=== PATIENT | male | born 1935 | race Caucasian/White ===

== ENCOUNTER → 2018-08-26 10:07 | Outpatient (CLI) | payer MEDICARE, OTHER, SELFPAY ==
--- NOTE | 2018-08-26 | DI.CT.S_ITS ---
PROCEDURE: CT HEAD/BRAIN WO CON INDICATIONS: Headache TECHNIQUE: Noncontrast 4.5 mm thick angled axial sections acquired from the foramen magnum to the vertex, with coronal and sagittal reformats. For radiation dose reduction, the following was used: automated exposure control, adjustment of mA and/or kV according to patient size. COMPARISON: None. FINDINGS: Image quality: Excellent. CSF spaces: Basal cisterns are patent. No extra-axial fluid collections. The ventricles are symmetric in size and shape. Brain: No intracranial bleeds or masses. There is cerebral volume loss for age, with resultant ventricular and sulcal prominence. There are periventricular and deep white matter chronic small vessel ischemic changes. There is intracranial internal carotid artery atherosclerosis. Skull and face: Calvarium and visualized facial bones appear intact, without suspicious lesions. Sinuses: Partially visualized trace bilateral maxillary sinus mucosal thickening. IMPRESSION: No acute intracranial process. Diffuse small white matter signal changes, probably represent chronic microvascular ischemic disease, versus statistically less likely demyelination or other infectious, inflammatory, neurodegenerative etiology, technically nonspecific. Dictated by: Russ Paulino M.D. on 08/26/2018 at 11:04 Approved by: Russ Paulino M.D. on 08/26/2018 at 11:06
== END ==
PROVIDERS: PCP Internal Medicine; Visit Provider Internal Medicine
DX: R51 Headache (principal)
CPT/HCPCS: 70450

== ENCOUNTER 2021-06-03 16:18 | Emergency (ER) | payer MEDICARE, OTHER, SELFPAY ==
[2021-06-03] VITALS (19 sets, daily range): BP systolic 132–174; BP diastolic 58–115; PULSE 67–101; RESP 13–27; TEMP 36.1; O2SAT 94–99; BMI 30.8
--- NOTE | 2021-06-03 16:53 | DI.RAD.S_ITS ---
PROCEDURE: XR CHEST 1V INDICATIONS: altered mental status TECHNIQUE: One view of the chest was acquired. COMPARISON: None. FINDINGS: Surgical changes and devices: None. Lungs and pleura: Lungs appear clear. No pleural effusions or pneumothorax. Mediastinum: Mediastinal contours appear normal. Heart size is within normal limits. Bones and chest wall: No suspicious bony lesions. Overlying soft tissues appear unremarkable. IMPRESSION: No acute cardiopulmonary abnormality identified. Dictated by: Emmanuel Monreal M.D. on 06/03/2021 at 17:16 Approved by: Emmanuel Monreal M.D. on 06/03/2021 at 17:16
[2021-06-03 17:19] LABS: Add Manual Diff / Slide Review NO; Basophils Absolute Auto 100 /uL (0-100); Basophils Percent Auto 1.2 % (0-2); Eosinophils Absolute Auto 300 /uL (0-450); Eosinophils Percent Auto 3.7 % (2-4); Hematocrit 39.1 % (41-53); Hemoglobin 13.3 g/dL (13.5-17.5); Lymphocytes Absolute Auto 1600 /uL (1100-4500); Lymphocytes Percent Auto 24.2 % (25-40); Mean Corpuscular HGB Conc 34.1 % (30-36); Mean Corpuscular Hemoglobin 32.6 PG (26-34); Mean Corpuscular Volume 95.6 fL (80-100); Monocytes Absolute Auto 800 /uL (0-900); Monocytes Percent Auto 12.2 % (3-14); Neutrophils Absolute Auto 4000 /uL (1500-7000); Neutrophils Percent Auto 58.7 % (50-75); Platelet Count 281 X10^3/uL (150-400); Red Blood Cell Count 4.09 X10^6/uL (4.5-5.9); Red Cell Distribution Width 14.5 % (11.6-14.8); White Blood Cell Count 6.8 X10^3/uL (4.5-11.0)
--- NOTE | 2021-06-03 17:28 | DI.CT.S_ITS ---
PROCEDURE: CT HEAD/BRAIN WO CON INDICATIONS: acute confusion TECHNIQUE: Noncontrast 4.5 mm thick angled axial sections acquired from the foramen magnum to the vertex, with coronal and sagittal reformats. For radiation dose reduction, the following was used: automated exposure control, adjustment of mA and/or kV according to patient size. COMPARISON: [facility], CT, CT HEAD/BRAIN WO CON, 08/26/2018, 10:19. FINDINGS: Image quality: Excellent. CSF spaces: Basal cisterns are patent. No extra-axial fluid collections. The ventricles are symmetric in size and shape. Brain: A focus of intraparenchymal hemorrhage can be seen involving the anterior aspect of the right frontal lobe that measures 3 cm. Moderate surrounding edema is seen. There is a mild amount of mass effect seen. There is cerebral volume loss for age, with resultant ventricular and sulcal prominence. There are periventricular and deep white matter chronic small vessel ischemic changes. There is intracranial internal carotid artery atherosclerosis. Skull and face: Calvarium and visualized facial bones appear intact, without suspicious lesions. Sinuses: Visualized sinuses and mastoids are clear. IMPRESSION: A 3 cm focus of right frontal lobe intraparenchymal hemorrhage can be seen, with surrounding edema and mild mass effect. Note: Critical finding acute intracranial hemorrhage discussed by telephone with Dr. Cummins at 5:00 p.m. [place] time on June 03, 2021. Dictated by: Lex Preston M.D. on 06/03/2021 at 16:58 Approved by: Lex Preston M.D. on 06/03/2021 at 17:00
[2021-06-03 17:47] LABS: Alanine Aminotransferase 25 IU/L (<50); Albumin 4.3 g/dL (3.5-5.0); Albumin Globulin Ratio 1.3 (1.0-2.8); Alkaline Phosphatase 52 U/L (38-126); Aspartate Aminotransferase 34 IU/L (17-59); BUN Creatinine Ratio 20.2 (6-22); Bilirubin Total 0.3 mg/dL (0.2-1.3); Blood Urea Nitrogen 17 mg/dL (9-20); Calcium 9.6 mg/dL (8.4-10.2); Carbon Dioxide 31 mmol/L (22-32); Chloride 102 mmol/L (98-107); Creatine Kinase 56 U/L (55-170); Estimated Glomerular Filt Rate > 60.0 mL/min (>60); Globulin 3.2 g/dL (1.7-4.1); Glucose 147 mg/dL (80-110); HEMOLYSIS < 15 (0-50); Potassium 4.1 mmol/L (3.4-5.1); Sodium 140 mmol/L (137-145); Total Protein 7.5 g/dL (6.3-8.2)
[2021-06-03 17:59] LABS: Troponin I < 0.012 ng/mL (0.01-0.034)
--- NOTE | 2021-06-03 18:02 | ED_ITS ---
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 His describes acute cold sensation with chills but no fever beginning on the of on the she noted some mild confusion and over the ensuing 4 days his symptoms seem to be stable if not improving. By the she felt that he was back to his baseline but on the again more confused she brings him him for further evaluation this evening. She describes no chest pain, palpitations, nausea, vomiting, diarrhea, abdominal pain. His chronic gait disturbance has not changed his vision that is limited due to the glaucoma has not change. He denies headache. They have not checked blood pressures or blood sugars over this week. She notes that his answers to questions are somewhat slowed however that does not seem to be so far off from his baseline. Specifically day notice no increased weakness, stumbling. They do note that he has had some chronic right side back pain approximately mid back and lateral for six-month was that is worse when he moves worse with a deep breath found for which they have not scheduled any appointments with the physician. On Anticoagulants: Yes (ASA 81 mg daily) Related Data Home Medications Medication Instructions Recorded Confirmed aspirin 81 mg tablet,delayed 81 mg PO QDAY #0 12/28/12 06/03/21 release allopurinol 300 mg tablet 300 mg PO DAILY 06/03/21 06/03/21 amlodipine 5 mg tablet 5 mg PO DAILY 06/03/21 06/03/21 brimonidine 0.2 %-timolol 0.5 % 1 drp EYE-RIGHT BID 06/03/21 06/03/21 eye drops (Kenzie) carvedilol 3.125 mg tablet 3.125 mg PO BID 06/03/21 06/03/21 dorzolamide 2 % eye drops 1 drp EYE-BOTH BID 06/03/21 06/03/21 losartan 100 mg tablet 100 mg PO DAILY 06/03/21 06/03/21 metformin 500 mg tablet 1,000 mg PO BID 06/03/21 06/03/21 pantoprazole 40 mg tablet,delayed 40 mg PO BID 06/03/21 06/03/21 release simvastatin 20 mg tablet 20 mg PO BEDTIME 06/03/21 06/03/21 Allergies Allergy/AdvReac Type Severity Reaction Status Date / Time No Known Drug Allergies Allergy Verified 06/03/21 16:28 Review of Systems Review of Systems Narrative: Remainder of complete review of systems is otherwise unremarkable except for that included in the HPI. Hematologic/Lymphatic On Anticoagulants: Yes (ASA 81 mg daily) Patient History Medical History (Updated 06/03/21 @ 19:20 by Maribel Ponce MD) Hyperlipidemia Hypertension Prostate cancer Type 2 diabetes mellitus Surgical History (Updated 06/03/21 @ 18:44 by Maribel Ponce MD) H/O blepharoplasty Social History Smoking Status: Former smoker Smoking Status: Former smoker alcohol intake frequency: 0-2 drinks per day Substance Use Type: does not use Exam Narrative Exam Narrative: General: no acute distress. Well-nourished well-developed. Slowed answers overall but he is able to speak without significant dysarthria HEENT: Moist mucous membranes, normal sclera, symmetrical extraocular eye movement, Neck: No JVD, supple Respiratory: Lungs are clear to auscultation, no wheezing no rales no rhonchi. Full and symmetrical air movement Cardiac: Regular rate and rhythm no murmurs no bruits Abdomen: Soft, nontender, good bowel tones, no flank pain Skin: Warm and dry, no rashes Neurologic: Moving all extremities, no decreased sensation, visual acuity seems to be at baseline with decreased vision in the left and blind in the right, overall cognitively slowed(which feels is his baseline), minor word-finding difficulties (again, feels this is baseline), no significant ataxia Extremities: No trauma, well perfused, no lower extremity edema Psych: Cooperative, fluent speech with normal thought process, cognitive slowin g Initial Vital Signs Initial Vital Signs: Vital Signs Temperature 97.0 F L 06/03/21 16:23 Pulse Rate 80 06/03/21 16:23 Respiratory Rate 17 06/03/21 16:23 Blood Pressure 168/78 H 06/03/21 16:23 Pulse Oximetry 99 06/03/21 16:23 Scores NIH Stroke Scale Level of Conciousness: Alert, keenly responsive Ask month/age: Answers both questions correctly. Open/close eyes, close hand: Performs both tasks correctly Best gaze horizontal: Normal (Limited by baseline visual deficits from severe glaucoma) Visual cobb: No visual loss (No change from his baseline) Facial palsy: Normal symetrical movement Left arm drift: No drift for full 10 sec Right arm drift: No drift for full 10 sec Left leg drift: No drift for full 5 sec Right leg drift: No drift for full 5 sec Limb ataxia: Absent Sensory on face/arms/legs: Normal, no sensory loss Best language: No aphasia, normal (Slowed responses but appropriate) Dysarthria: Normal Extinction or inattention: No abnormality Total NIH Stroke scale score: 0 Citation:: Patient has had a right frontal hemorrhagic stroke. As this is a hemorrhagic stroke, he is not a tPA candidate Course Orders Ordered: Discontinued Medications Nicardipine HCl 25 mg/ Sodium (Chloride) 250 mls @ 50 mls/hr IV TITRATE REBECA; Protocol Last Titration: 06/03/21 20:00 Dose: 0 mg/hr, 0 mls/hr Documented by: Admin: 06/03/21 18:05 Dose: 5 mg/hr, 50 mls/hr Documented by: AUTUMN Vital Signs Vital signs: Vital Signs - 8 hr 06/03/21 16:23 06/03/21 17:57 06/03/21 17:58 Temperature 97.0 F L Pulse Rate 80 67 Respiratory Rate 17 21 Blood Pressure 168/78 H 169/81 H Pulse Oximetry 99 94 96 06/03/21 18:00 06/03/21 18:01 06/03/21 18:10 Temperature Pulse Rate 69 70 70 Respiratory Rate 15 16 16 Blood Pressure 174/87 H 163/77 H Pulse Oximetry 98 98 96 06/03/21 18:20 06/03/21 18:25 06/03/21 18:30 Temperature Pulse Rate 79 83 91 H Respiratory Rate 17 23 25 H Blood Pressure 170/81 H Pulse Oximetry 98 98 06/03/21 18:31 06/03/21 18:40 06/03/21 18:50 Temperature Pulse Rate 101 H 77 78 Respiratory Rate 27 H 15 13 Blood Pressure 163/115 H 140/77 144/72 H Pulse Oximetry 98 98 98 06/03/21 19:00 06/03/21 19:01 06/03/21 19:10 Temperature Pulse Rate 78 79 95 H Respiratory Rate 15 16 20 Blood Pressure 149/70 H 157/91 H Pulse Oximetry 98 97 94 MDM - Neuro Symptoms/Deficit Lab Data Result diagrams: 06/03/21 17:14 06/03/21 17:14 Labs: Lab Results 06/03/21 06/03/21 06/03/21 Range/Units 17:14 17:14 17:14 WBC 6.8 (4.5-11.0) X10^3/uL RBC 4.09 L (4.5-5.9) X10^6/uL Hgb 13.3 L (13.5-17.5) g/dL Hct 39.1 L (41-53) % MCV 95.6 (80-100) fL MCH 32.6 (26-34) PG MCHC 34.1 (30-36) % RDW 14.5 (11.6-14.8) % Plt Count 281 (150-400) X10^3/uL Neut % (Auto) 58.7 (50-75) % Lymph % (Auto) 24.2 L (25-40) % [place] % (Auto) 12.2 (3-14) % Eos % (Auto) 3.7 (2-4) % Baso % (Auto) 1.2 (0-2) % Neut # (Auto) 4000 (2970-0231) /uL Lymph # (Auto) 1600 (7607-6957) /uL [place] # (Auto) 800 (0-900) /uL Eos # (Auto) 300 (0-450) /uL Baso # (Auto) 100 (0-100) /uL Sodium 140 (137-145) mmol/L Potassium 4.1 (3.4-5.1) mmol/L Chloride 102 (98-107) mmol/L Carbon Dioxide 31 (22-32) mmol/L BUN 17 (9-20) mg/dL Creatinine 0.84 (0.66-1.25) mg/dL Estimated GFR > 60.0 (>60) mL/min BUN/Creatinine Ratio 20.2 (6-22) Glucose 147 H (80-110) mg/dL Calcium 9.6 (8.4-10.2) mg/dL Total Bilirubin 0.3 (0.2-1.3) mg/dL AST 34 (17-59) IU/L ALT 25 (<50) IU/L Alkaline Phosphatase 52 (38-126) U/L Total Creatine Kinase 56 (55-170) U/L CK-MB (CK-2) TNP CK-MB (CK-2) Rel Index TNP Troponin I < 0.012 (0.01-0.034) ng/mL Total Protein 7.5 (6.3-8.2) g/dL Albumin 4.3 (3.5-5.0) g/dL Globulin 3.2 (1.7-4.1) g/dL Albumin/Globulin Ratio 1.3 (1.0-2.8) U Opiates 300ng/mL cut (Negative) Ur Oxycodone Screen (Negative) Urine Methadone Screen (Negative) Ur Barbiturates Screen (Negative) U Tricyclic Antidepress (Negative) Ur Phencyclidine Scrn (Negative) Ur Amphetamines Screen (Negative) U Methamphetamines Scrn (Negative) Ur MDMA Scrn (Ecstasy) (Negative) U Benzodiazepines Scrn (Negative) Urine Cocaine Screen (Negative) U Marijuana (THC) Screen (Negative) SARS-CoV-2 (PCR) (Negative) 06/03/21 06/03/21 Range/Units 18:02 18:43 WBC (4.5-11.0) X10^3/uL RBC (4.5-5.9) X10^6/uL Hgb (13.5-17.5) g/dL Hct (41-53) % MCV (80-100) fL MCH (26-34) PG MCHC (30-36) % RDW (11.6-14.8) % Plt Count (150-400) X10^3/uL Neut % (Auto) (50-75) % Lymph % (Auto) (25-40) % [place] % (Auto) (3-14) % Eos % (Auto) (2-4) % Baso % (Auto) (0-2) % Neut # (Auto) (7420-4593) /uL Lymph # (Auto) (8084-7671) /uL [place] # (Auto) (0-900) /uL Eos # (Auto) (0-450) /uL Baso # (Auto) (0-100) /uL Sodium (137-145) mmol/L Potassium (3.4-5.1) mmol/L Chloride (98-107) mmol/L Carbon Dioxide (22-32) mmol/L BUN (9-20) mg/dL Creatinine (0.66-1.25) mg/dL Estimated GFR (>60) mL/min BUN/Creatinine Ratio (6-22) Glucose (80-110) mg/dL Calcium (8.4-10.2) mg/dL Total Bilirubin (0.2-1.3) mg/dL AST (17-59) IU/L ALT (<50) IU/L Alkaline Phosphatase (38-126) U/L Total Creatine Kinase (55-170) U/L CK-MB (CK-2) CK-MB (CK-2) Rel Index Troponin I (0.01-0.034) ng/mL Total Protein (6.3-8.2) g/dL Albumin (3.5-5.0) g/dL Globulin (1.7-4.1) g/dL Albumin/Globulin Ratio (1.0-2.8) U Opiates 300ng/mL cut Negative (Negative) Ur Oxycodone Screen Negative (Negative) Urine Methadone Screen Negative (Negative) Ur Barbiturates Screen Negative (Negative) U Tricyclic Antidepress Negative (Negative) Ur Phencyclidine Scrn Negative (Negative) Ur Amphetamines Screen Negative (Negative) U Methamphetamines Scrn Negative (Negative) Ur MDMA Scrn (Ecstasy) Negative (Negative) U Benzodiazepines Scrn Negative (Negative) Urine Cocaine Screen Negative (Negative) U Marijuana (THC) Screen Negative (Negative) SARS-CoV-2 (PCR) Negative (Negative) Imaging Data CT scan - head: Radiologist's Impression: FINDINGS:? Image quality:? Excellent.? ? CSF spaces:? Basal cisterns are patent.? No extra-axial fluid collections.? The ventricles are symmetric in size and shape.? ? Brain:? A focus of intraparenchymal hemorrhage can be seen involving the anterior aspect of the right frontal lobe that measures 3 cm.? Moderate surrounding edema is seen.? There is a mild amount of mass effect seen. ? There is cerebral volume loss for age, with resultant ventricular and sulcal prominence.? There are periventricular and deep white matter chronic small vessel ischemic changes.? There is intracranial internal carotid artery atherosclerosis.? ? Skull and face:? Calvarium and visualized facial bones appear intact, without suspicious lesions.? ? Sinuses:? Visualized sinuses and mastoids are clear.? ? ? IMPRESSION:? A 3 cm focus of right frontal lobe intraparenchymal hemorrhage can be seen, with surrounding edema and mild mass effect. ? Note:? Critical finding acute intracranial hemorrhage discussed by telephone with Dr. Cummins at 5:00 p.m. [place] time on June 03, 2021. ? ? ? Dictated by: Lex Preston M.D. on 06/03/2021 at 16:58 ? ? Chest x-ray: Radiologist's Impression: FINDINGS:? ? Surgical changes and devices:? None.? ? Lungs and pleura:? Lungs appear clear.? No pleural effusions or pneumothorax.? ? Mediastinum:? Mediastinal contours appear normal.? Heart size is within normal limits.? ? Bones and chest wall:? No suspicious bony lesions.? Overlying soft tissues appear unremarkable.? ? IMPRESSION:? No acute cardiopulmonary abnormality identified. ? ? ? Dictated by: Emmanuel Monreal M.D. on 06/03/2021 at 17:16 ? ? ECG Data Interpretation: Sinus rhythm at a rate of 73 Frequent PVCs Left ventricular hypertrophy No acute ischemic changes MDM Narrative Medical decision making narrative: 55-year-old gentleman with a right frontal hemorrhagic stroke likely 5 to 6-day-old with surrounding vasogenic edema but no significant shift. Main concern is some mild confusion. His is concerned that he does not complete sentences. She notes that they both 10 to have increasing difficulty with word finding as they age that his issues have been more pronounced over the last couple of days. She notes that his higher cognitive functions are somewhat impaired and gives an example of not being able to get into their online bank account. At this point he is a full code and would consider surgery if recommended but would want to know pros and cons of surgical intervention 6:40 pmCT scans were pushed to [facility] however due to current pandemic beds for shortage is they are excepting only transfers critical access hospital. Films were concurrently pushed to [facility] and we are currently waiting for the transfer center to return call Moderately hypertensive with systolics in the 170s to 180s. Nicardipine has been initiated and will aim for a systolic blood pressure in the 140-160 range. As he does not currently have any shift and the bleed is likely a week old will aim closer to the 160 range until directed otherwise by Neurosurgery. 7:11pm [facility]. Directly to medicine attending ER. Accepted ED-ED transfer accepting Dr Brianna Brown. 7:20 findings and plan reviewed with patient and . Questions are answered. Critical Care Time Critical Care Time Critical Care Time: Yes Total Critical Care Time: 39 Attestation: Critical care time is separate from other billable procedures. There is a high probability of a significant, sudden or life-threatening deterioration that requires my full and direct attention, intervention and personal management. This critical care time includes consultation with family and other consulting doctors, review of records, and interpretation of data from labs, EKGs and imaging as well as managements of acute hemorrhagic stroke with hypertensive crisis and IV blood pressure management Discharge Plan Departure Patient Disposition: [facility] Clinical Impression: Hemorrhagic stroke Prescriptions: No Action aspirin 81 MG tablet,delayed release (DR/EC) 81 mg PO QDAY Qty: 0 0RF metformin 500 mg tablet 1,000 mg PO BID 0RF Label Comments: TAKE TWO TABLETS BY MOUTH TWICE DAILY amlodipine 5 mg tablet 5 mg PO DAILY 0RF Label Comments: TAKE 1 TABLET BY MOUTH ONCE A DAY carvedilol 3.125 mg tablet 3.125 mg PO BID 0RF Label Comments: TAKE 1 TABLET BY MOUTH TWICE A DAY WITH FOOD pantoprazole 40 mg tablet,delayed release (DR/EC) 40 mg PO BID 0RF simvastatin 20 mg tablet 20 mg PO BEDTIME 0RF Label Comments: TAKE 1 TABLET BY MOUTH DAILY allopurinol 300 mg tablet 300 mg PO DAILY 0RF Label Comments: TAKE 1 TABLET BY MOUTH EVERY DAY losartan 100 mg tablet 100 mg PO DAILY 0RF Label Comments: TAKE 1 TABLET BY MOUTH DAILY dorzolamide 2 % drops 1 drp EYE-BOTH BID 0RF Label Comments: INSTILL 1 DROP INTO BOTH EYES TWICE A DAY Combigan 0.2-0.5 % drops 1 drp EYE-RIGHT BID 0RF Label Comments: INSTILL 1 DROP IN THE RIGHT EYE EVERY 12 HOURS Referrals: Joseph Crespo MD [Primary Care Provider] -
[2021-06-03] MEDS: NICARDIPINE 25 MG in SODIUM CHLORIDE 0.9% 240 ML 50 ML IV (18:05)
[2021-06-03 18:33] LABS: COVID19 -Nasal RAPID Negative (Negative)
[2021-06-03 18:54] LABS: UR Morphine/Opiate cutoff 300 Negative (Negative); Ur Creatinine Normal (Normal); Ur Specific Gravity Normal (Normal); Urine Amphetamines Negative (Negative); Urine Barbiturates Negative (Negative); Urine Benzodiazepines Negative (Negative); Urine Cocaine Negative (Negative); Urine MDMA Negative (Negative); Urine Methadone Negative (Negative); Urine Methamphetamines Negative (Negative); Urine Oxycodone Negative (Negative); Urine Phencyclidine Negative (Negative); Urine Tetrahydrocannabinol Negative (Negative); Urine Tricyclic Antidepressant Negative (Negative); Urine pH Normal (Normal)
--- NOTE | 2021-06-03 20:01 | PC.NURSE ---
Report given to KLAUDIA RN, Nicardipine continued with [facility] crew.
--- NOTE | 2021-06-03 20:05 | PC.NURSE ---
Gave Directions and main Phone Number and instructed her to take pt valuables home with her.
== END 2021-06-03 20:10 | disposition short-term general hospital (02) ==
PROVIDERS: Emergency Medicine; Emergency Provider Emergency Medicine; PCP Internal Medicine
DX: I61.8 Other nontraumatic intracerebral hemorrhage (principal); I10 Essential (primary) hypertension; Z20.822 Contact with and (suspected) exposure to COVID-19; Z87.891 Personal history of nicotine dependence
CPT/HCPCS: 36415; 70450; 71045; 80053; 80305; 82550; 84484; 85025; 87086; 87635; 93005; 96365; 96366; 99284; 99291; C9803

== ENCOUNTER → 2021-09-30 13:58 | Outpatient (CLI) | payer MEDICARE, OTHER, SELFPAY ==
--- NOTE | 2021-09-30 | DI.MRI.S_ITS ---
PROCEDURE: MR HEAD/BRAIN WO/W CON INDICATIONS: Nontraumatic intracranial hemorrhage, unspecified TECHNIQUE: Noncontrast axial T1 spin echo, axial T2 fast spin echo, sagittal and axial FLAIR, coronal T2 fast spin echo, axial gradient echo, axial diffusion and ADC through the brain. After the administration of contrast, axial and coronal T1 spin echo with fat saturation through the brain. COMPARISON: [facility], CT, CT HEAD/BRAIN WO CON, 08/26/2018, 10:19. [facility], CT, CT HEAD/BRAIN WO CON, 06/03/2021, 17:47. FINDINGS: Image quality: Excellent. CSF spaces: Basal cisterns are patent. No extra-axial fluid collections. Ventricles are normal in size and shape. Brain: No midline shift. No intracranial bleeds or masses. No abnormal intracranial enhancement. There is cerebral volume loss for age. There is periventricular white matter chronic small vessel ischemic change. The brainstem appears normal. Diffusion-weighted images demonstrate no acute ischemic insults. Focal volume loss and encephalomalacia and hemosiderin deposition can be seen involving the right frontal lobe at the site of patient's known prior hemorrhagic infarction. Normal intravascular flow voids are present. Skull and face: Calvarial marrow is normal in signal. Orbits appear normal. Note is made of bilateral lens replacements. Sinuses: Sinuses and mastoids appear clear. IMPRESSION: Expected evolution of the patient's known prior right frontal lobe hemorrhagic infarction. No masses or abnormal enhancement can be seen. Note is made of age-appropriate brain parenchymal volume loss and chronic small vessel ischemic changes. Dictated by: Lex Preston M.D. on 09/30/2021 at 13:56 Approved by: Lex Preston M.D. on 09/30/2021 at 13:59
== END ==
PROVIDERS: PCP Internal Medicine; Referring Provider Psychiatry & Neurology Vascular Neurology; Visit Provider Psychiatry & Neurology Vascular Neurology
DX: I62.9 Nontraumatic intracranial hemorrhage, unspecified (principal); Z86.79 Personal history of other diseases of the circulatory system
CPT/HCPCS: 70553; A9579

== ENCOUNTER → 2021-11-07 11:12 | Outpatient (CLI) | payer MEDICARE, OTHER, SELFPAY ==
[2021-11-07 12:19] LABS: Hematocrit 37.9 % (41-53); Hemoglobin 12.7 g/dL (13.5-17.5); Mean Corpuscular HGB Conc 33.6 % (30-36); Mean Corpuscular Volume 95.3 fL (80-100); Platelet Count 284 X10^3/uL (150-400); Red Blood Cell Count 3.98 X10^6/uL (4.5-5.9); Red Cell Distribution Width 15.4 % (11.6-14.8); White Blood Cell Count 6.3 X10^3/uL (4.5-11.0)
[2021-11-07 12:38] LABS: Alanine Aminotransferase 19 IU/L (<50); Albumin 4.2 g/dL (3.5-5.0); Albumin Globulin Ratio 1.8 (1.0-2.8); Alkaline Phosphatase 52 U/L (38-126); Aspartate Aminotransferase 25 IU/L (17-59); BUN Creatinine Ratio 19.1 (6-22); Bilirubin Total 0.3 mg/dL (0.2-1.3); Blood Urea Nitrogen 17 mg/dL (9-20); Calcium 9.3 mg/dL (8.4-10.2); Carbon Dioxide 29 mmol/L (22-32); Chloride 103 mmol/L (98-107); Cholesterol 118 mg/dL (140-199); Estimated Glomerular Filt Rate > 60 mL/min (>60); Globulin 2.4 g/dL (1.7-4.1); Glucose 206 mg/dL (80-110); HDL Cholesterol 42 mg/dL (40-60); HEMOLYSIS < 15 (0-50); LDL Cholesterol Calculated 45 mg/dL (<100); Potassium 4.8 mmol/L (3.4-5.1); Sodium 140 mmol/L (137-145); Total Protein 6.6 g/dL (6.3-8.2); Triglycerides 153 mg/dL (35-150)
[2021-11-07 12:45] LABS: Hemoglobin A1C% w Est Avg Glu 9.2 % (4.0-6.0)
[2021-11-07 13:09] LABS: TSH w/ Reflex to FT4 3.91 uIU/mL (0.47-4.68)
[2021-11-07 13:29] LABS: Prostate Specific Antigen < 0.064 ng/mL (0.10-4.00)
== END ==
PROVIDERS: PCP Internal Medicine; Referring Provider Internal Medicine; Visit Provider Internal Medicine
DX: E85.4 Organ-limited amyloidosis (principal); E78.2 Mixed hyperlipidemia; Z85.46 Personal history of malignant neoplasm of prostate; E11.40 Type 2 diabetes mellitus with diabetic neuropathy, unspecified; I68.0 Cerebral amyloid angiopathy
CPT/HCPCS: 36415; 80053; 80061; 83036; 84153; 84443; 85027

== ENCOUNTER → 2022-02-06 10:57 | Outpatient (CLI) | payer MEDICARE, OTHER, SELFPAY ==
[2022-02-06 12:12] LABS: BUN Creatinine Ratio 18.8 (6-22); Blood Urea Nitrogen 19 mg/dL (9-20); Calcium 9.3 mg/dL (8.4-10.2); Carbon Dioxide 27 mmol/L (22-32); Chloride 104 mmol/L (98-107); Estimated Glomerular Filt Rate > 60 mL/min (>60); Glucose 194 mg/dL (80-110); HEMOLYSIS < 15 (0-50); Potassium 4.8 mmol/L (3.4-5.1); Sodium 139 mmol/L (137-145)
== END ==
PROVIDERS: PCP Internal Medicine; Referring Provider Internal Medicine; Visit Provider Internal Medicine
DX: E11.40 Type 2 diabetes mellitus with diabetic neuropathy, unspecified (principal); I62.9 Nontraumatic intracranial hemorrhage, unspecified; E85.4 Organ-limited amyloidosis; I68.0 Cerebral amyloid angiopathy
CPT/HCPCS: 36415; 80048; 83036

== ENCOUNTER → 2022-02-17 12:11 | Outpatient (CLI) | payer MEDICARE, OTHER, SELFPAY | PROVIDERS: PCP Internal Medicine; Visit Provider Nurse Practitioner Family | DX: N34.3 Urethral syndrome, unspecified (principal) | CPT/HCPCS: 87086 ==

== ENCOUNTER → 2022-02-20 11:32 | Outpatient (CLI) | payer MEDICARE, OTHER, SELFPAY ==
--- NOTE | 2022-02-20 11:34 | DI.MRI.S_ITS ---
PROCEDURE: MR HEAD/BRAIN WO/W CON INDICATIONS: CVA TECHNIQUE: Noncontrast axial T1 spin echo, axial T2 fast spin echo, sagittal and axial FLAIR, coronal T2 fast spin echo, axial gradient echo, axial diffusion and ADC through the brain. After the administration of contrast, axial and coronal and sagittal 3D VIBE or T1 spin echo with fat saturation through the brain. COMPARISON: [facility], MR, MR HEAD/BRAIN WO/W CON, 09/30/2021, 14:23. FINDINGS: Severe global cerebral volume loss and severe chronic microvascular ischemic changes, similar to 09/30/2021 exam. Right frontal encephalomalacia and gliosis related to remote infarct also similar. No abnormal intracranial enhancement. No unexpected intracranial susceptibility. No findings of mass effect or midline shift. Patent ventricular system and basilar cisterns. No acute orbital abnormality. Paranasal sinuses and mastoid air cells are predominantly clear. IMPRESSION: No acute finding. Chronic findings similar to the previous exam. Dictated by: Tj Beasley M.D. on 02/20/2022 at 13:21 Approved by: Tj Beasley M.D. on 02/20/2022 at 13:24
== END ==
PROVIDERS: PCP Internal Medicine; Referring Provider Internal Medicine; Visit Provider Internal Medicine
DX: I62.9 Nontraumatic intracranial hemorrhage, unspecified (principal); E85.4 Organ-limited amyloidosis; I68.0 Cerebral amyloid angiopathy
CPT/HCPCS: 70553

== ENCOUNTER → 2022-03-08 12:30 | Outpatient (CLI) | payer MEDICARE, OTHER, SELFPAY ==
--- NOTE | 2022-03-08 12:33 | DI.CT.S_ITS ---
PROCEDURE: CT IVP A/P W/WO INDICATIONS: Hematuria TECHNIQUE: Optional 5 mm thick noncontrast images acquired from the diaphragm to the symphysis pubis. After the administration of intravenous contrast, 5 mm thick images acquired from the diaphragm to the symphysis pubis after a 10-minute delay. 2 mm thick coronal and sagittal reformats were then performed of the kidneys and ureters. For radiation dose reduction, the following was used: automated exposure control, adjustment of mA and/or kV according to patient size. COMPARISON: [facility], CR, L-SPINE 2-3 VIEWS, 06/29/2013, 14:30. [facility], CT, ABDOMEN/PELVIS WITH CONTRAST, 03/22/2012, 12:42. FINDINGS: Image quality: Excellent. Lung bases: Lung bases are clear. Heart size is normal. Advanced coronary artery calcification can be seen. There is a moderate hiatal hernia. Urinary system: Both kidneys are normal in size, without hydronephrosis or nephrolithiasis on pre-contrast images. No perinephric fat stranding. There is normal bilateral renal enhancement. Renal calyces appear normal in morphology when filled with contrast. Opacified portions of both ureters demonstrate normal caliber. Bladder wall thickness is exrley-vp-mhzsjaeklg thickening. No calcified bladder stones. Prostate seed implants can be seen. Other solid organs: Along the right liver dome, there is a lobulated focus without significant enhancement measures 3.3 cm, which is attributed to a cyst. The liver is normal in size and demonstrates no suspicious lesions. Gallbladder wall is not thickened. Biliary system is non dilated. Pancreas enhances normally. Spleen is normal in size and enhancement. Generalized thickening is seen of the left adrenal gland. No ernestine adrenal nodules. Peritoneum and bowel: Bowel loops demonstrate normal wall thickness and caliber. No free fluid or air. Colonic diverticulosis is seen, without findings of active diverticulitis. Nodes and vessels: No retroperitoneal or mesenteric adenopathy by size criteria. Aorta and inferior vena cava are normal in size. Prominent atherosclerotic calcification is noted of the aorta. Abdominal wall: There is a moderate fat containing periumbilical hernia Pelvis: No pathologic free pelvic fluid. No inguinal adenopathy. There is a trace right-sided and moderate left-sided inguinal hernia. Bones: No suspicious bony lesions. No vertebral body compression fractures. At least moderate generalized degenerative changes are seen. IMPRESSION: No ernestine cause of hematuria can be seen. Pcqf-fo-[id number] generalized bladder wall thickening is seen, which is felt most likely be related to bladder outlet obstruction in a male patient of this age. No stones or renal masses are seen. Incidental note is made of: Advanced coronary artery calcification Moderate hiatal hernia Apparent liver cyst, stable from 2011 Generalized thickening of the left adrenal gland Moderate fat containing periumbilical hernia Prominent calcification of the aorta Diverticulosis, without active diverticulitis Prostate seed implants Bilateral fat containing inguinal hernias, right larger than left Dictated by: Lex Preston M.D. on 03/08/2022 at 15:10 Approved by: Lex Preston M.D. on 03/08/2022 at 15:16
== END ==
PROVIDERS: Family Provider Internal Medicine; PCP Internal Medicine; Referring Provider Urology; Visit Provider Urology
DX: R31.0 Gross hematuria (principal); I25.10 Atherosclerotic heart disease of native coronary artery without angina pectoris; K44.9 Diaphragmatic hernia without obstruction or gangrene; K42.9 Umbilical hernia without obstruction or gangrene; K40.20 Bilateral inguinal hernia, without obstruction or gangrene, not specified as recurrent; I70.0 Atherosclerosis of aorta; K57.90 Diverticulosis of intestine, part unspecified, without perforation or abscess without bleeding; Z85.46 Personal history of malignant neoplasm of prostate
CPT/HCPCS: 74178; Q9967

== ENCOUNTER 2022-03-31 11:30 | Outpatient (RCR) | payer MEDICARE, OTHER, SELFPAY ==
--- NOTE | 2022-03-24 17:51 | ST.OPIE ---
Visit Care Team Role Provider Type Joseph Crespo MD Attending Provider Physician Family Provider Primary Care Provider Referring Provider Specialty: Internal Medicine Address: [address] [place] [address], [facility] Email: [email or web address] Speech-Language Pathology Initial Evaluation [employer] Adult Cognitive Linguistic Eval Start: 03/24/22 17:15 Freq: Status: Active Protocol: Document 03/24/22 17:41 LNK (Rec: 03/24/22 17:51 LNK [id number]) Adult Cognitive Linguistic Evaluation Session Time Visit Start Time 11:30 Visit Stop Time 12:30 Total Visit Minutes 60 Visit Information Visit Number 1 Plan of Care Dates 03/24/22-06/23/22 Referral Reason for Referral WF/Memory Setting Assessment Location Outpatient Care Visit Type Note Type Initial evaluation Next Note Type Next Note Type Treatment Note Patient Information Identification Type Name Patient History Pt was seen for c/o memory difficulties and 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 Pt was transferred from [facility] to [facility], where he received treatment. MRI results indicated a 3cm infarct in the right frontal lobe. According to him and his , his WFD and memory have improved since May. Pt and his also reported that their daughter had a stroke recently and they are concerned for her. Pt is also receiving PT,and has a scheduled sleep apnea test coming soon. Pt is not sure that he wants to take on something new with ST Hearing Hearing Level Hearing Aids Previous Therapy Previous Speech-Language Therapy No Informal Assessment Receptive Language Normal WFL Expressive Language Normal No: Pt c/o WFD Expressive Language Impairment(s) Confrontation naming,Divergent naming Pragmatic Language Normal Yes Speech Normal No: No overt s/sx of dysarthria or apraxia; however pt speaks very slowly Cognition Normal No: Pt c/o memory Cognitive Impairment(s) Short-term memory Formal Assessment Results Session was spent gathering background and PMH. Pt speaks very slowly with long pauses between words. According to the pt's , he has always been a slow speaker, however, his speaking has become slower since his stroke. Overall, the pt presented with mild WFD/ aphasia. He was able to express himself clearly with few occasions of WFD. Because of this, the session was spent gathering information and discussing with pt whether or not he wants to continue therapy . He stated his priority is his daughter. Pt and his were encouraged to discuss his options and they will notify this clinic with their decision.
--- NOTE | 2022-03-31 16:36 | ST.OPDS ---
Visit Care Team Role Provider Type Joseph Crespo MD Attending Provider Physician Family Provider Primary Care Provider Referring Provider Address: [address] [place] [address], [id number] HOSPITAL LABORATORY TECHNICIAN Treatment Note HOSPITAL LABORATORY TECHNICIAN Treatment Note Start: 03/24/22 17:15 Freq: Status: Active Protocol: Document 03/31/22 16:16 ELVISK (Rec: 03/31/22 16:35 LNK [id number]) Speech Pathology Treatment Note Session Time Visit Start Time 11:30 Visit Stop Time 12:40 Total Visit Minutes 70 Visit Information Visit Number 2 Plan of Care Dates 03/24/22-06/23/22 Setting Treatment Setting Outpatient Care Visit Type Note Type Treatment Note Next Note Type Next Note Type Discharge Summary General Information Patient History Pt was seen for c/o memory difficulties and 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 Pt was transferred from [facility] to [facility], where he received treatment. MRI results indicated a 3cm infarct in the right frontal lobe. According to him and his , his WFD and memory have improved since May. Pt and his also reported that their daughter had a stroke recently and they are concerned for her. Pt is also receiving PT,and has a scheduled sleep apnea test coming soon. Pt is not sure that he wants to take on something new with ST Subjective Identification Type Name,Date of Others Present Family,Additional Therapist Observations/Patient Presentation pt and his attended therapy today. Both remarked that pt's WFD and memory have improved since his stroke. Patient Knowledge/Awareness of HOSPITAL LABORATORY TECHNICIAN Role Excellent in Treatment Objective Treatment Activities Pt and his noted that their children have been insistent the pt attend ST. When asked about WFD, the pt noted that he speaks slowly because he always has and that overall, he is very shy. Additionally, the pt feels that his WFD is very mild and that he eventually will remember words or situations. In discussing the location of the pt's CVA, both he and his have noticed increased impulsivity, personality change or any of the symptoms described to them . Pt is 86 years old and many of his symptoms can be attributed to normal cognitive decline with age. Both the pt and his agree that there really has not been any changes in pt's communication with the exception that his speech is slower. An OME and DKS testing indicated form and function to be WFL. It is this HOSPITAL LABORATORY TECHNICIAN's opinion that ST would not be beneficial nor is it needed at this time. Will d/c pt Assessment Assessment of Improvement After discussion with the pt and his , they agreed that St is not indicated at this time Patient/Caregiver Understanding Excellent Plan Amount of Therapy Recommended No Further Therapy Frequency of Treatment No Further Therapy Therapy Recommendations Discharge from Speech Therapy
== END 2022-04-04 09:39 | disposition home or self-care (01) ==
LOC: SP 11:30
PROVIDERS: Family Provider Internal Medicine; PCP Internal Medicine; Referring Provider Internal Medicine; Visit Provider Internal Medicine
DX: E85.4 Organ-limited amyloidosis (principal); I68.0 Cerebral amyloid angiopathy; I62.9 Nontraumatic intracranial hemorrhage, unspecified
CPT/HCPCS: 92507; 92523

== ENCOUNTER → 2022-05-12 10:52 | Outpatient (CLI) | payer MEDICARE, OTHER, SELFPAY ==
[2022-05-12 11:43] LABS: Appearance Urine UA CLEAR; Bilirubin Urine UA NEGATIVE (NEGATIVE); Color Urine UA YELLOW; Glucose Urine UA TRACE g/dL (Negative); Ketones Urine UA NEGATIVE (NEGATIVE); Leukocyte Esterase Urine UA TRACE (NEGATIVE); Nitrite Urine UA NEGATIVE (Negative); Occult Blood Urine UA 1+ (Negative); Protein Urine UA NEGATIVE (Negative); Urobilinogen Urine UA 0.2 E.U./dL (0.2)
[2022-05-12 12:03] LABS: Bacteria Urine Occasional (0-1); Mucus Urine 1+ (Negative); RBC Urine 1-5/HPF (0-5/HPF); Squamous Epithelial Cell Urine 1-5 /HPF (0-5/HPF); WBC Urine 0-1/HPF (0-5/HPF)
[2022-05-12 12:04] LABS: Culture Indicated Urine Specimen Cultured
== END ==
PROVIDERS: Family Provider Internal Medicine; PCP Internal Medicine; Referring Provider Urology; Visit Provider Urology
DX: N35.812 Other bulbous urethral stricture, male (principal); R31.0 Gross hematuria
CPT/HCPCS: 81001; 87086

== ENCOUNTER → 2022-05-16 11:29 | Outpatient (CLI) | payer MEDICARE, OTHER, SELFPAY ==
[2022-05-16 11:52] LABS: COVID19 -Nasal RAPID Negative (Negative)
== END ==
PROVIDERS: Family Provider Internal Medicine; PCP Internal Medicine; Visit Provider Urology
DX: Z20.822 Contact with and (suspected) exposure to COVID-19 (principal)
CPT/HCPCS: 87635; C9803

== ENCOUNTER 2022-05-19 07:47 | Day surgery (SDC) | payer MEDICARE, OTHER, SELFPAY ==
[2022-05-14 10:29] VITALS: BMI 28.0
[2022-05-19] VITALS (10 sets, daily range): BP systolic 89–120; BP diastolic 63–74; PULSE 63–79; RESP 9–21; TEMP 36.1–37.2; O2SAT 90–98; BMI 27.7
--- NOTE | 2022-05-19 08:39 | PM.PREOP ---
Pre-operative Note COVID-19 COVID-19 status: Negative Result date/Date tested (Pos, Neg/Pending): 05/16/22 Criteria for continued procedure: Delay expected to result in less-positive ultimate med/surg outcome and Non-surgical alternatives not available or appropriate per current SOC Interval Note History & Physical reviewed/Exam performed by Physician: Yes Changes to H&P: No
[2022-05-19] MEDS: LACTATED RINGERS 1,000 ML 84 ML IV (08:45)
[2022-05-19] MEDS: CEFAZOLIN 2 GM/100 ML PREMIX 100 ML IV (09:13)
[2022-05-19] MEDS: LIDOCAINE 1% (PF) 5 ML 1 ML INJ (09:19)
--- NOTE | 2022-05-19 09:20 | SUR.OPER ---
Lithotomy on padded OR bed, head on pillow, arms secured on padded arm boards at <90 degrees abduction. Legs secured in padded yellow fins stirrups.
--- NOTE | 2022-05-19 09:33 | PM.OP.1 ---
Procedure & Clinicians Procedure: Cystoscopy with periurethral injection of steroid and direct vision internal urethrotomy Same procedure as scheduled: Yes Indications: This 86-year-old male who has a history of prostate cancer and brachytherapy presented with complaints of hematuria and bladder outlet obstruction. 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 He presents this time for the above procedure. Surgeon: Jeet Abel Click Yes if Unassisted: Yes Anesthesia Type: General and Peripheral nerve block Operative Notes Findings: Findings: Urethra normal to the mid to proximal bulbar urethra where there is blanching evidence of radiation treatment and a tight stricture. 2 cc of Kenalog 40 and 1 cc of 1% lidocaine were injected in 4 aliquots around the stricture. Once into the prostatic fossa it was widely patent and resected is also blanched with varicosities consistent with radiation changes plaque. The ureteral orifices were normal position with clear efflux there were no other abnormalities noted within the bladder other than severe trabeculation cellules. A 22 Georgian all silicone catheter Councill tip was left in place with 14 cc of sterile water in the balloon. Closure Type: not applicable Specimen(s): none sent Applied: catheter (Twenty-two Georgian [place] tip catheter all silicone 14 cc of sterile water in the balloon left in place.) Estimated Blood Loss (mL): 0 Blood products transfused: none Procedure in detail: Procedure in detail: After informed consent was obtained, the patient was identified and brought to the operating room. Patient was then placed in a supine position on the table and anesthesia was induced and maintained as well as antibiotics administered. Ensuring an adequate level of anesthesia the patient was transitioned to the lithotomy position where he was prepped, draped and prepared for transurethral procedure. After prepping draping and ensuring an adequate level of anesthesia a 21 Georgian cystoscope was passed a level is stricture. At the stricture the cystoscopic needle was inserted and at the 12 3 9 and 6 o'clock position an aliquot of the Kenalog was instilled. The cystoscope was then backed out and the direct vision urethra tome inserted to the level the stricture. An Amplatz extra stiff wire was then passed across the stricture and curled within the bladder. Then using the cold knife the 12 o'clock position the stricture was incised and opened quite nicely. The scope was then passed into the bladder quite easily were cystoscopy was performed. The bladder was drained. And then refilled the area of the stricture was once again observed and it was nicely dilated. With the bladder full the scope was backed out the wire was left in place. The Councill tip catheter was then passed over the wire and into the bladder with the balloon was filled 14 cc of sterile water the wire was then removed and the catheter to gravity drainage. The patient was then awakened taken to the postanesthesia care unit having tolerated the procedure well there were no complications. The patient is to follow up my office in approximately 10-14 days for follow-up visit and voiding trial. Complications: none Post-operative Condition: stable Disposition: PACU Plan for aftercare: Patient is to be discharged home with his Nguyễn catheter. Follow-up my office in 10-14 days for voiding trial and catheter removal.
[2022-05-19] MEDS: TRIAMCINOLONE 40 MG/ML VIAL 80 MG IM (09:47)
[2022-05-19] MEDS: PHENAZOPYRIDINE 100 MG TABLET 200 MG PO (10:01)
[2022-05-19] MEDS: OXYBUTYNIN 5 MG TABLET PO (10:02)
== END 2022-05-19 11:45 | disposition home or self-care (01) ==
PROVIDERS: Family Provider Internal Medicine; PCP Internal Medicine; Referring Provider Urology; Visit Provider Urology
PROC: (CPT 52283; principal; 2022-05-19 09:15)
PROC: 0TND8ZZ Release Urethra, Via Natural or Artificial Opening Endoscopic (ICD-10-PCS; CPT 52276; 2022-05-19 09:15)
DX: N35.912 Unspecified bulbous urethral stricture, male (principal); R31.0 Gross hematuria; N13.8 Other obstructive and reflux uropathy; Z85.46 Personal history of malignant neoplasm of prostate
CPT/HCPCS: 52283; 52276; J0690; J1100; J2405; J2704; J3010

== ENCOUNTER → 2022-05-26 13:12 | Outpatient (CLI) | payer MEDICARE, OTHER, SELFPAY | PROVIDERS: Family Provider Internal Medicine; PCP Internal Medicine; Visit Provider Urology | DX: N35.919 Unspecified urethral stricture, male, unspecified site (principal); R31.9 Hematuria, unspecified | CPT/HCPCS: 87086; 99211 ==

== ENCOUNTER → 2022-05-28 15:53 | Outpatient (CLI) | payer MEDICARE, OTHER, SELFPAY ==
[2022-05-28 16:28] LABS: Hemoglobin A1C% w Est Avg Glu 8.2 % (4.0-6.0)
[2022-05-28 16:41] LABS: BUN Creatinine Ratio 16.3 (6-22); Blood Urea Nitrogen 16 mg/dL (9-20); Calcium 9.4 mg/dL (8.4-10.2); Carbon Dioxide 29 mmol/L (22-32); Chloride 104 mmol/L (98-107); Estimated Glomerular Filt Rate > 60 mL/min (>60); Glucose 145 mg/dL (80-110); HEMOLYSIS < 15 (0-50); Potassium 4.4 mmol/L (3.4-5.1); Sodium 141 mmol/L (137-145)
== END ==
PROVIDERS: Family Provider Internal Medicine; PCP Internal Medicine; Referring Provider Internal Medicine; Visit Provider Internal Medicine
DX: E11.40 Type 2 diabetes mellitus with diabetic neuropathy, unspecified (principal); I10 Essential (primary) hypertension
CPT/HCPCS: 36415; 80048; 83036

== ENCOUNTER → 2022-06-03 11:13 | Outpatient (CLI) | payer MEDICARE, OTHER, SELFPAY ==
[2022-06-03 11:18] LABS: Appearance Urine UA CLEAR; Bilirubin Urine UA NEGATIVE (NEGATIVE); Color Urine UA YELLOW; Glucose Urine UA TRACE g/dL (Negative); Ketones Urine UA NEGATIVE (NEGATIVE); Leukocyte Esterase Urine UA 2+ (NEGATIVE); Nitrite Urine UA NEGATIVE (Negative); Occult Blood Urine UA 1+ (Negative); Protein Urine UA TRACE (Negative); Urobilinogen Urine UA 0.2 E.U./dL (0.2)
[2022-06-03 11:22] LABS: Bacteria Urine Few (2-10); Culture Indicated Urine Specimen Cultured; RBC Urine 1-5/HPF (0-5/HPF); Squamous Epithelial Cell Urine 0-1 /HPF (0-5/HPF); WBC Urine 5-10/HPF (0-5/HPF)
== END ==
PROVIDERS: Family Provider Internal Medicine; PCP Internal Medicine; Visit Provider Urology
DX: N35.919 Unspecified urethral stricture, male, unspecified site (principal); R31.9 Hematuria, unspecified
CPT/HCPCS: 51798; 81001; 87086

== ENCOUNTER → 2022-06-10 10:13 | Outpatient (CLI) | payer MEDICARE, OTHER, SELFPAY ==
[2022-06-10 11:15] LABS: Appearance Urine UA SL CLOUDY; Bilirubin Urine UA NEGATIVE (NEGATIVE); Color Urine UA YELLOW; Glucose Urine UA NEGATIVE (Negative); Ketones Urine UA TRACE (NEGATIVE); Leukocyte Esterase Urine UA 3+ (NEGATIVE); Nitrite Urine UA NEGATIVE (Negative); Occult Blood Urine UA 3+ (Negative); Protein Urine UA 1+ (Negative); Specific Gravity Urine UA 1.015 (1.000-1.035); Urobilinogen Urine UA 0.2 E.U./dL (0.2)
[2022-06-10 11:32] LABS: Bacteria Urine Occasional (0-1); Culture Indicated Urine Specimen Cultured; RBC Urine 1-5/HPF (0-5/HPF); Squamous Epithelial Cell Urine 0-1 /HPF (0-5/HPF); WBC Urine 10-30/HPF (0-5/HPF)
== END ==
PROVIDERS: Family Provider Internal Medicine; PCP Internal Medicine; Visit Provider Urology
DX: R31.9 Hematuria, unspecified (principal); N35.919 Unspecified urethral stricture, male, unspecified site
CPT/HCPCS: 51798; 81001; 87077; 87086

== ENCOUNTER → 2022-06-13 15:07 | Outpatient (CLI) | payer MEDICARE, OTHER, SELFPAY ==
[2022-06-13 15:40] LABS: Bilirubin Urine UA NEGATIVE (NEGATIVE); Color Urine UA YELLOW; Glucose Urine UA NEGATIVE (Negative); Ketones Urine UA NEGATIVE (NEGATIVE); Leukocyte Esterase Urine UA 1+ (NEGATIVE); Nitrite Urine UA NEGATIVE (Negative); Occult Blood Urine UA 3+ (Negative); Protein Urine UA TRACE (Negative); Urobilinogen Urine UA 0.2 E.U./dL (0.2)
[2022-06-13 15:41] LABS: Appearance Urine UA Slightly Cloudy
[2022-06-13 16:01] LABS: RBC Urine 10-30/HPF (0-5/HPF)
[2022-06-13 16:03] LABS: Amorphous Sediment Urine 1+; WBC Urine 1-5/HPF (0-5/HPF)
[2022-06-13 16:04] LABS: Bacteria Urine Occasional (0-1); Culture Indicated Urine Specimen Cultured; Squamous Epithelial Cell Urine 1-5 /HPF (0-5/HPF)
== END ==
PROVIDERS: Family Provider Internal Medicine; PCP Internal Medicine; Referring Provider Urology; Visit Provider Urology
DX: N35.812 Other bulbous urethral stricture, male (principal); R31.0 Gross hematuria
CPT/HCPCS: 81001; 87086

== ENCOUNTER → 2022-09-05 12:14 | Outpatient (CLI) | payer MEDICARE, OTHER, SELFPAY ==
[2022-09-05 14:12] LABS: Hemoglobin A1C% w Est Avg Glu 7.9 % (4.0-6.0)
[2022-09-05 14:13] LABS: Aspartate Aminotransferase 26 IU/L (17-59); Blood Urea Nitrogen 16 mg/dL (9-20); Calcium 9.1 mg/dL (8.4-10.2); Carbon Dioxide 28 mmol/L (22-32); Chloride 101 mmol/L (98-107); Cholesterol 117 mg/dL (140-199); Estimated Glomerular Filt Rate > 60 mL/min (>60); Glucose 208 mg/dL (80-110); HDL Cholesterol 46 mg/dL (40-60); HEMOLYSIS 15 (0-50); LDL Cholesterol Calculated 42 mg/dL (<100); Sodium 139 mmol/L (137-145); Triglycerides 146 mg/dL (35-150)
== END ==
PROVIDERS: Family Provider Internal Medicine; PCP Internal Medicine; Referring Provider Internal Medicine; Visit Provider Internal Medicine
DX: E11.40 Type 2 diabetes mellitus with diabetic neuropathy, unspecified (principal); E78.2 Mixed hyperlipidemia; I10 Essential (primary) hypertension
CPT/HCPCS: 36415; 80048; 80061; 83036; 84450

== ENCOUNTER → 2022-12-11 15:01 | Outpatient (CLI) | payer MEDICARE, OTHER, SELFPAY ==
[2022-12-11 16:49] LABS: Hematocrit 37.5 % (41-53); Hemoglobin 12.8 g/dL (13.5-17.5); Mean Corpuscular HGB Conc 34.1 % (30-36); Mean Corpuscular Hemoglobin 33.8 PG (26-34); Mean Corpuscular Volume 99.2 fL (80-100); Platelet Count 259 X10^3/uL (150-400); Red Blood Cell Count 3.78 X10^6/uL (4.5-5.9); Red Cell Distribution Width 15.3 % (11.6-14.8); White Blood Cell Count 7.9 X10^3/uL (4.5-11.0)
[2022-12-11 17:05] LABS: Blood Urea Nitrogen 17 mg/dL (9-20); Calcium 9.2 mg/dL (8.4-10.2); Carbon Dioxide 26 mmol/L (22-32); Chloride 103 mmol/L (98-107); Estimated Glomerular Filt Rate > 60 mL/min (>60); Glucose 121 mg/dL (80-110); HEMOLYSIS < 15 (0-50); Potassium 4.6 mmol/L (3.4-5.1); Sodium 139 mmol/L (137-145)
[2022-12-12 06:44] LABS: x Labcorp Estim. Avg Glu (eAG) 177 mg/dL (.); x Labcorp Hemoglobin A1c 7.8 % (4.8-5.6)
== END ==
PROVIDERS: Family Provider Internal Medicine; PCP Internal Medicine; Referring Provider Internal Medicine; Visit Provider Internal Medicine
DX: E11.40 Type 2 diabetes mellitus with diabetic neuropathy, unspecified (principal); E85.4 Organ-limited amyloidosis; I68.0 Cerebral amyloid angiopathy; I62.9 Nontraumatic intracranial hemorrhage, unspecified
CPT/HCPCS: 80048; 83036; 85027

== ENCOUNTER → 2023-03-18 11:41 | Outpatient (CLI) | payer MEDICARE, OTHER, SELFPAY ==
[2023-03-18 13:12] LABS: BUN Creatinine Ratio 19.5 (6-22); Blood Urea Nitrogen 17 mg/dL (9-20); Calcium 9.2 mg/dL (8.4-10.2); Carbon Dioxide 27 mmol/L (22-32); Chloride 104 mmol/L (98-107); Estimated Glomerular Filt Rate > 60 mL/min (>60); Glucose 116 mg/dL (80-110); HEMOLYSIS < 15 (0-50); Potassium 4.6 mmol/L (3.4-5.1); Sodium 139 mmol/L (137-145)
[2023-03-18 13:17] LABS: Hemoglobin A1C% w Est Avg Glu 6.9 % (4.0-6.0)
[2023-03-18 16:06] LABS: Creatinine Urine Random 99.2 mg/dL
[2023-03-18 16:10] LABS: Microalbumin Urine Random 1.1 mg/dL (0-1.6)
== END ==
PROVIDERS: Family Provider Internal Medicine; PCP Internal Medicine; Referring Provider Internal Medicine; Visit Provider Internal Medicine
DX: E11.40 Type 2 diabetes mellitus with diabetic neuropathy, unspecified (principal); G62.9 Polyneuropathy, unspecified; I10 Essential (primary) hypertension; I62.9 Nontraumatic intracranial hemorrhage, unspecified
CPT/HCPCS: 36415; 80048; 82043; 82570; 83036

== ENCOUNTER → 2023-03-24 10:07 | Outpatient (CLI) | payer MEDICARE, OTHER, SELFPAY ==
[2023-03-24 11:41] LABS: Prostate Specific Antigen < 0.064 ng/mL (0.10-4.00)
== END ==
PROVIDERS: Family Provider Internal Medicine; PCP Internal Medicine; Referring Provider Urology; Visit Provider Urology
DX: Z85.46 Personal history of malignant neoplasm of prostate (principal)
CPT/HCPCS: 36415; 84153

== ENCOUNTER → 2023-06-24 11:15 | Outpatient (CLI) | payer MEDICARE, OTHER, SELFPAY ==
[2023-06-24 11:59] LABS: Hematocrit 36.6 % (41-53); Hemoglobin 12.4 g/dL (13.5-17.5); Mean Corpuscular Volume 102.9 fL (80-100); Platelet Count 304 X10^3/uL (150-400); Red Blood Cell Count 3.55 X10^6/uL (4.5-5.9); Red Cell Distribution Width 16.4 % (11.6-14.8); White Blood Cell Count 7.5 X10^3/uL (4.5-11.0)
[2023-06-24 12:19] LABS: BUN Creatinine Ratio 18.9 (6-22); Blood Urea Nitrogen 18 mg/dL (9-20); Calcium 9.9 mg/dL (8.4-10.2); Carbon Dioxide 29 mmol/L (22-32); Chloride 103 mmol/L (98-107); Estimated Glomerular Filt Rate > 60 mL/min (>60); Glucose 151 mg/dL (80-110); HEMOLYSIS < 15 (0-50); Potassium 4.8 mmol/L (3.4-5.1); Sodium 138 mmol/L (137-145)
== END ==
PROVIDERS: Family Provider Internal Medicine; PCP Internal Medicine; Referring Provider Internal Medicine; Visit Provider Internal Medicine
DX: E11.40 Type 2 diabetes mellitus with diabetic neuropathy, unspecified (principal); I10 Essential (primary) hypertension
CPT/HCPCS: 36415; 80048; 83036; 85027

== ENCOUNTER → 2023-07-14 16:41 | Outpatient (CLI) | payer MEDICARE, SELFPAY ==
[2023-07-14 17:32] LABS: Influenza A - CEPHEID Flu A NEGATIVE (NEGATIVE); Influenza B - CEPHEID Flu B NEGATIVE (NEGATIVE); Respiratory Syncytial Virus Negative (Negative)
[2023-07-14 17:34] LABS: COVID-19 CEPHEID 4-PLEX PCR POSITIVE (Negative)
== END ==
PROVIDERS: Family Provider Internal Medicine; PCP Internal Medicine; Visit Provider Nurse Practitioner Family
DX: R05.1 Acute cough (principal); R30.0 Dysuria
CPT/HCPCS: 0241U; 87086

== ENCOUNTER → 2023-07-14 17:26 | Outpatient (CLI) | payer MEDICARE, SELFPAY ==
--- NOTE | 2023-07-14 17:30 | DI.RAD.S_ITS ---
PROCEDURE: XR CHEST 2V INDICATIONS: Cough TECHNIQUE: 2 views of the chest were acquired. COMPARISON: [facility], CR, XR CHEST 1V, 06/03/2021, 17:00. FINDINGS: Surgical changes and devices: None. Lungs and pleura: Patchy bibasilar airspace opacities. Mediastinum: Mediastinal contours are normal. Heart size is enlarged. Bones and chest wall: No suspicious bony abnormalities. Soft tissues appear unremarkable. IMPRESSION: Patchy bibasilar airspace opacities, which could represent multifocal infection, or aspiration. Dictated by: Riki Navas M.D. on 07/15/2023 at 12:08 Approved by: Riki Navas M.D. on 07/15/2023 at 12:08
== END ==
LOC: DI 17:29
PROVIDERS: Family Provider Internal Medicine; PCP Internal Medicine; Referring Provider Nurse Practitioner Family; Visit Provider Nurse Practitioner Family
DX: R05.9 Cough, unspecified (principal); R05.1 Acute cough; R30.0 Dysuria
CPT/HCPCS: 0241U; 71046; 87086

== ENCOUNTER 2023-07-16 11:15 | Emergency (ER) | payer MEDICARE, SELFPAY ==
[2023-07-16 11:23] VITALS: BP 126/70; PULSE 62; RESP 18; TEMP 37.1; O2SAT 98; BMI 25.8
--- NOTE | 2023-07-16 11:41 | ED.GENADULT ---
HPI - General Adult General Chief complaint: Upper Respiratory Symptoms Stated complaint: covid+ sent by [facility] Time Seen by Provider: 07/16/23 11:27 Source: patient and family Mode of arrival: Wheelchair History of Present Illness HPI narrative: Patient is an 87-year-old male. Two days ago was seen in the walk-in clinic. Had a chest x-ray which showed potential pneumonia. Had a respiratory panel drawn what she did not get the results until the next morning. It was subsequently positive for COVID. Patient was started on Augmentin. Had a urinalysis which initially was concerning for UTI. Patient's states that he still is not better. He is having fatigue and cough. He denies any urinary symptoms. He has had 2 days of the antibiotics. They received a call yesterday from the individual that they saw the walk-in clinic who asked that they come to the emergency department for further evaluation. Patient was asleep at the time so they waited until this morning. Patient denies chest pain. He has having a cough. No abdominal pain. Related Data Home Medications Medication Instructions Recorded Confirmed brimonidine 0.2 %-timolol 0.5 % 1 drp EYE-RIGHT BID 06/03/21 07/14/23 eye drops (Combigan) cholecalciferol (vitamin D3) 25 25 mcg PO DAILY 11/07/21 07/14/23 mcg (1,000 unit) capsule netarsudil 0.02 %-latanoprost 1 drp ophthalmic (eye) QPM 11/07/21 07/14/23 0.005 % eye drops (Rocklatan) ketoconazole 2 % shampoo 1 applic topical 2XW PRN 05/28/22 07/14/23 dorzolamide 2 % eye drops 1 drp EYE-LEFT BID 03/18/23 07/14/23 Previous Rx's Medication Instructions Recorded allopurinol 300 mg tablet 300 mg PO DAILY #90 tabs 07/04/22 pantoprazole 40 mg tablet,delayed 40 mg PO BID #180 tabs 07/04/22 release amlodipine 10 mg tablet 10 mg PO DAILY #90 tabs 10/22/22 carvedilol 3.125 mg tablet 3.125 mg PO BID #180 tabs 10/22/22 metformin 500 mg tablet 1,000 mg (2 x 500 mg) PO BID #360 10/22/22 tabs losartan 100 mg tablet 100 mg PO DAILY #90 tabs 04/20/23 simvastatin 20 mg tablet 20 mg PO BEDTIME #90 tabs 04/24/23 memantine 5 mg tablet 5 mg PO BID #180 tabs 06/24/23 mirtazapine 15 mg tablet 7.5 mg (1/2 x 15 mg) PO BEDTIME 06/24/23 #45 tabs amoxicillin 875 mg-potassium 1 tab PO BID #14 tabs 07/14/23 clavulanate 125 mg tablet Allergies Allergy/AdvReac Type Severity Reaction Status Date / Time Sulfa (Sulfonamide Allergy Verified 07/16/23 11:26 Antibiotics) donepezil AdvReac Intermediate Diarrhea Verified 07/16/23 11:26 Review of Systems Constitutional Constitutional: Reports system reviewed and no additional complaints, except as documented Cardiovascular Cardiovascular: Reports system reviewed and no additional complaints, except as documented Respiratory Respiratory: Reports system reviewed and no additional complaints, except as documented Gastrointestinal Gastrointestinal: Reports system reviewed and no additional complaints, except as documented Integumentary/Breasts Skin/Breast: Reports system reviewed and no additional complaints, except as documented Neurologic Neurologic: Reports system reviewed and no additional complaints, except as documented Hematologic/Lymphatic On Anticoagulants: No Patient History Medical History Dementia Depression, major, recurrent Nocturia Incomplete emptying of bladder Mild cognitive impairment History of radioisotope therapy Urethral stricture High blood pressure Hematuria Obstructive sleep apnea Overweight Personal history of malignant neoplasm of prostate Open angle with borderline findings, low risk, bilateral Trigeminal neuralgia Unspecified lack of coordination Chronic gout, unspecified, without tophus (tophi) Mixed hyperlipidemia Essential hypertension Polyneuropathy, unspecified Type 2 diabetes mellitus with diabetic neuropathy, unspecified Cerebral amyloid angiopathy Nontraumatic intracranial hemorrhage, unspecified Vitiligo Actinic keratosis Pneumonia Pneumothorax Stroke Gout Mumps Measles Chicken pox Vertigo Hearing loss Cataracts, bilateral Hemorrhoid GERD (gastroesophageal reflux disease) Skin cancer Prostate cancer Type 2 diabetes mellitus Surgical History History of prostate biopsy Anesthesia History of eye surgery History of cataract removal with insertion of prosthetic lens (~1999) History of tonsillectomy (~1947) H/O blepharoplasty Family History Father History of heart disease Mother Stroke Brother Cancer Hypertension Hearing impairment Sister Cancer Stroke Hypertension Social History marital status: number of children: 2 household members: spouse Smoking Status: Former smoker alcohol intake: current Type(s) of exercise: other frequency: 1-2 times per week Smoking Status: Former smoker alcohol intake frequency: a few times a week Substance Use Type: does not use Exam Initial Vital Signs Initial Vital Signs: Vital Signs Temperature 98.8 F 07/16/23 11:23 Pulse Rate 62 07/16/23 11:23 Respiratory Rate 18 07/16/23 11:23 Blood Pressure 126/70 07/16/23 11:23 Pulse Oximetry 98 07/16/23 11:23 Oxygen Delivery Method Room Air 07/16/23 11:23 Const General: cooperative, comfortable and No ill appearing HENMT Head: normal to inspection and normocephalic Resp Effort & Inspection: normal respiratory effort Auscultation: clear to auscultation bilaterally Cardio Rate: regular rate Rhythm: regular rhythm GI Inspection: normal to inspection Neuro General: patient alert, patient awake and moves all extremities Course Orders Ordered: ED Orders 07/16/23 11:31 EKG-12 Lead Stat 07/16/23 12:08 Complete Blood Count AUTO DIFF Stat Comprehensive Metabolic Panel Stat Discontinued Medications Sodium Chloride (Normal Saline 0.9%) 1,000 mls @ 1,000 mls/hr IV BOLUS ONE Stop: 07/16/23 12:38 Last Admin: 07/16/23 12:22 Dose: 1,000 mls/hr Documented By: SPF Vital Signs Vital signs: Vital Signs - 8 hr 07/16/23 11:23 07/16/23 12:08 Temperature 98.8 F Pulse Rate 62 66 Respiratory Rate 18 20 Blood Pressure 126/70 Pulse Oximetry 98 95 Oxygen Delivery Method Room Air Room Air Medical Decision Making Lab Data 07/16/23 12:08 07/16/23 12:08 Labs: Lab Results 07/16/23 Range/Units 12:08 WBC 4.4 L (4.5-11.0) X10^3/uL RBC 3.45 L (4.5-5.9) X10^6/uL Hgb 12.0 L (13.5-17.5) g/dL Hct 34.9 L (41-53) % MCV 101.3 H (80-100) fL MCH 34.7 H (26-34) PG MCHC 34.3 (30-36) % RDW 16.1 H (11.6-14.8) % Plt Count 216 (150-400) X10^3/uL Neut % (Auto) 57.0 (50-75) % Lymph % (Auto) 25.0 (25-40) % [place] % (Auto) 13.5 (3-14) % Eos % (Auto) 3.5 (2-4) % Baso % (Auto) 1.0 (0-2) % Neut # (Auto) 2500 (5771-3447) /uL Lymph # (Auto) 1100 (8929-6438) /uL [place] # (Auto) 600 (0-900) /uL Eos # (Auto) 200 (0-450) /uL Baso # (Auto) 0 (0-100) /uL Sodium 140 (137-145) mmol/L Potassium 4.1 (3.4-5.1) mmol/L Chloride 106 (98-107) mmol/L Carbon Dioxide 27 (22-32) mmol/L BUN 13 (9-20) mg/dL Creatinine 0.84 (0.66-1.25) mg/dL Estimated GFR > 60 (>60) mL/min BUN/Creatinine Ratio 15.5 (6-22) Glucose 109 (80-110) mg/dL Calcium 9.1 (8.4-10.2) mg/dL Total Bilirubin 0.7 (0.2-1.3) mg/dL AST TNP ALT 17 (<50) IU/L Alkaline Phosphatase 52 (38-126) U/L Total Protein 6.9 (6.3-8.2) g/dL Albumin 3.8 (3.5-5.0) g/dL Globulin 3.1 (1.7-4.1) g/dL Albumin/Globulin Ratio 1.2 (1.0-2.8) ECG Data Attestation: I personally reviewed and interpreted this ECG as follows: Interpretation: Sinus rhythm Ventricular rate is 64 Normal axis One PVC Nonspecific ST T wave changes MDM Narrative Medical decision making narrative: Review of the patient's record shows that he was started on Augmentin for what was originally thought as a UTI and also pneumonia. We now know that pneumonia is most likely COVID which does not require antibiotics. Urine culture is also resulted. It shows less than 100,000 colony-forming units of bacteria/use that would cause any infection in the patient is not having any UTI symptoms. I advised that he stop taking the Augmentin. He has not hypoxic. Not tachypneic. Lungs are clear. Received fluid. Will discharge home with return precautions. Discharge Plan Departure Patient Disposition: Home Clinical Impression: COVID-19 Instructions: COVID-19 Activity Restrictions/Additional Instructions: Recommend that you continue to take all of your medications as directed. Be sure that your increasing your fluid intake. Be sure that you follow all CDC guidelines with regard to quarantine. These can be found online. Return to the emergency department for worsening problems breathing. Prescriptions: No Action amoxicillin-pot clavulanate 875-125 mg tablet 1 tab PO BID Qty: 14 0RF allopurinol 300 mg tablet 300 mg PO DAILY Qty: 90 3RF pantoprazole 40 mg tablet,delayed release (DR/EC) 40 mg PO BID Qty: 180 3RF amlodipine 10 mg tablet 10 mg PO DAILY Qty: 90 3RF metformin 500 mg tablet 1,000 mg PO BID Qty: 360 3RF carvedilol 3.125 mg tablet 3.125 mg PO BID Qty: 180 3RF losartan 100 mg tablet 100 mg PO DAILY Qty: 90 3RF simvastatin 20 mg tablet 20 mg PO BEDTIME Qty: 90 3RF memantine 5 mg tablet 5 mg PO BID Qty: 180 3RF mirtazapine 15 mg tablet 7.5 mg PO BEDTIME Qty: 45 3RF Hold Instructions: poss. sedation Rocklatan 0.02-0.005 % drops 1 drp ophthalmic (eye) QPM cholecalciferol (vitamin D3) 25 mcg (1,000 unit) capsule 25 mcg PO DAILY ketoconazole 2 % shampoo 1 applic topical 2XW PRN brimonidine-timolol [Combigan] 0.2-0.5 % drops 1 drp EYE-RIGHT BID Patient Comments: INSTILL 1 DROP IN THE RIGHT EYE EVERY 12 HOURS dorzolamide 2 % drops 1 drp EYE-LEFT BID Referrals: Joseph Crespo MD [Primary Care Provider] - Stand Alone Forms: Patient Portal/API
[2023-07-16 12:08] VITALS: PULSE 66; RESP 20; O2SAT 95
[2023-07-16] MEDS: SODIUM CHLORIDE 0.9% 1,000 ML 1000 ML IV (12:22)
[2023-07-16 12:23] LABS: Add Manual Diff / Slide Review NO; Basophils Absolute Auto 0 /uL (0-100); Eosinophils Absolute Auto 200 /uL (0-450); Eosinophils Percent Auto 3.5 % (2-4); Hematocrit 34.9 % (41-53); Lymphocytes Absolute Auto 1100 /uL (1100-4500); Mean Corpuscular HGB Conc 34.3 % (30-36); Mean Corpuscular Hemoglobin 34.7 PG (26-34); Mean Corpuscular Volume 101.3 fL (80-100); Monocytes Absolute Auto 600 /uL (0-900); Monocytes Percent Auto 13.5 % (3-14); Neutrophils Absolute Auto 2500 /uL (1500-7000); Platelet Count 216 X10^3/uL (150-400); Red Blood Cell Count 3.45 X10^6/uL (4.5-5.9); Red Cell Distribution Width 16.1 % (11.6-14.8); White Blood Cell Count 4.4 X10^3/uL (4.5-11.0)
[2023-07-16 12:30] VITALS: BP 135/70; PULSE 66; RESP 21; O2SAT 95
[2023-07-16 12:37] LABS: Alanine Aminotransferase 17 IU/L (<50); Albumin 3.8 g/dL (3.5-5.0); Albumin Globulin Ratio 1.2 (1.0-2.8); Alkaline Phosphatase 52 U/L (38-126); BUN Creatinine Ratio 15.5 (6-22); Bilirubin Total 0.7 mg/dL (0.2-1.3); Blood Urea Nitrogen 13 mg/dL (9-20); Calcium 9.1 mg/dL (8.4-10.2); Carbon Dioxide 27 mmol/L (22-32); Chloride 106 mmol/L (98-107); Estimated Glomerular Filt Rate > 60 mL/min (>60); Globulin 3.1 g/dL (1.7-4.1); Glucose 109 mg/dL (80-110); Potassium 4.1 mmol/L (3.4-5.1); Sodium 140 mmol/L (137-145); Total Protein 6.9 g/dL (6.3-8.2)
[2023-07-16 13:00] VITALS: PULSE 67; RESP 21; O2SAT 95
[2023-07-16 13:01] VITALS: BP 139/60; PULSE 72; RESP 21; O2SAT 95
[2023-07-17 15:01] LABS: HEMOLYSIS 45 (0-50)
[2023-07-17 15:08] LABS: Aspartate Aminotransferase 31 IU/L (17-59)
== END 2023-07-16 13:38 | disposition home or self-care (01) ==
PROVIDERS: Emergency Provider Emergency Medicine; Family Provider Internal Medicine; PCP Internal Medicine
DX: U07.1 COVID-19 (principal); R06.02 Shortness of breath; Z79.899 Other long term (current) drug therapy
CPT/HCPCS: 36415; 80053; 85025; 93005; 96360; 99284

== ENCOUNTER 2023-07-23 10:50 | Emergency (ER) | payer MEDICARE, SELFPAY ==
[2023-07-23] VITALS (18 sets, daily range): BP systolic 109–145; BP diastolic 51–81; PULSE 67–91; RESP 14–22; TEMP 36.6–36.9; O2SAT 88–99
--- NOTE | 2023-07-23 11:22 | DI.RAD.S_ITS ---
PROCEDURE: XR CHEST 1V INDICATIONS: chest pain TECHNIQUE: One view of the chest was acquired. COMPARISON: [facility], CR, XR CHEST 2V, 07/14/2023, 17:37. FINDINGS: Surgical changes and devices: None. Lungs and pleura: There is new moderate reticulonodular opacity within the right upper lung. No pleural effusions or pneumothorax. Mediastinum: Mediastinal contours appear normal. Heart size is normal. Bones and chest wall: No suspicious bony lesions. Overlying soft tissues appear unremarkable. IMPRESSION: Right upper lung pneumonia. Continued plain film surveillance is recommended to ensure resolution, and to exclude underlying or central malignancy. Dictated by: Ayo Hall M.D. on 07/23/2023 at 12:04 Approved by: Ayo Hall M.D. on 07/23/2023 at 12:04
[2023-07-23 11:48] LABS: Add Manual Diff / Slide Review NO; Basophils Absolute Auto 100 /uL (0-100); Basophils Percent Auto 1.2 % (0-2); Eosinophils Absolute Auto 200 /uL (0-450); Eosinophils Percent Auto 2.5 % (2-4); Hematocrit 34.9 % (41-53); Hemoglobin 11.8 g/dL (13.5-17.5); Lymphocytes Absolute Auto 1100 /uL (1100-4500); Lymphocytes Percent Auto 15.8 % (25-40); Mean Corpuscular HGB Conc 33.7 % (30-36); Mean Corpuscular Hemoglobin 34.5 PG (26-34); Mean Corpuscular Volume 102.2 fL (80-100); Monocytes Absolute Auto 600 /uL (0-900); Neutrophils Absolute Auto 4800 /uL (1500-7000); Neutrophils Percent Auto 71.5 % (50-75); Platelet Count 251 X10^3/uL (150-400); Red Blood Cell Count 3.41 X10^6/uL (4.5-5.9); Red Cell Distribution Width 15.8 % (11.6-14.8); White Blood Cell Count 6.8 X10^3/uL (4.5-11.0)
[2023-07-23 11:52] LABS: INR 1.3 (0.9-1.3); Prothrombin Time 14.7 SECONDS (9.4-12.5)
[2023-07-23 11:54] LABS: PTT Partial Thromboplastin Tim 36 SECONDS (25.1-36.5)
[2023-07-23 11:57] LABS: Alanine Aminotransferase 12 IU/L (<50); Albumin 3.7 g/dL (3.5-5.0); Albumin Globulin Ratio 1.1 (1.0-2.8); Alkaline Phosphatase 60 U/L (38-126); Aspartate Aminotransferase 22 IU/L (17-59); BUN Creatinine Ratio 14.1 (6-22); Bilirubin Total 0.5 mg/dL (0.2-1.3); Blood Urea Nitrogen 13 mg/dL (9-20); Calcium 9.4 mg/dL (8.4-10.2); Carbon Dioxide 27 mmol/L (22-32); Chloride 102 mmol/L (98-107); Creatine Kinase < 20 U/L (55-170); Estimated Glomerular Filt Rate > 60 mL/min (>60); Globulin 3.3 g/dL (1.7-4.1); Glucose 110 mg/dL (80-110); HEMOLYSIS < 15 (0-50); Lipase 125 U/L (23-300); Magnesium 1.3 mg/dL (1.6-2.3); Potassium 4.4 mmol/L (3.4-5.1); Sodium 137 mmol/L (137-145)
[2023-07-23 11:58] LABS: Lactate (Lactic Acid) 0.9 mmol/L (0.7-2.1)
[2023-07-23 12:09] LABS: Troponin I < 0.012 ng/mL (0.01-0.034)
[2023-07-23 12:13] LABS: Procalcitonin 0.05 ng/mL (<0.5)
[2023-07-23] MEDS: SODIUM CHLORIDE 0.9% 1,000 ML 1000 ML IV (13:05)
--- NOTE | 2023-07-23 13:37 | ED_ITS ---
HPI - Weakness General Chief complaint: Weakness Stated complaint: here a wk ago, not feeling better, no energy Time Seen by Provider: 07/23/23 13:37 Source: patient and family Mode of arrival: Wheelchair Limitations: other (dementia, at baseline mentation per .) History of Present Illness HPI Narrative: This is a 87-year-old male history of diabetes, hypertension, dyslipidemia, severe glaucoma, prior history of prostate cancer status post seed placement, dementia and prior stroke. Patient recently had COVID he was diagnosed a week ago she states he has been a little bit more lethargic particularly when sitting will eat occasionally but not always. She states he has been ambulating at the house, she states he is able to ambulate to the bathroom and even ambulate to the car today. She states he seems slightly weaker. Lateralizing weakness. Patient has not had any fevers, no shortness of breath no complaint of chest pain. states he had very tenacious thick sputum almost like rubber cement which is cleared. He has been taking Mucinex in his completing azithromycin. He was initially given amoxicillin but was told changed to azithromycin. On his 5th day of azithromycin. Patient has not had any nausea or vomiting. He has had regular bowel movements. He was having diarrhea initially with his COVID but that is resolved. No new urinary changes there was some blood in his urine and his hospital stay here on the 4th but states he has not had any other symptoms. She states he is chronic swelling in his extremities but are improved from normal. Patient is allergic to sulfa and donepizil. No tobacco, alcohol or illicit. Dr. Crespo is his PCP. Related Data Home Medications Medication Instructions Recorded Confirmed brimonidine 0.2 %-timolol 0.5 % 1 drp EYE-RIGHT BID 06/03/21 07/14/23 eye drops (Combigan) cholecalciferol (vitamin D3) 25 25 mcg PO DAILY 11/07/21 07/14/23 mcg (1,000 unit) capsule netarsudil 0.02 %-latanoprost 1 drp ophthalmic (eye) QPM 11/07/21 07/14/23 0.005 % eye drops (Rocklatan) ketoconazole 2 % shampoo 1 applic topical 2XW PRN 05/28/22 07/14/23 dorzolamide 2 % eye drops 1 drp EYE-LEFT BID 03/18/23 07/14/23 Previous Rx's Medication Instructions Recorded allopurinol 300 mg tablet 300 mg PO DAILY #90 tabs 07/04/22 pantoprazole 40 mg tablet,delayed 40 mg PO BID #180 tabs 07/04/22 release amlodipine 10 mg tablet 10 mg PO DAILY #90 tabs 10/22/22 carvedilol 3.125 mg tablet 3.125 mg PO BID #180 tabs 10/22/22 metformin 500 mg tablet 1,000 mg (2 x 500 mg) PO BID #360 10/22/22 tabs losartan 100 mg tablet 100 mg PO DAILY #90 tabs 04/20/23 simvastatin 20 mg tablet 20 mg PO BEDTIME #90 tabs 04/24/23 memantine 5 mg tablet 5 mg PO BID #180 tabs 06/24/23 mirtazapine 15 mg tablet 7.5 mg (1/2 x 15 mg) PO BEDTIME 06/24/23 #45 tabs azithromycin 250 mg tablet See Rx Instructions PO .COMPLEX #6 07/17/23 tabs Allergies Allergy/AdvReac Type Severity Reaction Status Date / Time Sulfa (Sulfonamide Allergy Verified 07/23/23 11:10 Antibiotics) donepezil AdvReac Intermediate Diarrhea Verified 07/23/23 11:10 Review of Systems Review of Systems ROS Unobtainable: All systems reviewed & are unremarkable except as noted in HPI and below Patient History Medical History Dementia Depression, major, recurrent Nocturia Incomplete emptying of bladder Mild cognitive impairment History of radioisotope therapy Urethral stricture High blood pressure Hematuria Obstructive sleep apnea Overweight Personal history of malignant neoplasm of prostate Open angle with borderline findings, low risk, bilateral Trigeminal neuralgia Unspecified lack of coordination Chronic gout, unspecified, without tophus (tophi) Mixed hyperlipidemia Essential hypertension Polyneuropathy, unspecified Type 2 diabetes mellitus with diabetic neuropathy, unspecified Cerebral amyloid angiopathy Nontraumatic intracranial hemorrhage, unspecified Vitiligo Actinic keratosis Pneumonia Pneumothorax Stroke Gout Mumps Measles Chicken pox Vertigo Hearing loss Cataracts, bilateral Hemorrhoid GERD (gastroesophageal reflux disease) Skin cancer Prostate cancer Type 2 diabetes mellitus Surgical History History of prostate biopsy Anesthesia History of eye surgery History of cataract removal with insertion of prosthetic lens (~1999) History of tonsillectomy (~1947) H/O blepharoplasty Family History Father History of heart disease Mother Stroke Brother Cancer Hypertension Hearing impairment Sister Cancer Stroke Hypertension Social History marital status: number of children: 2 household members: spouse Smoking Status: Former smoker alcohol intake: current Type(s) of exercise: other frequency: 1-2 times per week Smoking Status: Former smoker alcohol intake frequency: a few times a week Substance Use Type: does not use Exam Narrative Exam Narrative: GEN: Elderly male, alert and oriented self, does answer questions, patient appears to be in mild distress. HEENT: Atraumatic, pupils are equal round reactive to light, extraocular movements are intact, nares are clear, there is no conjunctival pallor. Throat is clear without any exudates, erythema, tonsillar enlargement or uvular deviation HEART: Regular rate and rhythm without murmur, clicks, rubs. Pulses are equal in upper and lower extremities LUNGS:Lungs clear to auscultation, no wheezes, rales, crackles, chest moves symmetrically ABD:bowel sounds normal, soft, non-tender, no guarding, rebound, rigidity, no masses noted, no hepatosplenomegaly :No CVA tenderness MSCL: Non-tender, no muscle atrophy, muscles strength 5/5 upper and lower extremities, full range of motion NEURO:CN 2-12 intact, sensation normal SKIN: Rash, erythema or other skin changes. Initial Vital Signs Initial Vital Signs: Vital Signs Temperature 97.8 F 07/23/23 11:07 Pulse Rate 82 07/23/23 11:07 Respiratory Rate 14 07/23/23 11:07 Blood Pressure 127/81 07/23/23 11:07 Pulse Oximetry 92 07/23/23 11:07 Oxygen Delivery Method Room Air 07/23/23 11:07 Course Orders Ordered: ED Orders 07/23/23 11:19 Blood Culture Stat 07/23/23 11:22 XR chest 1V Stat 07/23/23 11:27 Complete Blood Count AUTO DIFF Stat Comprehensive Metabolic Panel Stat Lactate (Lactic Acid) Stat Lipase Stat Magnesium Stat PTT Partial Thromboplastin Ahsan Stat Procalcitonin Stat Prothrombin Time INR Stat Troponin & CK Cardiac Panel Stat 07/23/23 12:52 EKG-12 Lead Stat 07/23/23 13:56 Consult to [facility] - [employer] Stat 07/23/23 14:51 Urine Culture Stat Urine Microscopic Stat Discontinued Medications Sodium Chloride (Normal Saline 0.9%) 1,000 mls @ 1,000 mls/hr IV BOLUS ONE Stop: 07/23/23 12:21 Last Infusion: 07/23/23 14:20 Dose: Infused Documented By: Admin: 07/23/23 13:05 Dose: 1,000 mls/hr Documented By: YONATAN Magnesium Sulfate (Magnesium Sulfate) 2 gm in 50 mls @ 25 mls/hr IV NOW ONE Stop: 07/23/23 15:36 Last Infusion: 07/23/23 15:43 Dose: Infused Documented By: ZOILA Co-signed By: ZAK Admin: 07/23/23 13:50 Dose: 25 mls/hr Documented By: SAM Co-signed By: ZAK Ondansetron HCl (Ondansetron 4 Mg/2 Ml Inj) 4 mg IV NOW PRN PRN Reason: Nausea And Vomiting Ondansetron HCl (Ondansetron 4 Mg Odt) 4 mg SL NOW PRN PRN Reason: Nausea And Vomiting Vital Signs Vital signs: Vital Signs - 8 hr 07/23/23 11:07 07/23/23 12:40 07/23/23 12:41 Temperature 97.8 F Pulse Rate 82 70 Respiratory Rate 14 20 Blood Pressure 127/81 132/68 Pulse Oximetry 92 95 Oxygen Delivery Method Room Air Oxygen Flow Rate 07/23/23 12:45 07/23/23 12:45 07/23/23 13:00 Temperature Pulse Rate 67 76 Respiratory Rate 21 17 Blood Pressure 127/58 L Pulse Oximetry 99 96 Oxygen Delivery Method Oxygen Flow Rate 07/23/23 13:00 07/23/23 13:15 07/23/23 13:15 Temperature Pulse Rate 72 Respiratory Rate 20 Blood Pressure 116/65 125/61 Pulse Oximetry 95 Oxygen Delivery Method Oxygen Flow Rate 07/23/23 13:30 07/23/23 13:30 07/23/23 13:45 Temperature Pulse Rate 67 69 Respiratory Rate 15 21 Blood Pressure 139/61 Pulse Oximetry 95 95 Oxygen Delivery Method Oxygen Flow Rate 07/23/23 13:45 07/23/23 14:00 07/23/23 14:00 Temperature Pulse Rate 71 Respiratory Rate 19 Blood Pressure 141/62 H 136/64 Pulse Oximetry 93 Oxygen Delivery Method Oxygen Flow Rate 07/23/23 14:27 07/23/23 14:27 07/23/23 14:30 Temperature Pulse Rate 84 73 Respiratory Rate 17 18 Blood Pressure 145/65 H Pulse Oximetry 91 93 Oxygen Delivery Method Oxygen Flow Rate 07/23/23 14:30 07/23/23 14:32 07/23/23 14:33 Temperature Pulse Rate 91 H 72 Respiratory Rate 17 Blood Pressure 133/71 Pulse Oximetry 92 94 Oxygen Delivery Method Oxygen Flow Rate 07/23/23 14:33 07/23/23 14:45 07/23/23 14:45 Temperature Pulse Rate 69 Respiratory Rate 18 Blood Pressure 134/62 139/62 Pulse Oximetry 88 L 92 Oxygen Delivery Method Nasal Cannula Oxygen Flow Rate 2 07/23/23 15:00 07/23/23 15:01 07/23/23 15:01 Temperature Pulse Rate 71 74 Respiratory Rate 18 16 Blood Pressure 140/71 Pulse Oximetry 95 96 Oxygen Delivery Method Oxygen Flow Rate 2 07/23/23 15:15 07/23/23 15:15 07/23/23 16:26 Temperature 98.5 F Pulse Rate 73 75 Respiratory Rate 18 22 Blood Pressure 127/67 109/51 L Pulse Oximetry 97 96 Oxygen Delivery Method Room Air Oxygen Flow Rate MDM - Weakness Lab Data 07/23/23 11:27 07/23/23 11:27 Labs: Lab Results 07/23/23 07/23/23 Range/Units 11:27 14:51 WBC 6.8 (4.5-11.0) X10^3/uL RBC 3.41 L (4.5-5.9) X10^6/uL Hgb 11.8 L (13.5-17.5) g/dL Hct 34.9 L (41-53) % MCV 102.2 H (80-100) fL MCH 34.5 H (26-34) PG MCHC 33.7 (30-36) % RDW 15.8 H (11.6-14.8) % Plt Count 251 (150-400) X10^3/uL Neut % (Auto) 71.5 (50-75) % Lymph % (Auto) 15.8 L (25-40) % Hand % (Auto) 9.0 (3-14) % Eos % (Auto) 2.5 (2-4) % Baso % (Auto) 1.2 (0-2) % Neut # (Auto) 4800 (2917-6181) /uL Lymph # (Auto) 1100 (3512-9948) /uL Hand # (Auto) 600 (0-900) /uL Eos # (Auto) 200 (0-450) /uL Baso # (Auto) 100 (0-100) /uL PT 14.7 H (9.4-12.5) SECONDS INR 1.3 (0.9-1.3) APTT 36 (25.1-36.5) SECONDS Sodium 137 (137-145) mmol/L Potassium 4.4 (3.4-5.1) mmol/L Chloride 102 (98-107) mmol/L Carbon Dioxide 27 (22-32) mmol/L BUN 13 (9-20) mg/dL Creatinine 0.92 (0.66-1.25) mg/dL Estimated GFR > 60 (>60) mL/min BUN/Creatinine Ratio 14.1 (6-22) Glucose 110 (80-110) mg/dL Lactate 0.9 (0.7-2.1) mmol/L Calcium 9.4 (8.4-10.2) mg/dL Magnesium 1.3 L (1.6-2.3) mg/dL Total Bilirubin 0.5 (0.2-1.3) mg/dL AST 22 (17-59) IU/L ALT 12 (<50) IU/L Alkaline Phosphatase 60 (38-126) U/L Total Creatine Kinase < 20 L (55-170) U/L Troponin I < 0.012 (0.01-0.034) ng/mL Total Protein 7.0 (6.3-8.2) g/dL Albumin 3.7 (3.5-5.0) g/dL Globulin 3.3 (1.7-4.1) g/dL Albumin/Globulin Ratio 1.1 (1.0-2.8) Lipase 125 (23-300) U/L Procalcitonin 0.05 (<0.5) ng/mL Urine RBC 1-5/hpf D (0-5/HPF) Urine WBC 1-5/hpf (0-5/HPF) Ur Squamous Epith Cells 1-5 /hpf (0-5/HPF) Urine Bacteria None seen (None) Ur Culture Indicated? Specimen cultured Urine Dip Bedside Urine Glucose Negative Bedside Urine Bilirubin - Negative Bedside Urine Ketone - Negative Urine Specific [place] 1.010 Bedside Urine Occult Blood + Bedside Urine pH 7.0 Bedside Urine Protein - Negative Bedside Urine Urobilinogen - Negative Bedside Urine Nitrite - Negative Bedside Urine Leukocytes ++ 125 Esterase Imaging Data Chest x-ray: Radiologist Impression: [address] [address] XRay Report Signed Patient: Elder Willett MR#: [id number] : 1935 Acct:[id number] Age/Sex: 87 / M Date of Service: 07/23/23 Loc: ED Accession Number: [id number] Procedure: XR chest 1V Ordering Provider: Grace Dumas D.O. PROCEDURE: XR CHEST 1V INDICATIONS: chest pain TECHNIQUE: One view of the chest was acquired. COMPARISON: [facility], , XR CHEST 2V, 07/14/2023, 17:37. FINDINGS: Surgical changes and devices: None. Lungs and pleura: There is new moderate reticulonodular opacity within the right upper lung. No pleural effusions or pneumothorax. Mediastinum: Mediastinal contours appear normal. Heart size is normal. Bones and chest wall: No suspicious bony lesions. Overlying soft tissues appear unremarkable. IMPRESSION: Right upper lung pneumonia. Continued plain film surveillance is recommended to ensure resolution, and to exclude underlying or central malignancy. Dictated by: Ayo Hall M.D. on 07/23/2023 at 12:04 Approved by: Ayo Hall M.D. on 07/23/2023 at 12:04 ECG Data Attestation: I personally reviewed and interpreted this ECG as follows: Prior ECG tracings: available for review Interpretation: Sinus rhythm frequent PVCs rate of 73 RI 203, QRS of 158 QTC 508. Patient has right bundle-branch block. Nonspecific change from prior on 07/16/23. MDM Narrative Medical decision making narrative: 87-year-old male with recent COVID infection proximally week ago. Had changes consistent possible infection/pneumonia. Patient was initially started on amoxicillin but was switched to azithromycin and has almost completed this he is on his 5th day of azithromycin. notes he seems more lethargic slightly weaker because he has been a little bit less interactive but has been ambulating at home, eating and she describes him even walking to the car to come to the emergency department. He is interactive in the room answers questions appropriately and at baseline per his in terms of chest pain, shortness of breath can not give past medical history. Patient's workup shows stable hemoglobin 11.8 has been in the 12 range since October of 2021 platelets are 251 with white count of 6.8 no leftward shift. Coags are negative, patient's electrolytes appropriate except for magnesium of 1.3 normal renal function and BUN, LFTs are negative troponins negative with a procalcitonin 0.05 and a lactate of 0.9 Chest x-ray shows pneumonia was seen on prior, likely related to his COVID has just been complaining azithromycin discussed with patient and continue this but would not write new antibiotic at this time. Patient did have a urine culture on 07/14/2023 shows mixed Gram-negative brian. Has blood cultures drawn from today. Plan for repeat UA today. UA was cultured but patient has not been symptomatic. Magnesium was replaced. Patient's vital signs here have been appropriate in the department. Ambulation trial patient had no issues. O2 sat 92% with ambulation only drops below 90% when asleep. Patient felt appropriate for discharge home discussed whether to feed antibiotic at this point. Patient's also notes difficulties issues the primary caregiver with minimal support. PHARMACEUTICAL DEVELOPMENT TECHNICIAN to meet with patient and family for potential home health care think patient would benefit. Discharge Plan Departure Patient Disposition: Home Clinical Impression: Pneumonia, Hypomagnesemia Activity Restrictions/Additional Instructions: Please follow-up for recheck as needed. Your x-ray does show pneumonia, complete your antibiotic dose today. This is likely the same pneumonia was on your chest x-ray the other day does take some time to resolve I would recommend follow up in the next 2 weeks for repeat chest x-ray. Your magnesium was slightly low this was replaced. Please return for new or worsening symptoms, increasing weakness, alterations in mental status, new chest pain or shortness of breath, vomiting, black or bloody stools or other new or concerning changes. Prescriptions: No Action allopurinol 300 mg tablet 300 mg PO DAILY Qty: 90 3RF pantoprazole 40 mg tablet,delayed release (DR/EC) 40 mg PO BID Qty: 180 3RF amlodipine 10 mg tablet 10 mg PO DAILY Qty: 90 3RF metformin 500 mg tablet 1,000 mg PO BID Qty: 360 3RF carvedilol 3.125 mg tablet 3.125 mg PO BID Qty: 180 3RF losartan 100 mg tablet 100 mg PO DAILY Qty: 90 3RF simvastatin 20 mg tablet 20 mg PO BEDTIME Qty: 90 3RF azithromycin 250 mg tablet See Rx Instructions PO .COMPLEX Qty: 6 0RF Patient Comments: on day 5 today. Rx Instructions: For 250 mg dose pack: take 500 mg today (day 1), then 250 mg for 4 days (days 2-5) PO memantine 5 mg tablet 5 mg PO BID Qty: 180 3RF mirtazapine 15 mg tablet 7.5 mg PO BEDTIME Qty: 45 3RF Hold Instructions: poss. sedation Rocklatan 0.02-0.005 % drops 1 drp ophthalmic (eye) QPM cholecalciferol (vitamin D3) 25 mcg (1,000 unit) capsule 25 mcg PO DAILY ketoconazole 2 % shampoo 1 applic topical 2XW PRN brimonidine-timolol [Combigan] 0.2-0.5 % drops 1 drp EYE-RIGHT BID Patient Comments: INSTILL 1 DROP IN THE RIGHT EYE EVERY 12 HOURS dorzolamide 2 % drops 1 drp EYE-LEFT BID Referrals: Joseph Crespo MD [Primary Care Provider] - Stand Alone Forms: Patient Portal/API
[2023-07-23] MEDS: MAGNESIUM SULFATE 2 GM/50 ML PIGGYBACK IV (13:50)
--- NOTE | 2023-07-23 15:08 | PC.NURSE ---
Pt oxygen drops to 88% when sleeping, placed on 2L O2, physician advised. Current O2 94% on 2L.
[2023-07-23 15:09] LABS: Bacteria Urine None Seen; Culture Indicated Urine Specimen Cultured; RBC Urine 1-5/HPF (0-5/HPF); Squamous Epithelial Cell Urine 1-5 /HPF (0-5/HPF); WBC Urine 1-5/HPF (0-5/HPF)
--- NOTE | 2023-07-23 16:06 | CM.SWNOTE ---
ED GENERAL SURGEON Note GENERAL SURGEON briefly meets with patient and spouse per consult from ED provider regarding support at home for patient. Patient is 87y/o male who presents to ED due to concern for covid symptoms and recent pneumonia. Patient has hx of Dementia and type 2 diabetes. GENERAL SURGEON enters room and speaks with patient's spouse. Patient and spouse reside in [facility] in [place]. It is reported that patient's spouse drives patient and cares for almost all ADLs. Patient's spouse states she is looking for an council on aging director caregiver that can stay with patient when she needs to step out of the house. Spouse endorses her capability in caring for patient and states that patient can ambulate independently but they plan to get patient a FWW. Spouse states she interviewed a caregiver last week and they wanted something more frequent than spouse is looking for. Spouse states that she is thinking about asking a neighbor if they are interested. GENERAL SURGEON provides patient's spouse with senior resource guide, list of private pay caregivers and DME resources. Plan: patient to d/c to home with spouse upon medical clearance, spouse to look into caregivers as needed, patient to f/u with PCP RADHA Vanessa
== END 2023-07-23 16:10 | disposition home or self-care (01) ==
PROVIDERS: Emergency Provider Emergency Medicine; Family Provider Internal Medicine; PCP Internal Medicine
DX: J18.9 Pneumonia, unspecified organism (principal); E83.42 Hypomagnesemia; R07.9 Chest pain, unspecified
CPT/HCPCS: 36415; 71045; 80053; 81003; 81015; 82550; 83605; 83690; 83735; 84145; 84484; 85025; 85610; 85730; 87040; 87086; 93005; 93010; 96365; 96366; 99284; 99285; J3475

== ENCOUNTER → 2023-09-16 11:32 | Outpatient (CLI) | payer MEDICARE, SELFPAY ==
[2023-09-16 13:18] LABS: Prostate Specific Antigen < 0.064 ng/mL (0.10-4.00)
== END ==
PROVIDERS: Family Provider Internal Medicine; PCP Internal Medicine; Referring Provider Urology; Visit Provider Urology
DX: Z85.46 Personal history of malignant neoplasm of prostate (principal)
CPT/HCPCS: 36415; 84153

== ENCOUNTER → 2023-10-30 13:25 | Outpatient (CLI) | payer MEDICARE, SELFPAY ==
[2023-10-30 16:59] LABS: Appearance Urine UA CLEAR; Bilirubin Urine UA NEGATIVE (NEGATIVE); Color Urine UA YELLOW; Glucose Urine UA NEGATIVE (Negative); Ketones Urine UA NEGATIVE (NEGATIVE); Leukocyte Esterase Urine UA NEGATIVE (NEGATIVE); Nitrite Urine UA NEGATIVE (Negative); Occult Blood Urine UA 3+ (Negative); Protein Urine UA NEGATIVE (Negative); Specific Gravity Urine UA 1.015 (1.000-1.035); Urobilinogen Urine UA 0.2 E.U./dL (0.2)
[2023-10-30 17:05] LABS: Bacteria Urine Occasional (0-1); Culture Indicated Urine Cult Not Indicated; Mucus Urine 1+ (Negative); RBC Urine 10-30/HPF (0-5/HPF); Squamous Epithelial Cell Urine 0-1 /HPF (0-5/HPF); Urine Volume 10mL (spun); WBC Urine 0-1/HPF (0-5/HPF)
== END ==
PROVIDERS: Family Provider Internal Medicine; PCP Internal Medicine; Referring Provider Urology; Visit Provider Urology
DX: R31.0 Gross hematuria (principal); N35.812 Other bulbous urethral stricture, male; R33.9 Retention of urine, unspecified
CPT/HCPCS: 81001

== ENCOUNTER 2023-10-31 09:20 | Emergency (ER) | payer MEDICARE, SELFPAY ==
[2023-10-31 09:39] VITALS: PULSE 74; O2SAT 96
[2023-10-31 09:40] VITALS: BP 145/79; PULSE 74; O2SAT 97
[2023-10-31 09:43] VITALS: BP 145/79; PULSE 65; RESP 16; TEMP 36.5; O2SAT 97; BMI 25.0
--- NOTE | 2023-10-31 09:55 | ED_ITS ---
HPI - General Adult General Chief complaint: Urogenital-Male Stated complaint: unable to stop urinating Time Seen by Provider: 10/31/23 09:41 Source: patient and family Mode of arrival: Ambulatory History of Present Illness HPI narrative: Patient is an 88-year-old male. Has had issues with enlarged prostate in the past. Has had surgeries for this. He still has his prostate. Is here for evaluation frequent urination. Is having some lower abdominal tenderness. Is also having diarrhea. He states that he was having some trouble emptying his bladder. No fevers. No chest pain. Related Data Home Medications Medication Instructions Recorded Confirmed brimonidine 0.2 %-timolol 0.5 % 1 drp EYE-RIGHT BID 06/03/21 09/24/23 eye drops (Combigan) cholecalciferol (vitamin D3) 25 25 mcg PO DAILY 11/07/21 09/24/23 mcg (1,000 unit) capsule netarsudil 0.02 %-latanoprost 1 drp ophthalmic (eye) QPM 11/07/21 09/24/23 0.005 % eye drops (Rocklatan) dorzolamide 2 % eye drops 1 drp EYE-LEFT BID 03/18/23 09/24/23 Previous Rx's Medication Instructions Recorded amlodipine 10 mg tablet 10 mg PO DAILY #90 tabs 10/22/22 losartan 100 mg tablet 100 mg PO DAILY #90 tabs 04/20/23 simvastatin 20 mg tablet 20 mg PO BEDTIME #90 tabs 04/24/23 memantine 5 mg tablet 5 mg PO BID #180 tabs 06/24/23 mirtazapine 15 mg tablet 7.5 mg (1/2 x 15 mg) PO BEDTIME 06/24/23 #45 tabs pantoprazole 40 mg tablet,delayed 40 mg PO BID #180 tabs 08/10/23 release allopurinol 300 mg tablet 300 mg PO DAILY #90 tabs 08/31/23 metformin 500 mg tablet 1,000 mg (2 x 500 mg) PO BID #360 10/07/23 tabs Allergies Allergy/AdvReac Type Severity Reaction Status Date / Time Sulfa (Sulfonamide Allergy Verified 09/24/23 11:33 Antibiotics) donepezil AdvReac Intermediate Diarrhea Verified 09/24/23 11:33 Review of Systems Constitutional Constitutional: Reports system reviewed and no additional complaints, except as documented Gastrointestinal Gastrointestinal: Reports system reviewed and no additional complaints, except as documented Genitourinary Genitourinary: Reports system reviewed and no additional complaints, except as documented Patient History Medical History History of radioisotope therapy Dementia Depression, major, recurrent Incomplete emptying of bladder Urethral stricture High blood pressure Hematuria Obstructive sleep apnea Overweight Personal history of malignant neoplasm of prostate Open angle with borderline findings, low risk, bilateral Trigeminal neuralgia Unspecified lack of coordination Chronic gout, unspecified, without tophus (tophi) Mixed hyperlipidemia Essential hypertension Polyneuropathy, unspecified Type 2 diabetes mellitus with diabetic neuropathy, unspecified Cerebral amyloid angiopathy Nontraumatic intracranial hemorrhage, unspecified Vitiligo Actinic keratosis Pneumonia Pneumothorax Stroke Gout Mumps Measles Chicken pox Vertigo Hearing loss Cataracts, bilateral Hemorrhoid GERD (gastroesophageal reflux disease) Skin cancer Prostate cancer Type 2 diabetes mellitus Surgical History History of prostate biopsy Anesthesia History of eye surgery History of cataract removal with insertion of prosthetic lens (~1999) History of tonsillectomy (~194) H/O blepharoplasty Family History Father History of heart disease Mother Stroke Brother Cancer Hypertension Hearing impairment Sister Cancer Stroke Hypertension Social History marital status: number of children: 2 household members: spouse Smoking Status: Former smoker alcohol intake: current Type(s) of exercise: other frequency: 1-2 times per week Smoking Status: Former smoker alcohol intake frequency: a few times a week Alcohol type: wine Substance Use Type: does not use Exam Initial Vital Signs Initial Vital Signs: Vital Signs Pulse Rate 74 10/31/23 09:39 Pulse Oximetry 96 10/31/23 09:39 Const General: cooperative and comfortable HENMT Head: normal to inspection and normocephalic GI Inspection: normal to inspection and distended (Suprapubic area/lower abdomen) Palpation: tender (Suprapubic region) Skin General: no rashes or lesions noted Neuro General: patient alert and patient awake Course Orders Ordered: ED Orders 10/31/23 09:48 EKG-12 Lead Stat 04/20/24 10:15 Urine Microscopic Stat Discontinued Medications Lidocaine HCl (Lidocaine 2% (Glydo) 6 Ml Gel) 6 ml TOP NOW ONE Stop: 10/31/23 09:54 Vital Signs Vital signs: Vital Signs - 8 hr 10/31/23 09:39 10/31/23 09:40 10/31/23 09:40 Temperature Pulse Rate 74 74 Respiratory Rate Blood Pressure 145/79 H Pulse Oximetry 96 97 Oxygen Delivery Method Room Air 10/31/23 09:43 10/31/23 10:00 Temperature 97.7 F Pulse Rate 65 69 Respiratory Rate 16 Blood Pressure 145/79 H Pulse Oximetry 97 97 Oxygen Delivery Method Room Air Medical Decision Making Lab Data Labs: Urine Dip Bedside Urine Glucose Negative Bedside Urine Bilirubin - Negative Bedside Urine Ketone - Negative Urine Specific [place] 1.010 Bedside Urine Occult Blood +++ Bedside Urine pH 7.5 Bedside Urine Protein - Negative Bedside Urine Urobilinogen - Negative Bedside Urine Nitrite - Negative Bedside Urine Leukocytes - Negative Esterase Point of care testing: Urine Dip Bedside Urine Glucose Negative Bedside Urine Bilirubin - Negative Bedside Urine Ketone - Negative Urine Specific [place] 1.010 Bedside Urine Occult Blood +++ Bedside Urine pH 7.5 Bedside Urine Protein - Negative Bedside Urine Urobilinogen - Negative Bedside Urine Nitrite - Negative Bedside Urine Leukocytes - Negative Esterase ECG Data Attestation: I personally reviewed and interpreted this ECG as follows: Interpretation: Sinus rhythm Ventricular rate 85 Normal axis Frequent PVCs MDM Narrative Medical decision making narrative: EKG was ordered because the patient had an irregular heart rhythm and triage. I t shows sinus rhythm with frequent PVCs. Patient is retaining urine. A Nguyễn catheter was placed with greater than 1 L of urine return. Has hematuria but no other signs of infection. I suspect this is related to his prostate. Will discharge home with a Nguyễn catheter in place. He does have urologist that he can follow-up with. They were given return precautions. They expressed understanding and agreement. Discharge Plan Departure Patient Disposition: Home Clinical Impression: Acute urinary retention Instructions: How to Care for Your Nguyễn Catheter -- Male, DI for Urinary Retention in Men Activity Restrictions/Additional Instructions: Elder can continue to take all of his medications as directed. I recommend that on Thursday you contact the urology office for a follow-up next week. Return to the emergency department for new or worsening symptoms. Prescriptions: No Action amlodipine 10 mg tablet 10 mg PO DAILY Qty: 90 3RF losartan 100 mg tablet 100 mg PO DAILY Qty: 90 3RF simvastatin 20 mg tablet 20 mg PO BEDTIME Qty: 90 3RF pantoprazole 40 mg tablet,delayed release (DR/EC) 40 mg PO BID Qty: 180 3RF allopurinol 300 mg tablet 300 mg PO DAILY Qty: 90 3RF metformin 500 mg tablet 1,000 mg PO BID Qty: 360 3RF memantine 5 mg tablet 5 mg PO BID Qty: 180 3RF mirtazapine 15 mg tablet 7.5 mg PO BEDTIME Qty: 45 3RF Hold Instructions: poss. sedation Rocklatan 0.02-0.005 % drops 1 drp ophthalmic (eye) QPM cholecalciferol (vitamin D3) 25 mcg (1,000 unit) capsule 25 mcg PO DAILY brimonidine-timolol [Combigan] 0.2-0.5 % drops 1 drp EYE-RIGHT BID Patient Comments: INSTILL 1 DROP IN THE RIGHT EYE EVERY 12 HOURS dorzolamide 2 % drops 1 drp EYE-LEFT BID Referrals: Joseph Crespo MD [Primary Care Provider] - Jeet Abel MD [Physician] - Stand Alone Forms: Patient Portal/API
[2023-10-31 10:00] VITALS: PULSE 69; O2SAT 97
[2023-10-31] MEDS: LIDOCAINE 2% (GLYDO) 6 ML GEL TOP (10:15)
--- NOTE | 2023-10-31 10:24 | PC.NURSE ---
reports patient has alzheimers, patient is alert to self. Pt reports pressure in his abdomen. reports patient has been urinating constantly the past day. Bladder scan reads >999. Catheter inserted and draining urine, patient tolerated procedure.
[2023-10-31 10:30] VITALS: PULSE 85; RESP 17; O2SAT 94
[2023-10-31 10:36] LABS: Bacteria Urine None Seen; Culture Indicated Urine Cult Not Indicated; RBC Urine 5-10/HPF (0-5/HPF); Squamous Epithelial Cell Urine None Seen (0-5/HPF); Urine Volume 10mL (spun); WBC Urine 0-1/HPF (0-5/HPF)
[2023-10-31 11:00] VITALS: BP 128/58; PULSE 78; RESP 13; O2SAT 95
== END 2023-10-31 11:03 | disposition home or self-care (01) ==
PROVIDERS: Emergency Provider Emergency Medicine; Family Provider Internal Medicine; PCP Internal Medicine
DX: R35.0 Frequency of micturition (principal); R33.9 Retention of urine, unspecified; R31.9 Hematuria, unspecified; I49.3 Ventricular premature depolarization
CPT/HCPCS: 51702; 51798; 81003; 81015; 93005; 99283

== ENCOUNTER 2023-11-14 18:05 | Emergency (ER) | payer MEDICARE, SELFPAY ==
[2023-11-14 18:28] VITALS: BP 138/64; PULSE 72; RESP 16; TEMP 36.9; O2SAT 97; BMI 24.8
[2023-11-14 19:54] LABS: RBC Urine >100/HPF (0-5/HPF); Urine Volume 10mL (spun)
[2023-11-14 19:55] LABS: Bacteria Urine Few (2-10); Squamous Epithelial Cell Urine None Seen (0-5/HPF); WBC Urine 1-5/HPF (0-5/HPF)
[2023-11-14 19:56] LABS: Culture Indicated Urine Specimen Cultured
--- NOTE | 2023-11-14 20:01 | ED_ITS ---
HPI - General Adult General Chief complaint: Urogenital-Male Stated complaint: Blood in urine, wearing catheter Time Seen by Provider: 11/14/23 18:14 Source: patient and family Mode of arrival: Wheelchair History of Present Illness HPI narrative: This is an 88-year-old male. Has a urinary catheter in place secondary to urinary retention and overflow incontinence. He is scheduled to see Urology next week. He is here because of blood in the urine. He states that he does feel like that the catheter is draining his bladder. Denies any fevers. Does have some irritation around the tip of his penis. He was told by the urology office that if he has any blood in the urine that he should come to the emergency department for evaluation. Related Data Home Medications Medication Instructions Recorded Confirmed brimonidine 0.2 %-timolol 0.5 % 1 drp EYE-RIGHT BID 06/03/21 11/05/23 eye drops (Combigan) cholecalciferol (vitamin D3) 25 25 mcg PO DAILY 11/07/21 11/05/23 mcg (1,000 unit) capsule dorzolamide 2 % eye drops 1 drp EYE-LEFT BID 03/18/23 11/05/23 latanoprost 0.005 % eye drops drp EYE-BOTH 11/05/23 11/05/23 Previous Rx's Medication Instructions Recorded amlodipine 10 mg tablet 10 mg PO DAILY #90 tabs 10/22/22 losartan 100 mg tablet 100 mg PO DAILY #90 tabs 04/20/23 simvastatin 20 mg tablet 20 mg PO BEDTIME #90 tabs 04/24/23 memantine 5 mg tablet 5 mg PO BID #180 tabs 06/24/23 mirtazapine 15 mg tablet 7.5 mg (1/2 x 15 mg) PO BEDTIME 06/24/23 #45 tabs pantoprazole 40 mg tablet,delayed 40 mg PO BID #180 tabs 08/10/23 release allopurinol 300 mg tablet 300 mg PO DAILY #90 tabs 08/31/23 metformin 500 mg tablet 1,000 mg (2 x 500 mg) PO BID #360 10/07/23 tabs Nguyễn catheter leg bag #1 ea 11/05/23 Allergies Allergy/AdvReac Type Severity Reaction Status Date / Time Sulfa (Sulfonamide Allergy Verified 11/14/23 18:37 Antibiotics) donepezil AdvReac Intermediate Diarrhea Verified 11/14/23 18:37 Review of Systems Gastrointestinal Gastrointestinal: Reports system reviewed and no additional complaints, except as documented Genitourinary Genitourinary: Reports system reviewed and no additional complaints, except as documented Hematologic/Lymphatic On Anticoagulants: No Patient History Medical History Slow transit constipation History of radioisotope therapy Dementia Depression, major, recurrent Incomplete emptying of bladder Urethral stricture High blood pressure Hematuria Obstructive sleep apnea Overweight Personal history of malignant neoplasm of prostate Open angle with borderline findings, low risk, bilateral Trigeminal neuralgia Unspecified lack of coordination Chronic gout, unspecified, without tophus (tophi) Mixed hyperlipidemia Essential hypertension Polyneuropathy, unspecified Type 2 diabetes mellitus with diabetic neuropathy, unspecified Cerebral amyloid angiopathy Nontraumatic intracranial hemorrhage, unspecified Vitiligo Actinic keratosis Pneumonia Pneumothorax Stroke Gout Mumps Measles Chicken pox Vertigo Hearing loss Cataracts, bilateral Hemorrhoid GERD (gastroesophageal reflux disease) Skin cancer Prostate cancer Type 2 diabetes mellitus Surgical History History of prostate biopsy Anesthesia History of eye surgery History of cataract removal with insertion of prosthetic lens (~1999) History of tonsillectomy (~1947) H/O blepharoplasty Family History Father History of heart disease Mother Stroke Brother Cancer Hypertension Hearing impairment Sister Cancer Stroke Hypertension Social History marital status: number of children: 2 household members: spouse Smoking Status: Former smoker alcohol intake: current Type(s) of exercise: other frequency: 1-2 times per week Smoking Status: Former smoker alcohol intake frequency: a few times a week Alcohol type: wine Substance Use Type: does not use Exam Initial Vital Signs Initial Vital Signs: Vital Signs Temperature 98.4 F 11/14/23 18:28 Pulse Rate 72 11/14/23 18:28 Respiratory Rate 16 11/14/23 18:28 Blood Pressure 138/64 11/14/23 18:28 Pulse Oximetry 97 11/14/23 18:28 Oxygen Delivery Method Room Air 11/14/23 18:28 GI Inspection: normal to inspection and non-distended Palpation: soft External: normal external exam Penis: normal penis Meatus: meatus normal Skin General: no rashes or lesions noted Course Orders Ordered: ED Orders 11/14/23 19:08 Urine Culture Stat Urine Microscopic Stat Vital Signs Vital signs: Vital Signs - 8 hr 11/14/23 18:28 11/14/23 21:18 Temperature 98.4 F Pulse Rate 72 85 Respiratory Rate 16 18 Blood Pressure 138/64 135/69 Pulse Oximetry 97 94 Oxygen Delivery Method Room Air Room Air Medical Decision Making Lab Data Lab results reviewed: Yes I reviewed the patient's lab results. Labs: Lab Results 11/14/23 Range/Units 19:08 Urine RBC >100/hpf H (0-5/HPF) Urine WBC 1-5/hpf (0-5/HPF) Ur Squamous Epith Cells None seen (0-5/HPF) Urine Bacteria Few (2-10) H (None) Ur Culture Indicated? Specimen cultured Vol Urine Centrifuged 10ml (spun) Urine Dip Bedside Urine Glucose Negative Bedside Urine Bilirubin - Negative Bedside Urine Ketone - Negative Urine Specific [place] 1.020 Bedside Urine Occult Blood +++ Bedside Urine pH 5.5 Bedside Urine Protein ++ 100 Bedside Urine Urobilinogen - Negative Bedside Urine Nitrite - Negative Bedside Urine Leukocytes + 70 Esterase Point of care testing: Urine Dip Bedside Urine Glucose Negative Bedside Urine Bilirubin - Negative Bedside Urine Ketone - Negative Urine Specific [place] 1.020 Bedside Urine Occult Blood +++ Bedside Urine pH 5.5 Bedside Urine Protein ++ 100 Bedside Urine Urobilinogen - Negative Bedside Urine Nitrite - Negative Bedside Urine Leukocytes + 70 Esterase MDM Narrative Medical decision making narrative: His Nguyễn catheter is draining although it is blood-tinged. We did flush the Nguyễn catheter. No fevers. Urinalysis not consistent infection. Suspect that the blood is from irritation. Will discharge home with instructions to keep his scheduled appointment next week with Urology. He was given return precautions. He expressed understanding and agreement. Discharge Plan Departure Patient Disposition: Home Clinical Impression: Hematuria, Complication of Nguyễn catheter Instructions: How to Care for Your Nguyễn Catheter -- Male Activity Restrictions/Additional Instructions: Continue to take all of your medications as directed. Keep all of your scheduled medical appointments specifically with the urologist next week. Return to the emergency department for new or worsening symptoms. Prescriptions: No Action amlodipine 10 mg tablet 10 mg PO DAILY Qty: 90 3RF losartan 100 mg tablet 100 mg PO DAILY Qty: 90 3RF simvastatin 20 mg tablet 20 mg PO BEDTIME Qty: 90 3RF pantoprazole 40 mg tablet,delayed release (DR/EC) 40 mg PO BID Qty: 180 3RF allopurinol 300 mg tablet 300 mg PO DAILY Qty: 90 3RF metformin 500 mg tablet 1,000 mg PO BID Qty: 360 3RF memantine 5 mg tablet 5 mg PO BID Qty: 180 3RF mirtazapine 15 mg tablet 7.5 mg PO BEDTIME Qty: 45 3RF Hold Instructions: poss. sedation cholecalciferol (vitamin D3) 25 mcg (1,000 unit) capsule 25 mcg PO DAILY latanoprost 0.005 % drops EYE-BOTH (DME) Nguyễn catheter leg bag See Rx Instructions .Route .MEDSUPPLY Qty: 1 0RF Rx Instructions: As directed brimonidine-timolol [Combigan] 0.2-0.5 % drops 1 drp EYE-RIGHT BID Patient Comments: INSTILL 1 DROP IN THE RIGHT EYE EVERY 12 HOURS dorzolamide 2 % drops 1 drp EYE-LEFT BID Referrals: Joseph Crespo MD [Primary Care Provider] - Stand Alone Forms: Patient Portal/API
--- NOTE | 2023-11-14 20:21 | PC.NURSE ---
Flushed mckeon without difficulty, return of sterile water without visible clots.
[2023-11-14 21:18] VITALS: BP 135/69; PULSE 85; RESP 18; O2SAT 94
== END 2023-11-14 21:27 | disposition home or self-care (01) ==
PROVIDERS: Emergency Provider Emergency Medicine; Family Provider Internal Medicine; PCP Internal Medicine
DX: R31.9 Hematuria, unspecified (principal); T83.9XXA Unspecified complication of genitourinary prosthetic device, implant and graft, initial encounter
CPT/HCPCS: 81003; 81015; 87086; 99282

== ENCOUNTER → 2023-11-17 14:26 | Outpatient (CLI) | payer MEDICARE, SELFPAY | PROVIDERS: Family Provider Internal Medicine; PCP Internal Medicine; Visit Provider Urology | DX: R39.9 Unspecified symptoms and signs involving the genitourinary system (principal) | CPT/HCPCS: 87086 ==

== ENCOUNTER → 2023-11-26 10:20 | Outpatient (CLI) | payer MEDICARE, SELFPAY | PROVIDERS: Family Provider Internal Medicine; PCP Internal Medicine; Visit Provider Urology | DX: R31.9 Hematuria, unspecified (principal); R33.9 Retention of urine, unspecified | CPT/HCPCS: 87086 ==

== ENCOUNTER → 2023-12-01 16:08 | Outpatient (CLI) | payer MEDICARE, SELFPAY ==
[2023-12-01 17:43] LABS: Hemoglobin A1C% w Est Avg Glu 6.2 % (4.0-6.0)
[2023-12-01 17:58] LABS: BUN Creatinine Ratio 20.7 (6-22); Blood Urea Nitrogen 23 mg/dL (9-20); Calcium 9.3 mg/dL (8.4-10.2); Carbon Dioxide 26 mmol/L (22-32); Chloride 107 mmol/L (98-107); Estimated Glomerular Filt Rate > 60 mL/min (>60); Glucose 105 mg/dL (80-110); HEMOLYSIS < 15 (0-50); Potassium 4.9 mmol/L (3.4-5.1); Sodium 142 mmol/L (137-145)
== END ==
LOC: LAB 16:09
PROVIDERS: Family Provider Internal Medicine; PCP Internal Medicine; Referring Provider Internal Medicine; Visit Provider Internal Medicine
DX: E11.40 Type 2 diabetes mellitus with diabetic neuropathy, unspecified (principal)
CPT/HCPCS: 36415; 80048; 83036

== ENCOUNTER 2024-01-16 17:30 | Emergency (ER) | payer MEDICARE, SELFPAY ==
[2024-01-16] VITALS (10 sets, daily range): BP systolic 115–142; BP diastolic 61–85; PULSE 63–73; RESP 13–18; TEMP 37.1; O2SAT 94–97
[2024-01-16 19:02] LABS: Urine Volume Low Vol <10mL (spun)
[2024-01-16 19:07] LABS: Bacteria Urine Occasional (0-1); Culture Indicated Urine Cult Not Indicated; RBC Urine 30-100/HPF (0-5/HPF); Squamous Epithelial Cell Urine None Seen (0-5/HPF); WBC Urine 0-1/HPF (0-5/HPF)
--- NOTE | 2024-01-16 19:40 | PC.NURSE ---
Spouse states that pt is filling brief up to 25 lbs in weight
[2024-01-16 19:42] LABS: Add Manual Diff / Slide Review NO; Basophils Absolute Auto 0 /uL (0-100); Basophils Percent Auto 0.7 % (0-2); Eosinophils Absolute Auto 200 /uL (0-450); Eosinophils Percent Auto 2.9 % (2-4); Hematocrit 32.9 % (41-53); Hemoglobin 11.2 g/dL (13.5-17.5); Lymphocytes Absolute Auto 1500 /uL (1100-4500); Mean Corpuscular HGB Conc 34.1 % (30-36); Mean Corpuscular Hemoglobin 35.7 PG (26-34); Mean Corpuscular Volume 104.8 fL (80-100); Monocytes Absolute Auto 700 /uL (0-900); Monocytes Percent Auto 10.4 % (3-14); Neutrophils Absolute Auto 4300 /uL (1500-7000); Platelet Count 256 X10^3/uL (150-400); Red Blood Cell Count 3.14 X10^6/uL (4.5-5.9); Red Cell Distribution Width 15.7 % (11.6-14.8); White Blood Cell Count 6.8 X10^3/uL (4.5-11.0)
[2024-01-16 19:52] LABS: Alanine Aminotransferase 13 IU/L (<50); Albumin 4.2 g/dL (3.5-5.0); Albumin Globulin Ratio 1.4 (1.0-2.8); Alkaline Phosphatase 62 U/L (38-126); Aspartate Aminotransferase 26 IU/L (17-59); BUN Creatinine Ratio 22.7 (6-22); Bilirubin Total 0.6 mg/dL (0.2-1.3); Blood Urea Nitrogen 20 mg/dL (9-20); Calcium 9.1 mg/dL (8.4-10.2); Carbon Dioxide 27 mmol/L (22-32); Chloride 108 mmol/L (98-107); Estimated Glomerular Filt Rate > 60 mL/min (>60); Globulin 2.9 g/dL (1.7-4.1); Glucose 124 mg/dL (80-110); HEMOLYSIS < 15 (0-50); Lipase 84 U/L (23-300); Potassium 3.8 mmol/L (3.4-5.1); Sodium 140 mmol/L (137-145); Total Protein 7.1 g/dL (6.3-8.2)
[2024-01-16 20:43] LABS: Prostate Specific Antigen < 0.064 ng/mL (0.10-4.00)
--- NOTE | 2024-01-16 21:34 | ED_ITS ---
HPI - Male Genitourinary General Chief complaint: Urogenital-Male Stated complaint: incontinence, 12hr, diarrhea Time Seen by Provider: 01/16/24 21:32 Source: patient and family Mode of arrival: Wheelchair History of Present Illness HPI Narrative: 88-year-old male with history of remote prostate cancer diagnosis, treated with seeds 10 years ago, followed by local urologist Dr. Abel, has had problems with urinary incontinence, also blood in the urine, unclear cause, due to see Dr. Cummings this , had about 3 weeks' duration Nguyễn catheter that was removed a proximally 4 weeks ago per . Recent days having incontinence of urine, not grossly bloody. No fevers or chills. No flank pain. No nausea or vomiting. He denies diarrhea or loose stools. No injury or trauma. No back pain symptoms, no injuries recalled. He does not self catheterization, does not catheterize for him. Related Data Home Medications Medication Instructions Recorded Confirmed brimonidine 0.2 %-timolol 0.5 % 1 drp EYE-RIGHT BID 06/03/21 12/23/23 eye drops (Combigan) cholecalciferol (vitamin D3) 25 25 mcg PO DAILY 11/07/21 12/23/23 mcg (1,000 unit) capsule dorzolamide 2 % eye drops 1 drp EYE-LEFT BID 03/18/23 12/23/23 latanoprost 0.005 % eye drops drp EYE-BOTH 11/05/23 12/23/23 Previous Rx's Medication Instructions Recorded losartan 100 mg tablet 100 mg PO DAILY #90 tabs 04/20/23 simvastatin 20 mg tablet 20 mg PO BEDTIME #90 tabs 04/24/23 memantine 5 mg tablet 5 mg PO BID #180 tabs 06/24/23 mirtazapine 15 mg tablet 7.5 mg (1/2 x 15 mg) PO BEDTIME 06/24/23 #45 tabs pantoprazole 40 mg tablet,delayed 40 mg PO BID #180 tabs 08/10/23 release allopurinol 300 mg tablet 300 mg PO DAILY #90 tabs 08/31/23 metformin 500 mg tablet 1,000 mg (2 x 500 mg) PO BID #360 10/07/23 tabs tamsulosin 0.4 mg capsule 0.4 mg PO BEDTIME #30 caps 12/04/23 amlodipine 10 mg tablet 10 mg PO DAILY #90 tabs 12/17/23 Allergies Allergy/AdvReac Type Severity Reaction Status Date / Time Sulfa (Sulfonamide Allergy Verified 01/16/24 18:10 Antibiotics) donepezil AdvReac Intermediate Diarrhea Verified 01/16/24 18:10 Review of Systems Review of Systems Narrative: For HPI Patient History Medical History Slow transit constipation History of radioisotope therapy Dementia Depression, major, recurrent Incomplete emptying of bladder Urethral stricture High blood pressure Hematuria Obstructive sleep apnea Overweight Personal history of malignant neoplasm of prostate Open angle with borderline findings, low risk, bilateral Trigeminal neuralgia Unspecified lack of coordination Chronic gout, unspecified, without tophus (tophi) Mixed hyperlipidemia Essential hypertension Polyneuropathy, unspecified Type 2 diabetes mellitus with diabetic neuropathy, unspecified Cerebral amyloid angiopathy Nontraumatic intracranial hemorrhage, unspecified Vitiligo Actinic keratosis Pneumonia Pneumothorax Stroke Gout Mumps Measles Chicken pox Vertigo Hearing loss Cataracts, bilateral Hemorrhoid GERD (gastroesophageal reflux disease) Skin cancer Prostate cancer Type 2 diabetes mellitus Surgical History History of prostate biopsy Anesthesia History of eye surgery History of cataract removal with insertion of prosthetic lens (~1999) History of tonsillectomy (~1947) H/O blepharoplasty Family History Father History of heart disease Mother Stroke Brother Cancer Hypertension Hearing impairment Sister Cancer Stroke Hypertension Social History marital status: number of children: 2 household members: spouse Smoking Status: Former smoker alcohol intake: current Type(s) of exercise: other frequency: 1-2 times per week Smoking Status: Former smoker alcohol intake frequency: a few times a week Alcohol type: wine Substance Use Type: does not use Exam Narrative Exam Narrative: GENERAL: Well-developed patient, in mild distress. HEAD: Atraumatic. Normocephalic. EYES: Pupils equal round and reactive. Extraocular motions intact. No scleral icterus. No injection or drainage. ENT: Nose without bleeding, purulent drainage. Throat without erythema, tonsillar hypertrophy or exudate. Airway patent. NECK: Trachea midline. Non tender CARDIOVASCULAR: Regular rate and rhythm without murmurs, gallops, or rubs. RESPIRATORY: Clear to auscultation. Breath sounds equal bilaterally. No wheezes, rales, or rhonchi. GASTROINTESTINAL: Abdomen soft, non-tender, nondistended. EXTREMITIES: No edema or joint tenderness. BACK: Nontender without deformity or crepitance. No flank tenderness. NEURO: AOx3. SKIN: No rash or erythema of visible areas Initial Vital Signs Initial Vital Signs: Vital Signs Temperature 98.7 F 01/16/24 18:08 Pulse Rate 73 01/16/24 18:08 Respiratory Rate 17 01/16/24 18:08 Blood Pressure 142/65 H 01/16/24 18:08 Pulse Oximetry 96 01/16/24 18:08 Oxygen Delivery Method Room Air 01/16/24 18:08 Course Orders Ordered: Discontinued Medications Ondansetron HCl (Ondansetron 4 Mg/2 Ml Inj) 4 mg IV NOW PRN PRN Reason: Nausea And Vomiting Ondansetron HCl (Ondansetron 4 Mg Odt) 4 mg PO NOW PRN PRN Reason: Nausea And Vomiting Vital Signs Vital signs: Vital Signs - 8 hr 01/16/24 18:08 01/16/24 19:21 01/16/24 19:23 Temperature 98.7 F Pulse Rate 73 67 63 Respiratory Rate 17 Blood Pressure 142/65 H Pulse Oximetry 96 97 97 Oxygen Delivery Method Room Air 01/16/24 19:23 01/16/24 19:30 01/16/24 19:30 Temperature Pulse Rate 72 Respiratory Rate 18 Blood Pressure 126/85 139/63 Pulse Oximetry 97 Oxygen Delivery Method 01/16/24 20:00 01/16/24 20:01 01/16/24 20:01 Temperature Pulse Rate 66 68 Respiratory Rate 16 14 Blood Pressure 127/61 Pulse Oximetry 94 96 Oxygen Delivery Method 01/16/24 20:30 01/16/24 20:30 01/16/24 21:00 Temperature Pulse Rate 67 71 Respiratory Rate 14 14 Blood Pressure 115/81 Pulse Oximetry 96 94 Oxygen Delivery Method 01/16/24 21:00 01/16/24 21:30 01/16/24 21:30 Temperature Pulse Rate 67 Respiratory Rate 13 Blood Pressure 131/62 131/65 Pulse Oximetry 94 Oxygen Delivery Method 01/16/24 22:00 01/16/24 22:00 Temperature Pulse Rate 66 Respiratory Rate 13 Blood Pressure 136/65 Pulse Oximetry 96 Oxygen Delivery Method MDM - Male Genitourinary Lab Data 01/16/24 19:25 01/16/24 19:25 Labs: Lab Results 01/16/24 01/16/24 01/16/24 Range/Units 18:56 19:25 19:27 WBC 6.8 (4.5-11.0) X10^3/uL RBC 3.14 L (4.5-5.9) X10^6/uL Hgb 11.2 L (13.5-17.5) g/dL Hct 32.9 L (41-53) % MCV 104.8 H (80-100) fL MCH 35.7 H (26-34) PG MCHC 34.1 (30-36) % RDW 15.7 H (11.6-14.8) % Plt Count 256 (150-400) X10^3/uL Neut % (Auto) 64.0 (50-75) % Lymph % (Auto) 22.0 L (25-40) % [place] % (Auto) 10.4 (3-14) % Eos % (Auto) 2.9 (2-4) % Baso % (Auto) 0.7 (0-2) % Neut # (Auto) 4300 (9813-6646) /uL Lymph # (Auto) 1500 (7980-0226) /uL [place] # (Auto) 700 (0-900) /uL Eos # (Auto) 200 (0-450) /uL Baso # (Auto) 0 (0-100) /uL Sodium 140 (137-145) mmol/L Potassium 3.8 (3.4-5.1) mmol/L Chloride 108 H (98-107) mmol/L Carbon Dioxide 27 (22-32) mmol/L BUN 20 (9-20) mg/dL Creatinine 0.88 (0.66-1.25) mg/dL Estimated GFR > 60 (>60) mL/min BUN/Creatinine Ratio 22.7 H (6-22) Glucose 124 H (80-110) mg/dL Calcium 9.1 (8.4-10.2) mg/dL Total Bilirubin 0.6 (0.2-1.3) mg/dL AST 26 (17-59) IU/L ALT 13 (<50) IU/L Alkaline Phosphatase 62 (38-126) U/L Total Protein 7.1 (6.3-8.2) g/dL Albumin 4.2 (3.5-5.0) g/dL Globulin 2.9 (1.7-4.1) g/dL Albumin/Globulin Ratio 1.4 (1.0-2.8) Lipase 84 (23-300) U/L Prostate Specific Ag < 0.064 L (0.10-4.00) ng/mL Urine RBC 30-100/hpf H (0-5/HPF) Urine WBC 0-1/hpf (0-5/HPF) Ur Squamous Epith Cells None seen (0-5/HPF) Urine Bacteria Occasional (0-1) (None) Ur Culture Indicated? Cult not indicated Vol Urine Centrifuged Low vol <10ml (spun) A Urine Dip Bedside Urine Glucose Negative Bedside Urine Bilirubin - Negative Bedside Urine Ketone - Negative Urine Specific [place] 1.010 Bedside Urine Occult Blood +++ Bedside Urine pH 8.0 Bedside Urine Protein +/- 15 Bedside Urine Urobilinogen - Negative Bedside Urine Nitrite - Negative Bedside Urine Leukocytes - Negative Esterase MDM Narrative Medical decision making narrative: 88-year-old male with history of prostate cancer, catheter in place for urinary retention/incontinence problems 3 weeks' duration removed about 1 month ago per , now recent days of urinary incontinence, no gross hematuria symptoms, believes he has had blood in his urine before, of unclear significance. No fevers. Afebrile on triage, sirs screen negative. Abdomen benign. Renal function normal on lab testing, no elevated white blood cell count. Urinalysis with some microhematuria, no obvious bacteria, urine culture nonetheless requested. We will hold on antibiotics for now, no fever, if hematuria might be a chronic problem per . Bladder scan 400 cc estimated PVR. Nguyễn catheter placed, discharged with Nguyễn catheter. Follow up with Urology Dr. Abel clinic this as scheduled. Home with , return precautions discussed Discharge Plan Departure Patient Disposition: Home Clinical Impression: Urinary incontinence, Microhematuria, Urinary retention Activity Restrictions/Additional Instructions: 88-year-old male with history of prostate cancer remote seed therapy, followed by local urologist Dr. Abel, urinary incontinence and recent Nguyễn catheter use for a proximally 3 weeks, was removed about a month ago. Now recent days of having urinary dribbling again. No fever on triage. No flank pain. No tenderness on abdominal exam. Urinalysis showed microhematuria but no bacteria, urine culture was requested. You thought that there had been blood in the urine in the past, of unclear significance, we will hold on antibiotics for now. Bladder scan showed 400 cc volume after requests for urination, urinary retention diagnosis. Nguyễn catheter placed again now, continue in place until follow up with your urologist Dr. Able this as planned. Return earlier to this/nearest emergency department for any change worsening symptoms or any concerns prior Prescriptions: No Action losartan 100 mg tablet 100 mg PO DAILY Qty: 90 3RF simvastatin 20 mg tablet 20 mg PO BEDTIME Qty: 90 3RF pantoprazole 40 mg tablet,delayed release (DR/EC) 40 mg PO BID Qty: 180 3RF allopurinol 300 mg tablet 300 mg PO DAILY Qty: 90 3RF metformin 500 mg tablet 1,000 mg PO BID Qty: 360 3RF amlodipine 10 mg tablet 10 mg PO DAILY Qty: 90 3RF memantine 5 mg tablet 5 mg PO BID Qty: 180 3RF mirtazapine 15 mg tablet 7.5 mg PO BEDTIME Qty: 45 3RF Hold Instructions: poss. sedation cholecalciferol (vitamin D3) 25 mcg (1,000 unit) capsule 25 mcg PO DAILY latanoprost 0.005 % drops EYE-BOTH brimonidine-timolol [Combigan] 0.2-0.5 % drops 1 drp EYE-RIGHT BID Patient Comments: INSTILL 1 DROP IN THE RIGHT EYE EVERY 12 HOURS dorzolamide 2 % drops 1 drp EYE-LEFT BID tamsulosin 0.4 mg capsule 0.4 mg PO BEDTIME Qty: 30 12RF Referrals: Joseph Crespo MD [Primary Care Provider] - Jeet Abel MD [Physician] - Stand Alone Forms: Patient Portal/API
--- NOTE | 2024-01-16 21:59 | PC.NURSE ---
Assisted pt with cleaning BM and placing new large brief after mckeon insertion. Disposable pants placed. assisted by CELIA Shah
== END 2024-01-16 22:07 | disposition home or self-care (01) ==
PROVIDERS: Emergency Provider Emergency Medicine; Family Provider Internal Medicine; PCP Internal Medicine
DX: R32 Unspecified urinary incontinence (principal); R31.9 Hematuria, unspecified; R33.8 Other retention of urine
CPT/HCPCS: 36415; 51798; 80053; 81003; 81015; 83690; 84153; 85025; 87086; 99283; 99284

== ENCOUNTER → 2024-01-21 11:57 | Outpatient (CLI) | payer MEDICARE, SELFPAY | PROVIDERS: Family Provider Internal Medicine; PCP Internal Medicine; Visit Provider Urology | DX: R33.9 Retention of urine, unspecified (principal) | CPT/HCPCS: 87086 ==

== ENCOUNTER → 2024-02-01 15:12 | Outpatient (CLI) | payer MEDICARE, SELFPAY | PROVIDERS: Family Provider Internal Medicine; PCP Internal Medicine; Visit Provider Urology | DX: R33.9 Retention of urine, unspecified (principal) | CPT/HCPCS: 87077; 87086; 87186 ==

== ENCOUNTER → 2024-02-02 14:40 | Outpatient (CLI) | payer MEDICARE, SELFPAY | PROVIDERS: Family Provider Internal Medicine; PCP Internal Medicine; Visit Provider Urology | DX: R33.9 Retention of urine, unspecified (principal) | CPT/HCPCS: 87077; 87086 ==

== ENCOUNTER → 2024-02-09 11:26 | Outpatient (CLI) | payer MEDICARE, SELFPAY | PROVIDERS: Family Provider Internal Medicine; PCP Internal Medicine; Visit Provider Urology | DX: R33.9 Retention of urine, unspecified (principal); R31.9 Hematuria, unspecified | CPT/HCPCS: 87086 ==

== ENCOUNTER → 2024-02-26 15:58 | Outpatient (CLI) | payer MEDICARE, SELFPAY ==
[2024-02-26 16:24] LABS: Bilirubin Urine UA NEGATIVE (NEGATIVE); Glucose Urine UA NEGATIVE (Negative); Ketones Urine UA NEGATIVE (NEGATIVE); Leukocyte Esterase Urine UA 3+ (NEGATIVE); Nitrite Urine UA NEGATIVE (Negative); Occult Blood Urine UA 3+ (Negative); Protein Urine UA 2+ (Negative); Specific Gravity Urine UA 1.015 (1.000-1.035); pH Urine UA 7.5 (4.5-8.0)
[2024-02-26 16:28] LABS: Appearance Urine UA CLOUDY; Color Urine UA OTHER
[2024-02-26 16:32] LABS: Bacteria Urine Few (2-10); Culture Indicated Urine Specimen Cultured; RBC Urine >100/HPF (0-5/HPF); Squamous Epithelial Cell Urine 0-1 /HPF (0-5/HPF); Urine Volume 10mL (spun); WBC Urine >100/HPF (0-5/HPF)
== END ==
LOC: LAB 15:59
PROVIDERS: Family Provider Internal Medicine; PCP Internal Medicine; Referring Provider Urology; Visit Provider Urology
DX: R35.0 Frequency of micturition (principal)
CPT/HCPCS: 81001; 87077; 87086; 87186

== ENCOUNTER → 2024-03-07 15:36 | Outpatient (CLI) | payer MEDICARE, SELFPAY | PROVIDERS: Family Provider Internal Medicine; PCP Internal Medicine; Visit Provider Urology | DX: R33.9 Retention of urine, unspecified (principal); R31.9 Hematuria, unspecified; R39.9 Unspecified symptoms and signs involving the genitourinary system | CPT/HCPCS: 87077; 87086 ==

== ENCOUNTER 2024-03-10 16:27 | Emergency (ER) | payer MEDICARE, SELFPAY ==
[2024-03-10 16:37] VITALS: BP 142/83; PULSE 105; RESP 16; TEMP 36.6; O2SAT 97; BMI 25.3
[2024-03-10] MEDS: LIDOCAINE 2% (GLYDO) 6 ML GEL TOP (17:11)
[2024-03-10 17:18] LABS: Add Manual Diff / Slide Review NO; Basophils Absolute Auto 100 /uL (0-100); Basophils Percent Auto 0.6 % (0-2); Eosinophils Absolute Auto 100 /uL (0-450); Eosinophils Percent Auto 0.7 % (2-4); Hematocrit 38.2 % (41-53); Hemoglobin 12.9 g/dL (13.5-17.5); Lymphocytes Absolute Auto 1300 /uL (1100-4500); Lymphocytes Percent Auto 11.6 % (25-40); Mean Corpuscular HGB Conc 33.9 % (30-36); Mean Corpuscular Hemoglobin 34.4 PG (26-34); Mean Corpuscular Volume 101.4 fL (80-100); Monocytes Absolute Auto 900 /uL (0-900); Monocytes Percent Auto 7.6 % (3-14); Neutrophils Absolute Auto 9200 /uL (1500-7000); Neutrophils Percent Auto 79.5 % (50-75); Platelet Count 344 X10^3/uL (150-400); Red Blood Cell Count 3.76 X10^6/uL (4.5-5.9); Red Cell Distribution Width 15.8 % (11.6-14.8); White Blood Cell Count 11.6 X10^3/uL (4.5-11.0)
--- NOTE | 2024-03-10 17:25 | PC.NURSE ---
Arrives with c/o bladder spasms and retention. bladder scan shows 1000ml+ in bladder. reports has seen Dr Abel recently and has been messaging with Dr Abel's nurse all day and advised to come to ED for evaluation. The patient underwent cystoscopy with periurethral injection of steroid and direct vision internal urethrotomy on 05/19/[address] Abel for a proximal to mid bulbar urethral stricture. He has had ongoing incontinence with finasteride and tamsulosin. history of prostate cancer, s/p remote prostatectomy. Nguyễn placed draining dark red urine and draining.
[2024-03-10 17:27] LABS: Alanine Aminotransferase 18 IU/L (<50); Albumin 4.7 g/dL (3.5-5.0); Albumin Globulin Ratio 1.4 (1.0-2.8); Alkaline Phosphatase 80 U/L (38-126); Aspartate Aminotransferase 29 IU/L (17-59); Bilirubin Total 0.7 mg/dL (0.2-1.3); Blood Urea Nitrogen 23 mg/dL (9-20); Calcium 9.9 mg/dL (8.4-10.2); Carbon Dioxide 19 mmol/L (22-32); Chloride 104 mmol/L (98-107); Estimated Glomerular Filt Rate > 60 mL/min (>60); Globulin 3.3 g/dL (1.7-4.1); Glucose 196 mg/dL (80-110); HEMOLYSIS 25 (0-50); Lipase 161 U/L (23-300); Potassium 4.1 mmol/L (3.4-5.1); Sodium 138 mmol/L (137-145)
[2024-03-10 17:52] LABS: Bilirubin Urine UA NEGATIVE (NEGATIVE); Glucose Urine UA NEGATIVE (Negative); Ketones Urine UA NEGATIVE (NEGATIVE); Leukocyte Esterase Urine UA TRACE (NEGATIVE); Nitrite Urine UA NEGATIVE (Negative); Occult Blood Urine UA 3+ (Negative); Protein Urine UA 2+ (Negative); Urobilinogen Urine UA 0.2 E.U./dL (0.2); pH Urine UA 7.5 (4.5-8.0)
[2024-03-10 17:54] LABS: Appearance Urine UA CLOUDY; Color Urine UA BROWN
[2024-03-10 18:05] LABS: Bacteria Urine Few (2-10); RBC Urine 10-30/HPF (0-5/HPF); Squamous Epithelial Cell Urine 5-10 /HPF (0-5/HPF); Urine Volume 10mL (spun); WBC Urine 5-10/HPF (0-5/HPF)
[2024-03-10 18:06] LABS: Culture Indicated Urine Specimen Cultured
--- NOTE | 2024-03-10 18:27 | ED_ITS ---
HPI - General Adult General Chief complaint: Urogenital-Male Stated complaint: full of water, needs to be drained sent by Dr Abel Time Seen by Provider: 03/10/24 17:56 Source: patient and family Mode of arrival: Ambulatory Limitations: no limitations History of Present Illness HPI narrative: 88-year-old male who is here for evaluation of urinary retention. He is currently on an antibiotic for urinary tract infection. Has under the care of urology. Has not urinated since the middle of the night. Is having some lower abdominal tenderness. Related Data Home Medications Medication Instructions Recorded Confirmed brimonidine 0.2 %-timolol 0.5 % 1 drp EYE-RIGHT BID 06/03/21 03/07/24 eye drops (Combigan) cholecalciferol (vitamin D3) 25 25 mcg PO DAILY 11/07/21 03/07/24 mcg (1,000 unit) capsule dorzolamide 2 % eye drops 1 drp EYE-LEFT BID 03/18/23 03/07/24 netarsudil 0.02 %-latanoprost drp EYE-RIGHT 03/01/24 03/07/24 0.005 % eye drops (Rocklatan) Previous Rx's Medication Instructions Recorded losartan 100 mg tablet 100 mg PO DAILY #90 tabs 04/20/23 simvastatin 20 mg tablet 20 mg PO BEDTIME #90 tabs 04/24/23 memantine 5 mg tablet 5 mg PO BID #180 tabs 06/24/23 mirtazapine 15 mg tablet 7.5 mg (1/2 x 15 mg) PO BEDTIME 06/24/23 #45 tabs pantoprazole 40 mg tablet,delayed 40 mg PO BID #180 tabs 08/10/23 release allopurinol 300 mg tablet 300 mg PO DAILY #90 tabs 08/31/23 metformin 500 mg tablet 1,000 mg (2 x 500 mg) PO BID #360 10/07/23 tabs tamsulosin 0.4 mg capsule 0.4 mg PO BEDTIME #30 caps 12/04/23 amlodipine 10 mg tablet 10 mg PO DAILY #90 tabs 12/17/23 finasteride 5 mg tablet 5 mg PO DAILY #30 tabs 01/21/24 cephalexin 500 mg capsule 500 mg PO TID #33 caps 03/09/24 mirabegron 25 mg tablet,extended 50 mg (2 x 25 mg) PO DAILY #90 tabs 03/10/24 release 24 hr Allergies Allergy/AdvReac Type Severity Reaction Status Date / Time Sulfa (Sulfonamide Allergy Verified 03/10/24 16:37 Antibiotics) donepezil AdvReac Intermediate Diarrhea Verified 03/10/24 16:37 Review of Systems Review of Systems Narrative: See HPI Patient History Medical History Slow transit constipation History of radioisotope therapy Dementia Depression, major, recurrent Incomplete emptying of bladder Urethral stricture High blood pressure Hematuria Obstructive sleep apnea Overweight Personal history of malignant neoplasm of prostate Open angle with borderline findings, low risk, bilateral Trigeminal neuralgia Unspecified lack of coordination Chronic gout, unspecified, without tophus (tophi) Mixed hyperlipidemia Essential hypertension Polyneuropathy, unspecified Type 2 diabetes mellitus with diabetic neuropathy, unspecified Cerebral amyloid angiopathy Nontraumatic intracranial hemorrhage, unspecified Vitiligo Actinic keratosis Pneumonia Pneumothorax Stroke Gout Mumps Measles Chicken pox Vertigo Hearing loss Cataracts, bilateral Hemorrhoid GERD (gastroesophageal reflux disease) Skin cancer Prostate cancer Type 2 diabetes mellitus Surgical History History of prostate biopsy Anesthesia History of eye surgery History of cataract removal with insertion of prosthetic lens (~1999) History of tonsillectomy (~1947) H/O blepharoplasty Family History Father History of heart disease Mother Stroke Brother Cancer Hypertension Hearing impairment Sister Cancer Stroke Hypertension Social History marital status: number of children: 2 household members: spouse Smoking Status: Former smoker alcohol intake: current Type(s) of exercise: other frequency: 1-2 times per week Smoking Status: Former smoker alcohol intake frequency: a few times a week Alcohol type: wine Substance Use Type: does not use Exam Initial Vital Signs Initial Vital Signs: Vital Signs Temperature 97.9 F 03/10/24 16:37 Pulse Rate 105 H 03/10/24 16:37 Respiratory Rate 16 03/10/24 16:37 Blood Pressure 142/83 H 03/10/24 16:37 Pulse Oximetry 97 03/10/24 16:37 Oxygen Delivery Method Room Air 03/10/24 16:37 GI Inspection: non-distended Palpation: soft and No tender Other: Nguyễn catheter in place Course Orders Ordered: Discontinued Medications Lidocaine HCl (Lidocaine 2% (Glydo) 6 Ml Gel) 6 ml TOP NOW ONE Stop: 03/10/24 17:09 Last Admin: 03/10/24 17:11 Dose: 6 ml Documented By: BRITTA Ondansetron HCl (Ondansetron 4 Mg/2 Ml Inj) 4 mg IV NOW PRN PRN Reason: Nausea And Vomiting Ondansetron HCl (Ondansetron 4 Mg Odt) 4 mg PO NOW PRN PRN Reason: Nausea And Vomiting Vital Signs Vital signs: Vital Signs - 8 hr 03/10/24 18:36 03/10/24 18:45 Temperature 97.9 F Pulse Rate 77 Respiratory Rate 17 Blood Pressure 117/78 Pulse Oximetry 99 Oxygen Delivery Method Room Air Medical Decision Making Lab Data Lab results reviewed: Yes I reviewed the patient's lab results. 03/10/24 17:00 03/10/24 17:00 Labs: Lab Results 03/10/24 03/10/24 Range/Units 17:00 17:19 WBC 11.6 H (4.5-11.0) X10^3/uL RBC 3.76 L (4.5-5.9) X10^6/uL Hgb 12.9 L (13.5-17.5) g/dL Hct 38.2 L (41-53) % MCV 101.4 H (80-100) fL MCH 34.4 H (26-34) PG MCHC 33.9 (30-36) % RDW 15.8 H (11.6-14.8) % Plt Count 344 (150-400) X10^3/uL Neut % (Auto) 79.5 H (50-75) % Lymph % (Auto) 11.6 L (25-40) % [place] % (Auto) 7.6 (3-14) % Eos % (Auto) 0.7 L (2-4) % Baso % (Auto) 0.6 (0-2) % Neut # (Auto) 9200 H (3109-1272) /uL Lymph # (Auto) 1300 (6602-3142) /uL [place] # (Auto) 900 (0-900) /uL Eos # (Auto) 100 (0-450) /uL Baso # (Auto) 100 (0-100) /uL Sodium 138 (137-145) mmol/L Potassium 4.1 (3.4-5.1) mmol/L Chloride 104 (98-107) mmol/L Carbon Dioxide 19 L (22-32) mmol/L BUN 23 H (9-20) mg/dL Creatinine 1.00 (0.66-1.25) mg/dL Estimated GFR > 60 (>60) mL/min BUN/Creatinine Ratio 23.0 H (6-22) Glucose 196 H (80-110) mg/dL Calcium 9.9 (8.4-10.2) mg/dL Total Bilirubin 0.7 (0.2-1.3) mg/dL AST 29 (17-59) IU/L ALT 18 (<50) IU/L Alkaline Phosphatase 80 (38-126) U/L Total Protein 8.0 (6.3-8.2) g/dL Albumin 4.7 (3.5-5.0) g/dL Globulin 3.3 (1.7-4.1) g/dL Albumin/Globulin Ratio 1.4 (1.0-2.8) Lipase 161 (23-300) U/L Urine Color Brown Urine Appearance Cloudy Urine pH 7.5 (4.5-8.0) Ur Specific [place] 1.010 (1.000-1.035) Urine Protein 2+ H (Negative) Urine Glucose (UA) Negative (Negative) g/dL Urine Ketones Negative (NEGATIVE) Urine Occult Blood 3+ H (Negative) Urine Nitrate Negative (Negative) Urine Bilirubin Negative (NEGATIVE) Urine Urobilinogen 0.2 (0.2) E.U./dL Ur Leukocyte Esterase Trace H (NEGATIVE) Urine RBC 10-30/hpf H (0-5/HPF) Urine WBC 5-10/hpf H (0-5/HPF) Ur Squamous Epith Cells 5-10 /hpf H (0-5/HPF) Urine Bacteria Few (2-10) H (None) Ur Culture Indicated? Specimen cultured Vol Urine Centrifuged 10ml (spun) MDM Narrative Medical decision making narrative: Patient is retaining urine. A Nguyễn catheter was placed prior to my evaluation. He was now draining urine. Abdominal discomfort is improved. Will have him continue to take his current antibiotics. Contact Urology for follow-up. Discharge Plan Departure Patient Disposition: Home Clinical Impression: Acute urinary retention Instructions: How to Care for Your Nguyễn Catheter -- Male, DI for Urinary Retention in Men Activity Restrictions/Additional Instructions: I do recommend that tomorrow you contact the urologist office for a follow-up. Continue to take all of your medications as directed. Return to the emergency department for new symptoms. Prescriptions: No Action losartan 100 mg tablet 100 mg PO DAILY Qty: 90 3RF simvastatin 20 mg tablet 20 mg PO BEDTIME Qty: 90 3RF pantoprazole 40 mg tablet,delayed release (DR/EC) 40 mg PO BID Qty: 180 3RF allopurinol 300 mg tablet 300 mg PO DAILY Qty: 90 3RF metformin 500 mg tablet 1,000 mg PO BID Qty: 360 3RF amlodipine 10 mg tablet 10 mg PO DAILY Qty: 90 3RF cephalexin 500 mg capsule 500 mg PO TID Qty: 33 0RF mirabegron 25 mg tablet extended release 24 hr 50 mg PO DAILY Qty: 90 3RF memantine 5 mg tablet 5 mg PO BID Qty: 180 3RF mirtazapine 15 mg tablet 7.5 mg PO BEDTIME Qty: 45 3RF Hold Instructions: poss. sedation cholecalciferol (vitamin D3) 25 mcg (1,000 unit) capsule 25 mcg PO DAILY brimonidine-timolol [Combigan] 0.2-0.5 % drops 1 drp EYE-RIGHT BID Patient Comments: INSTILL 1 DROP IN THE RIGHT EYE EVERY 12 HOURS dorzolamide 2 % drops 1 drp EYE-LEFT BID tamsulosin 0.4 mg capsule 0.4 mg PO BEDTIME Qty: 30 12RF finasteride 5 mg tablet 5 mg PO DAILY Qty: 30 12RF Rocklatan 0.02-0.005 % drops EYE-RIGHT Referrals: Joseph Crespo MD [Primary Care Provider] - Stand Alone Forms: Patient Portal/API
[2024-03-10 18:36] VITALS: TEMP 36.6
[2024-03-10 18:45] VITALS: BP 117/78; PULSE 77; RESP 17; O2SAT 99
--- NOTE | 2024-03-10 18:45 | PC.NURSE ---
Patient given a urinary leg bag, instructed on use and changing of urinary drainage bags.
== END 2024-03-10 18:45 | disposition home or self-care (01) ==
PROVIDERS: Emergency Medicine; Emergency Provider Emergency Medicine; Family Provider Internal Medicine; PCP Internal Medicine
DX: R33.8 Other retention of urine (principal); Z79.899 Other long term (current) drug therapy
CPT/HCPCS: 36415; 80053; 81001; 83690; 85025; 87086; 99283; 99284

== ENCOUNTER → 2024-03-23 14:56 | Outpatient (CLI) | payer MEDICARE, SELFPAY | PROVIDERS: Family Provider Internal Medicine; PCP Internal Medicine; Visit Provider Urology | DX: R35.0 Frequency of micturition (principal); R33.8 Other retention of urine; R33.9 Retention of urine, unspecified; R31.9 Hematuria, unspecified | CPT/HCPCS: 87077; 87086; 87186 ==

== ENCOUNTER 2024-04-29 10:25 | Emergency (ER) | payer MEDICARE, SELFPAY ==
[2024-04-29 10:42] VITALS: BP 123/61; PULSE 96; RESP 18; TEMP 36.6; O2SAT 98; BMI 25.3
--- NOTE | 2024-04-29 12:11 | ED_ITS ---
HPI - Male Genitourinary <Mary Teran PA-C - Last Filed: 04/29/24 13:10> General Chief complaint: Urogenital-Male Stated complaint: unable to urinate, diarrhea Time Seen by Provider: 04/29/24 12:03 Source: family Mode of arrival: Family Vehicle History of Present Illness HPI Narrative: Patient is a very pleasant 88-year-old male presents to the emergency room department with his . Complaints of urinary retention, the states that the patient got up around 1:00 a.m., went to the bathroom, was unable to urinate, sat on the toilet, strained and then started having diarrhea. The diarrhea is an ongoing issue, does not new, it has been ongoing for an extended period of time however, the patient's has not had it evaluated by his primary care doctor. The patient has a longstanding history recurrent episodes of urinary retention. Today the patient presents with signs and symptoms of urinary retention. Bladder scan shows almost a 1000 cc of urine in his bladder. Nguyễn is placed, over 2000 cc drain out of clear yellow urine. Size 16 Nguyễn placed by the nurse. Spoke with Maribel Medrano nurse to let her know that the patient had presented to the emergency room department for urinary retention. Related Data Home Medications Medication Instructions Recorded Confirmed brimonidine 0.2 %-timolol 0.5 % 1 drp EYE-RIGHT BID 06/03/21 04/22/24 eye drops (Combigan) cholecalciferol (vitamin D3) 25 25 mcg PO DAILY 11/07/21 04/22/24 mcg (1,000 unit) capsule netarsudil 0.02 %-latanoprost drp EYE-RIGHT 03/01/24 04/22/24 0.005 % eye drops ([place]) mirabegron 25 mg tablet,extended 50 mg PO DAILY PRN 04/05/24 04/22/24 release 24 hr docusate sodium 100 mg capsule 100 mg PO DAILY PRN 04/22/24 04/22/24 (Colace) Previous Rx's Medication Instructions Recorded memantine 5 mg tablet 5 mg PO BID #180 tabs 06/24/23 mirtazapine 15 mg tablet 7.5 mg (1/2 x 15 mg) PO BEDTIME 06/24/23 #45 tabs pantoprazole 40 mg tablet,delayed 40 mg PO BID #180 tabs 08/10/23 release allopurinol 300 mg tablet 300 mg PO DAILY #90 tabs 08/31/23 metformin 500 mg tablet 1,000 mg (2 x 500 mg) PO BID #360 10/07/23 tabs tamsulosin 0.4 mg capsule 0.4 mg PO BEDTIME #30 caps 12/04/23 amlodipine 10 mg tablet 10 mg PO DAILY #90 tabs 12/17/23 finasteride 5 mg tablet 5 mg PO DAILY #30 tabs 01/21/24 simvastatin 20 mg tablet 20 mg PO BEDTIME #90 tabs 04/04/24 losartan 100 mg tablet 100 mg PO DAILY #90 tabs 04/11/24 Allergies Allergy/AdvReac Type Severity Reaction Status Date / Time Sulfa (Sulfonamide Allergy Verified 04/29/24 10:46 Antibiotics) donepezil AdvReac Intermediate Diarrhea Verified 04/29/24 10:46 Review of Systems <Mary Teran PA-C - Last Filed: 04/29/24 13:10> Review of Systems Narrative: Negative except as above Patient History <Mary Teran PA-C - Last Filed: 04/29/24 13:10> Medical History Urinary tract infection Urinary frequency Slow transit constipation History of radioisotope therapy Dementia Depression, major, recurrent Incomplete emptying of bladder Urethral stricture High blood pressure Hematuria Obstructive sleep apnea Overweight Personal history of malignant neoplasm of prostate Open angle with borderline findings, low risk, bilateral Trigeminal neuralgia Unspecified lack of coordination Chronic gout, unspecified, without tophus (tophi) Mixed hyperlipidemia Essential hypertension Polyneuropathy, unspecified Type 2 diabetes mellitus with diabetic neuropathy, unspecified Cerebral amyloid angiopathy Nontraumatic intracranial hemorrhage, unspecified Vitiligo Actinic keratosis Pneumonia Pneumothorax Stroke Gout Mumps Measles Chicken pox Vertigo Hearing loss Cataracts, bilateral Hemorrhoid GERD (gastroesophageal reflux disease) Skin cancer Prostate cancer Type 2 diabetes mellitus Surgical History History of prostate biopsy Anesthesia History of eye surgery History of cataract removal with insertion of prosthetic lens (~1999) History of tonsillectomy (~1947) H/O blepharoplasty Family History Father History of heart disease Mother Stroke Brother Cancer Hypertension Hearing impairment Sister Cancer Stroke Hypertension Social History marital status: number of children: 2 household members: spouse Smoking Status: Former smoker alcohol intake: current Type(s) of exercise: other frequency: 1-2 times per week Smoking Status: Former smoker alcohol intake frequency: a few times a week Alcohol type: wine Substance Use Type: does not use Exam <Mary Teran PA-C - Last Filed: 04/29/24 13:10> Initial Vital Signs Initial Vital Signs: Vital Signs Temperature 97.9 F 04/29/24 10:42 Pulse Rate 96 H 04/29/24 10:42 Respiratory Rate 18 04/29/24 10:42 Blood Pressure 123/61 04/29/24 10:42 Pulse Oximetry 98 04/29/24 10:42 Oxygen Delivery Method Room Air 04/29/24 10:42 Reviewed Const General: cooperative, healthy appearing, comfortable, well developed, well groomed, No acute distress, No in distress and other (Sleeping when I go into the room) HENMT Head: normal to inspection and normocephalic Eyes General: Yes appearance normal, both eyes and all related structures Pupils: PERRL EOM: EOM intact bilaterally External: normal external exam Penis: normal penis Skin General: no rashes or lesions noted, elasticity normal and turgor normal Neuro Other: Patient is sleeping Extrem Other: Patient currently no lying on a bed, no acute distress, able to stand and pivot to a wheelchair. Psych Appearance: grossly normal and well kempt Other: Patient has new onset of dementia, per his have baseline. <Yaneth Lopes DO - Last Filed: 04/30/24 08:38> Initial Vital Signs Initial Vital Signs: Vital Signs Temperature 97.9 F 04/29/24 10:42 Pulse Rate 96 H 04/29/24 10:42 Respiratory Rate 18 04/29/24 10:42 Blood Pressure 123/61 04/29/24 10:42 Pulse Oximetry 98 04/29/24 10:42 Oxygen Delivery Method Room Air 04/29/24 10:42 Procedures <Mary Teran PA-C - Last Filed: 04/29/24 13:10> Penile Procedure Additional Comments: Nguyễn was placed by a nurse. Sixteen size Congolese. Scores <Mary Teran PA-C - Last Filed: 04/29/24 13:10> GCS Citation: Patient at baseline. Course <Mary Teran PA-C - Last Filed: 04/29/24 13:10> Orders Ordered: ED Orders 04/29/24 12:14 Urine Microscopic Stat Vital Signs Vital signs: Vital Signs - 8 hr 04/29/24 10:42 Temperature 97.9 F Pulse Rate 96 H Respiratory Rate 18 Blood Pressure 123/61 Pulse Oximetry 98 Oxygen Delivery Method Room Air Reviewed <Yaneth Lopes DO - Last Filed: 04/30/24 08:38> Orders Ordered: ED Orders 04/29/24 12:14 Urine Microscopic Stat Vital Signs Vital signs: Vital Signs - 8 hr 04/29/24 10:42 Temperature 97.9 F Pulse Rate 96 H Respiratory Rate 18 Blood Pressure 123/61 Pulse Oximetry 98 Oxygen Delivery Method Room Air MDM - Male Genitourinary <Mary Teran PA-C - Last Filed: 04/29/24 13:10> Lab Data Labs: Lab Results 04/29/24 Range/Units 12:07 Urine RBC 10-30/hpf H (0-5/HPF) Urine WBC 5-10/hpf H (0-5/HPF) Ur Squamous Epith Cells 5-10 /hpf H (0-5/HPF) Urine Bacteria None seen (None) Ur Culture Indicated? Cult not indicated Vol Urine Centrifuged 10ml (spun) Urine Dip Bedside Urine Glucose Negative Bedside Urine Bilirubin - Negative Bedside Urine Ketone - Negative Urine Specific [place] 1.010 Bedside Urine Occult Blood +++ Bedside Urine pH 6.5 Bedside Urine Protein - Negative Bedside Urine Urobilinogen - Negative Bedside Urine Nitrite - Negative Bedside Urine Leukocytes - Negative Esterase Point of care urine is negative for infection MDM Narrative Medical decision making narrative: Pleasant 88-year-old male presents to the emergency room department with his for concerns of urinary retention, patient has been unable to pee since 1:00 a.m. this morning. Patient has a history of urinary retention, he has had multiple catheters placed. He has a relationship with 1 of the urologist here in [facility], I have actually contacted their office and made them aware the patient presented to the emergency room department today for urinary retention, they will call the patient's and make arrangements for follow up. Bladder scan initially almost a 1000 is seen. Sixteen size Congolese Nguyễn catheter is placed Almost 2000 cc of clear yellow urine is free flowing Point of care urine shows no infection Patient is discharged after the Nguyễn bag is emptied, leg bag is given to the , instruction is provided for the . Currently at this time the diarrhea is not new, it is ongoing, they have just not followed up with her primary care doctor which the urologist nurse has asked me to ask the to make arrangements. I have also gone over the medications with the patient's and advised her that the medication that she is asked me to refill actually has refills. Differential diagnosis acute urinary retention with a history of chronic urinary retention. Patient will follow up in urology for removal of Nguyễn. <Yaneth Lopes, - Last Filed: 04/30/24 08:38> Lab Data Labs: Lab Results 04/29/24 Range/Units 12:07 Urine RBC 10-30/hpf H (0-5/HPF) Urine WBC 5-10/hpf H (0-5/HPF) Ur Squamous Epith Cells 5-10 /hpf H (0-5/HPF) Urine Bacteria None seen (None) Ur Culture Indicated? Cult not indicated Vol Urine Centrifuged 10ml (spun) Urine Dip Bedside Urine Glucose Negative Bedside Urine Bilirubin - Negative Bedside Urine Ketone - Negative Urine Specific [place] 1.010 Bedside Urine Occult Blood +++ Bedside Urine pH 6.5 Bedside Urine Protein - Negative Bedside Urine Urobilinogen - Negative Bedside Urine Nitrite - Negative Bedside Urine Leukocytes - Negative Esterase Discharge Plan Departure Patient Disposition: Home Clinical Impression: Incomplete emptying of bladder, Acute urinary retention Activity Restrictions/Additional Instructions: Point of care urine shows he does not have an infection You have refills on mirabegron you just need to call the pharmacy and ask them to refill the medication I spoke with Dr. Abel nurse today the call you on Thursday to make an appointment for you for follow up Please call his primary care doctor to address the ongoing chronic diarrhea You have been discharged with a leg bag as well as Nguyễn catheter bag. Return to the emergency department as needed Prescriptions: No Action pantoprazole 40 mg tablet,delayed release (DR/EC) 40 mg PO BID Qty: 180 3RF allopurinol 300 mg tablet 300 mg PO DAILY Qty: 90 3RF metformin 500 mg tablet 1,000 mg PO BID Qty: 360 3RF amlodipine 10 mg tablet 10 mg PO DAILY Qty: 90 3RF simvastatin 20 mg tablet 20 mg PO BEDTIME Qty: 90 3RF losartan 100 mg tablet 100 mg PO DAILY Qty: 90 3RF memantine 5 mg tablet 5 mg PO BID Qty: 180 3RF mirtazapine 15 mg tablet 7.5 mg PO BEDTIME Qty: 45 3RF Hold Instructions: poss. sedation cholecalciferol (vitamin D3) 25 mcg (1,000 unit) capsule 25 mcg PO DAILY brimonidine-timolol [Combigan] 0.2-0.5 % drops 1 drp EYE-RIGHT BID Patient Comments: INSTILL 1 DROP IN THE RIGHT EYE EVERY 12 HOURS tamsulosin 0.4 mg capsule 0.4 mg PO BEDTIME Qty: 30 12RF mirabegron 25 mg tablet extended release 24 hr 50 mg PO DAILY PRN docusate sodium [Colace] 100 mg capsule 100 mg PO DAILY PRN finasteride 5 mg tablet 5 mg PO DAILY Qty: 30 12RF Rocklatan 0.02-0.005 % drops EYE-RIGHT Referrals: Joseph Crespo MD [Primary Care Provider] - Stand Alone Forms: Patient Portal/API ED Sign-out <Yaneth Lopes DO - Last Filed: 04/30/24 08:38> Cosign ED Attending Cosignature Attestation: I was available for consultation.
--- NOTE | 2024-04-29 12:12 | PC.NURSE ---
acute urinary retentionwith history of same. pt states he has had a mckeon in the past for this.
[2024-04-29 12:55] LABS: RBC Urine 10-30/HPF (0-5/HPF); Urine Volume 10mL (spun)
[2024-04-29 12:56] LABS: Bacteria Urine None Seen; Culture Indicated Urine Cult Not Indicated; Squamous Epithelial Cell Urine 5-10 /HPF (0-5/HPF); WBC Urine 5-10/HPF (0-5/HPF)
[2024-04-29 13:09] VITALS: BP 128/59; PULSE 74; RESP 16; TEMP 36.7; O2SAT 95
== END 2024-04-29 13:10 | disposition home or self-care (01) ==
PROVIDERS: Emergency Provider Physician Assistant; Family Provider Internal Medicine; PCP Internal Medicine
DX: R33.8 Other retention of urine (principal); R19.7 Diarrhea, unspecified; Z79.899 Other long term (current) drug therapy
CPT/HCPCS: 51798; 81003; 81015; 99283

== ENCOUNTER 2024-06-01 21:06 | Emergency (ER) | payer MEDICARE, SELFPAY ==
[2024-06-01 21:32] VITALS: BP 140/70; PULSE 76; RESP 16; TEMP 37; O2SAT 94; BMI 25.0
[2024-06-01 22:49] VITALS: BP 123/76; PULSE 76; O2SAT 96
[2024-06-01 22:50] VITALS: BP 123/76; PULSE 76; O2SAT 96
[2024-06-01 23:00] VITALS: BP 117/57; PULSE 57; O2SAT 95
[2024-06-01 23:30] VITALS: BP 121/58; PULSE 74; O2SAT 95
[2024-06-02] VITALS: BP 132/62; PULSE 77; O2SAT 96
--- NOTE | 2024-06-02 00:26 | ED_ITS ---
HPI - Male Genitourinary General Chief complaint: Urogenital-Male Stated complaint: needs catheter fixed Time Seen by Provider: 06/02/24 00:26 Source: patient and family Mode of arrival: Wheelchair History of Present Illness HPI Narrative: Patient is a 88-year-old male with history of chronic indwelling Nguyễn catheter followed by urology Dr. Abel presenting today with Nguyễn catheter problem. The stat lock that holds the catheter in place broke the catheter was not draining properly. This particular catheter has been in place for about 1 month. Related Data Home Medications Medication Instructions Recorded Confirmed brimonidine 0.2 %-timolol 0.5 % 1 drp EYE-RIGHT BID 06/03/21 05/05/24 eye drops ([place]) cholecalciferol (vitamin D3) 25 25 mcg PO DAILY 11/07/21 05/05/24 mcg (1,000 unit) capsule netarsudil 0.02 %-latanoprost drp EYE-RIGHT 03/01/24 05/05/24 0.005 % eye drops ([facility]) mirabegron 25 mg tablet,extended 50 mg PO DAILY PRN 04/05/24 05/05/24 release 24 hr docusate sodium 100 mg capsule 100 mg PO DAILY PRN 04/22/24 04/22/24 (Colace) brinzolamide 1 % eye drp EYE-BOTH 05/05/24 05/05/24 drops,suspension Previous Rx's Medication Instructions Recorded memantine 5 mg tablet 5 mg PO BID #180 tabs 06/24/23 mirtazapine 15 mg tablet 7.5 mg (1/2 x 15 mg) PO BEDTIME 06/24/23 #45 tabs pantoprazole 40 mg tablet,delayed 40 mg PO BID #180 tabs 08/10/23 release allopurinol 300 mg tablet 300 mg PO DAILY #90 tabs 08/31/23 metformin 500 mg tablet 1,000 mg (2 x 500 mg) PO BID #360 10/07/23 tabs tamsulosin 0.4 mg capsule 0.4 mg PO BEDTIME #30 caps 12/04/23 amlodipine 10 mg tablet 10 mg PO DAILY #90 tabs 12/17/23 finasteride 5 mg tablet 5 mg PO DAILY #30 tabs 01/21/24 simvastatin 20 mg tablet 20 mg PO BEDTIME #90 tabs 04/04/24 losartan 100 mg tablet 100 mg PO DAILY #90 tabs 04/11/24 Allergies Allergy/AdvReac Type Severity Reaction Status Date / Time Sulfa (Sulfonamide Allergy Verified 05/05/24 14:30 Antibiotics) donepezil AdvReac Intermediate Diarrhea Verified 05/05/24 14:30 Patient History Medical History Urinary tract infection Urinary frequency Slow transit constipation History of radioisotope therapy Dementia Depression, major, recurrent Incomplete emptying of bladder Urethral stricture High blood pressure Hematuria Obstructive sleep apnea Overweight Personal history of malignant neoplasm of prostate Open angle with borderline findings, low risk, bilateral Trigeminal neuralgia Unspecified lack of coordination Chronic gout, unspecified, without tophus (tophi) Mixed hyperlipidemia Essential hypertension Polyneuropathy, unspecified Type 2 diabetes mellitus with diabetic neuropathy, unspecified Cerebral amyloid angiopathy Nontraumatic intracranial hemorrhage, unspecified Vitiligo Actinic keratosis Pneumonia Pneumothorax Stroke Gout Mumps Measles Chicken pox Vertigo Hearing loss Cataracts, bilateral Hemorrhoid GERD (gastroesophageal reflux disease) Skin cancer Prostate cancer Type 2 diabetes mellitus Surgical History History of prostate biopsy Anesthesia History of eye surgery History of cataract removal with insertion of prosthetic lens (~1999) History of tonsillectomy (~1947) H/O blepharoplasty Family History Father History of heart disease Mother Stroke Brother Cancer Hypertension Hearing impairment Sister Cancer Stroke Hypertension Social History marital status: number of children: 2 household members: spouse Smoking Status: Former smoker alcohol intake: current Type(s) of exercise: other frequency: 1-2 times per week Smoking Status: Former smoker alcohol intake frequency: a few times a week Alcohol type: wine Substance Use Type: does not use Exam Initial Vital Signs Initial Vital Signs: Vital Signs Temperature 98.6 F 06/01/24 21:32 Pulse Rate 76 06/01/24 21:32 Respiratory Rate 16 06/01/24 21:32 Blood Pressure 140/70 06/01/24 21:32 Pulse Oximetry 94 06/01/24 21:32 Oxygen Delivery Method Room Air 06/01/24 21:32 GENERAL: Well-appearing, well-nourished and in no acute distress. CARDIOVASCULAR: peripheral pulses in tact, cap refill <2 sec RESPIRATORY: No respiratory distress, speaks in full sentences without difficulty [ABDOMEN: Soft, nontender, no guarding or rebound] : Nguyễn catheter in place is draining but very cloudy urine EXTREMITIES: Normal range of motion, no clubbing or edema. Neurovascularly intact NEUROLOGICAL: Cranial nerves II through XII grossly intact. Normal gait and speech. SKIN: Warm, dry, no petechiae, no rashes or lesions. Course Orders Ordered: Discontinued Medications Lidocaine HCl (Lidocaine 2% (Glydo) 6 Ml Gel) 6 ml TOP NOW ONE Stop: 06/02/24 00:31 Last Admin: 06/02/24 00:34 Dose: 6 ml Documented By: LIABN Vital Signs Vital signs: Vital Signs - 8 hr 06/01/24 21:32 06/01/24 22:49 06/01/24 22:50 Temperature 98.6 F Pulse Rate 76 76 76 Respiratory Rate 16 Blood Pressure 140/70 123/76 Pulse Oximetry 94 96 96 Oxygen Delivery Method Room Air 06/01/24 22:50 06/01/24 23:00 06/01/24 23:00 Temperature Pulse Rate 57 L Respiratory Rate Blood Pressure 123/76 117/57 L Pulse Oximetry 95 Oxygen Delivery Method 06/01/24 23:30 06/01/24 23:30 06/02/24 00:00 Temperature Pulse Rate 74 77 Respiratory Rate Blood Pressure 121/58 L Pulse Oximetry 95 96 Oxygen Delivery Method 06/02/24 00:00 06/02/24 00:30 06/02/24 00:30 Temperature Pulse Rate 72 Respiratory Rate Blood Pressure 132/62 136/68 Pulse Oximetry 94 Oxygen Delivery Method 06/02/24 01:00 06/02/24 01:01 06/02/24 01:01 Temperature Pulse Rate 79 75 Respiratory Rate Blood Pressure 125/102 H Pulse Oximetry 96 94 Oxygen Delivery Method 06/02/24 01:13 Temperature 98.6 F Pulse Rate 77 Respiratory Rate 18 Blood Pressure 132/93 H Pulse Oximetry 95 Oxygen Delivery Method Room Air MDM - Male Genitourinary MDM Narrative Medical decision making narrative: Patient 88-year-old male who presents today with catheter problem sounds like the stat walk that adheres to leg broke. Catheter was exchanged it is due to be exchanged in a couple days. It was easily removed replaced. Patient has no other complaints or abnormality per . He is to see Urology soon, he is followed by Dr. Abel Discharge Plan Departure Patient Disposition: Home Clinical Impression: Complication of Nguyễn catheter Instructions: How to Care for Your Nguyễn Catheter -- Male Activity Restrictions/Additional Instructions: *You have been diagnosed with Nguyễn catheter problem *What to do: Please follow up with Dr. Abel *Continue to take medications as directed *Follow up with your primary care provider in 2-3 days or call [phone] *Return to ER if you should have increasing confusion blood in urine catheter problem or any new, worsening or concerning symptoms Prescriptions: No Action pantoprazole 40 mg tablet,delayed release (DR/EC) 40 mg PO BID Qty: 180 3RF allopurinol 300 mg tablet 300 mg PO DAILY Qty: 90 3RF metformin 500 mg tablet 1,000 mg PO BID Qty: 360 3RF amlodipine 10 mg tablet 10 mg PO DAILY Qty: 90 3RF simvastatin 20 mg tablet 20 mg PO BEDTIME Qty: 90 3RF losartan 100 mg tablet 100 mg PO DAILY Qty: 90 3RF memantine 5 mg tablet 5 mg PO BID Qty: 180 3RF mirtazapine 15 mg tablet 7.5 mg PO BEDTIME Qty: 45 3RF Hold Instructions: poss. sedation cholecalciferol (vitamin D3) 25 mcg (1,000 unit) capsule 25 mcg PO DAILY brinzolamide 1 % drops,suspension EYE-BOTH brimonidine-timolol [Combigan] 0.2-0.5 % drops 1 drp EYE-RIGHT BID Patient Comments: INSTILL 1 DROP IN THE RIGHT EYE EVERY 12 HOURS tamsulosin 0.4 mg capsule 0.4 mg PO BEDTIME Qty: 30 12RF mirabegron 25 mg tablet extended release 24 hr 50 mg PO DAILY PRN Hold Instructions: anuria docusate sodium [Colace] 100 mg capsule 100 mg PO DAILY PRN finasteride 5 mg tablet 5 mg PO DAILY Qty: 30 12RF Rocklatan 0.02-0.005 % drops EYE-RIGHT Referrals: Joseph Crespo MD [Primary Care Provider] - Jeet Abel MD [Physician] - Stand Alone Forms: Patient Portal/API/Survey
[2024-06-02 00:30] VITALS: BP 136/68; PULSE 72; O2SAT 94
[2024-06-02] MEDS: LIDOCAINE 2% (GLYDO) 6 ML GEL TOP (00:34)
[2024-06-02 01:00] VITALS: PULSE 79; O2SAT 96
[2024-06-02 01:01] VITALS: BP 125/102; PULSE 75; O2SAT 94
[2024-06-02 01:13] VITALS: BP 132/93; PULSE 77; RESP 18; TEMP 37; O2SAT 95
== END 2024-06-02 01:14 | disposition home or self-care (01) ==
PROVIDERS: Emergency Provider Emergency Medicine; Family Provider Internal Medicine; PCP Internal Medicine
DX: T83.9XXA Unspecified complication of genitourinary prosthetic device, implant and graft, initial encounter (principal)
CPT/HCPCS: 99283; 99284

== ENCOUNTER → 2024-06-20 15:52 | Outpatient (CLI) | payer MEDICARE, SELFPAY | PROVIDERS: Family Provider Internal Medicine; PCP Internal Medicine; Visit Provider Urology | DX: R33.9 Retention of urine, unspecified (principal); N35.919 Unspecified urethral stricture, male, unspecified site; Z87.898 Personal history of other specified conditions | CPT/HCPCS: 81002; 87077; 87086; 87186 ==

== ENCOUNTER → 2024-08-29 12:44 | Outpatient (CLI) | payer MEDICARE, SELFPAY ==
[2024-08-29 14:31] LABS: Appearance Urine UA CLOUDY; Bilirubin Urine UA NEGATIVE (NEGATIVE); Color Urine UA YELLOW; Glucose Urine UA NEGATIVE (Negative); Ketones Urine UA TRACE (NEGATIVE); Leukocyte Esterase Urine UA 3+ (NEGATIVE); Nitrite Urine UA NEGATIVE (Negative); Occult Blood Urine UA 3+ (Negative); Protein Urine UA 2+ (Negative); Urobilinogen Urine UA 0.2 E.U./dL (0.2); pH Urine UA 5.5 (4.5-8.0)
[2024-08-29 14:44] LABS: Bacteria Urine Moderate (10-30); Culture Indicated Urine Specimen Cultured; RBC Urine 0-1/HPF (0-5/HPF); Squamous Epithelial Cell Urine 1-5 /HPF (0-5/HPF); Urine Volume 10mL (spun); WBC Urine >100/HPF (0-5/HPF)
== END ==
PROVIDERS: Family Provider Internal Medicine; PCP Internal Medicine; Referring Provider Urology; Visit Provider Urology
DX: Z87.440 Personal history of urinary (tract) infections (principal); Z87.898 Personal history of other specified conditions
CPT/HCPCS: 81001; 87077; 87086; 87186

== ENCOUNTER → 2024-09-01 12:32 | Outpatient (CLI) | payer MEDICARE, SELFPAY ==
[2024-09-01 13:16] LABS: Hematocrit 31.8 % (41-53); Hemoglobin 10.7 g/dL (13.5-17.5); Mean Corpuscular HGB Conc 33.6 % (30-36); Mean Corpuscular Hemoglobin 33.1 PG (26-34); Mean Corpuscular Volume 98.6 fL (80-100); Platelet Count 357 X10^3/uL (150-400); Red Blood Cell Count 3.22 X10^6/uL (4.5-5.9); Red Cell Distribution Width 15.6 % (11.6-14.8); White Blood Cell Count 7.4 X10^3/uL (4.5-11.0)
[2024-09-01 13:24] LABS: Hemoglobin A1C% w Est Avg Glu 6.8 % (4.0-6.0)
[2024-09-01 13:30] LABS: BUN Creatinine Ratio 17.4 (6-22); Blood Urea Nitrogen 25 mg/dL (9-20); Calcium 9.2 mg/dL (8.4-10.2); Carbon Dioxide 24 mmol/L (22-32); Chloride 105 mmol/L (98-107); Estimated Glomerular Filt Rate 47 mL/min (>60); Glucose 96 mg/dL (80-110); HEMOLYSIS < 15 (0-50); Potassium 4.8 mmol/L (3.4-5.1); Sodium 140 mmol/L (137-145)
== END ==
LOC: LAB 12:33
PROVIDERS: Family Provider Internal Medicine; PCP Internal Medicine; Referring Provider Internal Medicine; Visit Provider Internal Medicine
DX: E11.40 Type 2 diabetes mellitus with diabetic neuropathy, unspecified (principal); Z87.440 Personal history of urinary (tract) infections
CPT/HCPCS: 36415; 80048; 83036; 85027

== ENCOUNTER 2024-09-03 00:43 | Emergency (ER) | payer MEDICARE, SELFPAY ==
[2024-09-03 01:09] VITALS: BP 134/76; PULSE 94; RESP 16; TEMP 36.5; O2SAT 97; BMI 26.3
[2024-09-03 04:07] VITALS: BP 117/69; PULSE 90; RESP 18; O2SAT 94
[2024-09-03] MEDS: LIDOCAINE 2% (GLYDO) 6 ML GEL TOP (04:20)
[2024-09-03 04:30] VITALS: PULSE 84; O2SAT 96
[2024-09-03 04:35] LABS: Appearance Urine UA CLEAR; Bilirubin Urine UA NEGATIVE (NEGATIVE); Color Urine UA YELLOW; Glucose Urine UA NEGATIVE (Negative); Ketones Urine UA NEGATIVE (NEGATIVE); Nitrite Urine UA NEGATIVE (Negative); Occult Blood Urine UA 3+ (Negative); Protein Urine UA TRACE (Negative); Specific Gravity Urine UA 1.015 (1.000-1.035); Urobilinogen Urine UA 0.2 E.U./dL (0.2)
[2024-09-03 04:46] LABS: Bacteria Urine None Seen; Culture Indicated Urine Cult Not Indicated; Leukocyte Esterase Urine UA NEGATIVE (NEGATIVE); RBC Urine 10-30/HPF (0-5/HPF); Squamous Epithelial Cell Urine 0-1 /HPF (0-5/HPF); Urine Volume 10mL (spun); WBC Urine None Seen (0-5/HPF)
[2024-09-03 05:05] VITALS: PULSE 90
--- NOTE | 2024-09-03 05:06 | ED.MALEGU ---
HPI - Male Genitourinary General Chief complaint: Urogenital-Male Stated complaint: Unable to urinate Time Seen by Provider: 09/03/24 04:15 Source: patient and family Mode of arrival: Wheelchair History of Present Illness HPI Narrative: 89-year-old male with history of prostate cancer, status post remote prostate radiation seed treatment, followed by local urologist Dr. Abel, without recent Nguyễn/urinary catheter, has had inability to urinate since last night. No fevers or chills. No flank pain. No nausea or vomiting. No current/recent antibiotics for infections. No in out catheterizations at home. No recent urinary catheter procedures recalled Related Data Home Medications Medication Instructions Recorded Confirmed brimonidine 0.2 %-timolol 0.5 % 1 drp EYE-RIGHT BID 06/03/21 09/01/24 eye drops (Combigan) cholecalciferol (vitamin D3) 25 25 mcg PO DAILY 11/07/21 09/01/24 mcg (1,000 unit) capsule netarsudil 0.02 %-latanoprost drp EYE-RIGHT 03/01/24 09/01/24 0.005 % eye drops ([facility]) mirabegron 25 mg tablet,extended 50 mg PO DAILY PRN 04/05/24 09/01/24 release 24 hr docusate sodium 100 mg capsule 100 mg PO DAILY PRN 04/22/24 09/01/24 (Colace) brinzolamide 1 % eye drp EYE-BOTH 05/05/24 09/01/24 drops,suspension Previous Rx's Medication Instructions Recorded metformin 500 mg tablet 1,000 mg (2 x 500 mg) PO BID #360 10/07/23 tabs amlodipine 10 mg tablet 10 mg PO DAILY #90 tabs 12/17/23 finasteride 5 mg tablet 5 mg PO DAILY #30 tabs 01/21/24 simvastatin 20 mg tablet 20 mg PO BEDTIME #90 tabs 04/04/24 losartan 100 mg tablet 100 mg PO DAILY #90 tabs 04/11/24 memantine 5 mg tablet 5 mg PO BID #180 tabs 06/22/24 pantoprazole 40 mg tablet,delayed 40 mg PO BID #180 tabs 08/01/24 release tamsulosin 0.4 mg capsule 0.8 mg (2 x 0.4 mg) PO BEDTIME 08/02/24 #180 caps allopurinol 300 mg tablet 300 mg PO DAILY #90 tabs 08/29/24 mirtazapine 15 mg tablet 7.5 mg (1/2 x 15 mg) PO BEDTIME 08/29/24 #45 tabs ciprofloxacin HCl 500 mg tablet 500 mg PO BID #20 tabs 08/31/24 (Cipro) Allergies Allergy/AdvReac Type Severity Reaction Status Date / Time Sulfa (Sulfonamide Allergy Verified 09/01/24 11:35 Antibiotics) donepezil AdvReac Intermediate Diarrhea Verified 09/01/24 11:35 Patient History Medical History (Updated 09/03/24 @ 05:40 by Corey Veliz MD) History of urinary tract infection History of urinary retention Urinary tract infection Urinary frequency Slow transit constipation History of radioisotope therapy Dementia Depression, major, recurrent Incomplete emptying of bladder Urethral stricture High blood pressure Hematuria Obstructive sleep apnea Overweight Personal history of malignant neoplasm of prostate Open angle with borderline findings, low risk, bilateral Trigeminal neuralgia Unspecified lack of coordination Chronic gout, unspecified, without tophus (tophi) Mixed hyperlipidemia Essential hypertension Polyneuropathy, unspecified Type 2 diabetes mellitus with diabetic neuropathy, unspecified Cerebral amyloid angiopathy Nontraumatic intracranial hemorrhage, unspecified Vitiligo Actinic keratosis Pneumonia Pneumothorax Stroke Gout Mumps Measles Chicken pox Vertigo Hearing loss Cataracts, bilateral Hemorrhoid GERD (gastroesophageal reflux disease) Skin cancer Prostate cancer Type 2 diabetes mellitus Surgical History History of prostate biopsy Anesthesia History of eye surgery History of cataract removal with insertion of prosthetic lens (~1999) History of tonsillectomy (~1947) H/O blepharoplasty Family History Father History of heart disease Mother Stroke Brother Cancer Hypertension Hearing impairment Sister Cancer Stroke Hypertension Social History marital status: number of children: 2 household members: spouse Smoking Status: Former smoker alcohol intake: current Type(s) of exercise: other frequency: 1-2 times per week Smoking Status: Former smoker alcohol intake frequency: a few times a week Alcohol type: wine Exam Narrative Exam Narrative: GENERAL: Well-developed patient, in mild distress. HEAD: Atraumatic. Normocephalic. EYES: Pupils equal round and reactive. Extraocular motions intact. No scleral icterus. No injection or drainage. ENT: Nose without bleeding, purulent drainage. Throat without erythema, tonsillar hypertrophy or exudate. Airway patent. NECK: Trachea midline. Non tender CARDIOVASCULAR: Regular rate and rhythm without murmurs, gallops, or rubs. RESPIRATORY: Clear to auscultation. Breath sounds equal bilaterally. No wheezes, rales, or rhonchi. GASTROINTESTINAL: Abdomen soft, non-tender, nondistended. EXTREMITIES: No edema or joint tenderness. BACK: Nontender without deformity or crepitance. No flank tenderness. NEURO: AOx3. Motor functions grossly nonfocal SKIN: No rash or erythema of visible areas Initial Vital Signs Initial Vital Signs: Vital Signs Temperature 97.7 F 09/03/24 01:09 Pulse Rate 94 H 09/03/24 01:09 Respiratory Rate 16 09/03/24 01:09 Blood Pressure 134/76 09/03/24 01:09 Pulse Oximetry 97 09/03/24 01:09 Oxygen Delivery Method Room Air 09/03/24 01:09 Course Orders Ordered: Discontinued Medications Lidocaine HCl (Lidocaine 2% (Glydo) 6 Ml Gel) 6 ml TOP NOW ONE Stop: 09/03/24 04:05 Last Admin: 09/03/24 04:20 Dose: 6 ml Documented By: DANILO Vital Signs Vital signs: Vital Signs - 8 hr 09/03/24 01:09 09/03/24 04:07 09/03/24 04:30 Temperature 97.7 F Pulse Rate 94 H 90 84 Respiratory Rate 16 18 Blood Pressure 134/76 117/69 Pulse Oximetry 97 94 96 Oxygen Delivery Method Room Air Room Air 09/03/24 05:05 Temperature Pulse Rate 90 Respiratory Rate Blood Pressure Pulse Oximetry Oxygen Delivery Method MDM - Male Genitourinary Lab Data Labs: Lab Results 09/03/24 Range/Units 04:20 Urine Color Yellow Urine Appearance Clear Urine pH 7.0 (4.5-8.0) Ur Specific [place] 1.015 (1.000-1.035) Urine Protein Trace H (Negative) Urine Glucose (UA) Negative (Negative) g/dL Urine Ketones Negative (NEGATIVE) Urine Occult Blood 3+ H (Negative) Urine Nitrate Negative (Negative) Urine Bilirubin Negative (NEGATIVE) Urine Urobilinogen 0.2 (0.2) E.U./dL Ur Leukocyte Esterase Negative (NEGATIVE) Urine RBC 10-30/hpf H (0-5/HPF) Urine WBC None seen (0-5/HPF) Ur Squamous Epith Cells 0-1 /hpf (0-5/HPF) Urine Bacteria None seen (None) Ur Culture Indicated? Cult not indicated Vol Urine Centrifuged 10ml (spun) MDM Narrative Medical decision making narrative: 89-year-old male with history of prostate cancer status post remote seed implant radiation treatment, no recent catheterization or antibiotics, inability to urinate since last night, bladder ultrasound showed high residual 400 cc estimated, Nguyễn catheter placed, with relief of symptoms, clear fluid nonbloody, no clot. Urinalysis negative. We discussed options about catheter duration, they would like to leave in place for now and contact their urologist Dr. Abel on Thursday morning. Discharged home with catheter in place, leg collection bag to be dispensed. Discharge Plan Departure Patient Disposition: Home Clinical Impression: Urinary retention Activity Restrictions/Additional Instructions: 89-year-old male with history of prostate cancer, history of radiation see treatment, no recent catheterization, no current indwelling urinary catheter, inability to urinate since last night, high residual noted on bladder scanning in the bladder, catheter was placed, nonbloody fluid was drained with relief of symptoms. Urinalysis not suspicious for infection at this time. We discussed options about the catheter duration. You decided to leave the catheter in place for now and contact your urologist Dr. Abel on Thursday. Leave in place for now. Continue taking your tamsulosin medication as prescribed. Continue your other chronic medications as prescribed. Follow up with Dr. Abel on Thursday, call his office at that time. Return earlier to this/nearest emergency department for any change worsening symptoms or any concerns prior. Thank you for allowing our team to take care of you today. Prescriptions: No Action metformin 500 mg tablet 1,000 mg PO BID Qty: 360 3RF amlodipine 10 mg tablet 10 mg PO DAILY Qty: 90 3RF simvastatin 20 mg tablet 20 mg PO BEDTIME Qty: 90 3RF losartan 100 mg tablet 100 mg PO DAILY Qty: 90 3RF memantine 5 mg tablet 5 mg PO BID Qty: 180 3RF pantoprazole 40 mg tablet,delayed release (DR/EC) 40 mg PO BID Qty: 180 3RF tamsulosin 0.4 mg capsule 0.8 mg PO BEDTIME Qty: 180 3RF allopurinol 300 mg tablet 300 mg PO DAILY Qty: 90 3RF mirtazapine 15 mg tablet 7.5 mg PO BEDTIME Qty: 45 3RF Hold Instructions: poss. sedation ciprofloxacin HCl [Cipro] 500 mg tablet 500 mg PO BID Qty: 20 0RF Rx Instructions: Patient to hold simvastatin while taking this medication cholecalciferol (vitamin D3) 25 mcg (1,000 unit) capsule 25 mcg PO DAILY brinzolamide 1 % drops,suspension EYE-BOTH brimonidine-timolol [Combigan] 0.2-0.5 % drops 1 drp EYE-RIGHT BID Patient Comments: INSTILL 1 DROP IN THE RIGHT EYE EVERY 12 HOURS mirabegron 25 mg tablet extended release 24 hr 50 mg PO DAILY PRN Hold Instructions: anuria docusate sodium [Colace] 100 mg capsule 100 mg PO DAILY PRN finasteride 5 mg tablet 5 mg PO DAILY Qty: 30 12RF Rocklatan 0.02-0.005 % drops EYE-RIGHT Referrals: Joseph Crespo MD [Primary Care Provider] - Stand Alone Forms: Patient Portal/API/Survey
[2024-09-03 05:30] VITALS: PULSE 86; O2SAT 93
[2024-09-03 06:03] VITALS: BP 108/62; PULSE 91; RESP 18; O2SAT 94
== END 2024-09-03 06:04 | disposition home or self-care (01) ==
PROVIDERS: Emergency Provider Emergency Medicine; Family Provider Internal Medicine; PCP Internal Medicine
DX: R33.9 Retention of urine, unspecified (principal); Z85.46 Personal history of malignant neoplasm of prostate
CPT/HCPCS: 81001; 99283

== ENCOUNTER 2024-09-04 11:28 | Inpatient (IN) | payer MEDICARE, SELFPAY ==
[2024-09-04] VITALS (19 sets, daily range): BP systolic 86–118; BP diastolic 50–69; PULSE 60–88; RESP 13–25; TEMP 36.5–37.1; O2SAT 94–98; BMI 26.3
--- NOTE | 2024-09-04 11:42 | DI.RAD.S_ITS ---
PROCEDURE: XR CHEST 1V INDICATIONS: chest pain TECHNIQUE: One view of the chest was acquired. COMPARISON: [facility], CR, XR CHEST 1V, 07/23/2023, 11:45. [facility], CR, XR CHEST 2V, 07/14/2023, 17:37. FINDINGS: Surgical changes and devices: None. Lungs and pleura: Low lung volumes are noted. This causes a crowded appearance to the lung markings and limits evaluation. There is blunting of the left costophrenic angle. Mild generalized interstitial prominence can be seen. Mediastinum: The cardiac contours are moderately enlarged. The aorta demonstrates calcification and tortuosity. Bones and chest wall: No suspicious bony lesions. Age-appropriate bony degenerative changes are seen. Overlying soft tissues appear unremarkable. IMPRESSION: There is cardiomegaly with a left-sided pleural effusion. Mild interstitial prominence can be seen. This may be related to pulmonary edema versus artifact. Please consider CHF. Dictated by: Lex Preston M.D. on 09/04/2024 at 11:54 Approved by: Lex Preston M.D. on 09/04/2024 at 11:55
--- NOTE | 2024-09-04 11:42 | EKG_ITS ---
[facility] [address] [place] [address] Test Date: 2024-09-04 Pat Name: Elder Willett Department: [facility] Room: Gender: Male Dampener: SITA : 1935 Requested By: Order Number: [id number] Reading MD: Pa Joaquin Measurements Intervals [place] Rate: 72 P: 18 SD: 194 QRS: 3 QRSD: 162 T: 133 QT: 488 QTc: 534 Interpretive Statements Sinus rhythm with frequent and consecutive premature ventricular complexes Right bundle branch block Inferior infarct , age undetermined T wave abnormality, consider lateral ischemia Electronically Signed On 09-05-2024 7:21:37 PST by Pa Joaquin
[2024-09-04 12:18] LABS: Add Manual Diff / Slide Review NO; Basophils Absolute Auto 100 /uL (0-100); Basophils Percent Auto 0.6 % (0-2); Eosinophils Absolute Auto 400 /uL (0-450); Eosinophils Percent Auto 4.4 % (2-4); Hematocrit 29.1 % (41-53); Hemoglobin 9.8 g/dL (13.5-17.5); Lymphocytes Absolute Auto 1600 /uL (1100-4500); Mean Corpuscular HGB Conc 33.8 % (30-36); Mean Corpuscular Hemoglobin 33.1 PG (26-34); Mean Corpuscular Volume 97.9 fL (80-100); Monocytes Absolute Auto 800 /uL (0-900); Monocytes Percent Auto 8.8 % (3-14); Neutrophils Absolute Auto 6300 /uL (1500-7000); Neutrophils Percent Auto 68.2 % (50-75); Platelet Count 261 X10^3/uL (150-400); Red Blood Cell Count 2.97 X10^6/uL (4.5-5.9); Red Cell Distribution Width 15.9 % (11.6-14.8); White Blood Cell Count 9.2 X10^3/uL (4.5-11.0)
[2024-09-04 12:26] LABS: INR 1.1 (0.9-1.3); Prothrombin Time 12.5 SECONDS (9.4-12.5)
[2024-09-04 12:29] LABS: PTT Partial Thromboplastin Tim 23 SECONDS (25.1-36.5)
[2024-09-04 12:31] LABS: Alanine Aminotransferase 18 IU/L (<50); Albumin 3.6 g/dL (3.5-5.0); Albumin Globulin Ratio 1.3 (1.0-2.8); Alkaline Phosphatase 52 U/L (38-126); Aspartate Aminotransferase 38 IU/L (17-59); BUN Creatinine Ratio 19.2 (6-22); Bilirubin Total 0.5 mg/dL (0.2-1.3); Blood Urea Nitrogen 41 mg/dL (9-20); Calcium 8.3 mg/dL (8.4-10.2); Carbon Dioxide 21 mmol/L (22-32); Chloride 104 mmol/L (98-107); Creatine Kinase 104 U/L (55-170); Estimated Glomerular Filt Rate 29 mL/min (>60); Globulin 2.7 g/dL (1.7-4.1); Glucose 123 mg/dL (80-110); HEMOLYSIS < 15 (0-50); Lipase 68 U/L (23-300); Magnesium 1.2 mg/dL (1.6-2.3); Potassium 3.7 mmol/L (3.4-5.1); Sodium 135 mmol/L (137-145); Total Protein 6.3 g/dL (6.3-8.2)
--- NOTE | 2024-09-04 12:36 | ED_ITS ---
HPI - Male Genitourinary General Chief complaint: Urogenital-Male Stated complaint: Urine output issue Time Seen by Provider: 09/04/24 12:00 Source: family Mode of arrival: Ambulatory History of Present Illness HPI Narrative: 89-year-old man with a history of metastatic prostate cancer brought in by his . He was here 2 days ago with new onset urinary retention and a Nguyễn catheter was placed. Workup at that time was otherwise reassuring. He has a local urologist. His says it today they do not think that we can any new output from the catheter. There is urine in the catheter bag but she says it has been there for about 2 days. The patient does not have abdominal pain fevers or vomiting. Related Data Home Medications Medication Instructions Recorded Confirmed brimonidine 0.2 %-timolol 0.5 % 1 drp EYE-RIGHT BID 06/03/21 09/04/24 eye drops (Combigan) cholecalciferol (vitamin D3) 25 25 mcg PO DAILY 11/07/21 09/04/24 mcg (1,000 unit) capsule netarsudil 0.02 %-latanoprost 1 drp EYE-RIGHT DAILY 03/01/24 09/04/24 0.005 % eye drops (Rocklatan) mirabegron 25 mg tablet,extended 50 mg PO DAILY PRN overactive 04/05/24 09/04/24 release 24 hr bladder docusate sodium 100 mg capsule 100 mg PO DAILY PRN Constipation 04/22/24 09/04/24 (Colace) brinzolamide 1 % eye 1 drp EYE-BOTH DAILY 05/05/24 09/04/24 drops,suspension Previous Rx's Medication Instructions Recorded metformin 500 mg tablet 1,000 mg (2 x 500 mg) PO BID #360 10/07/23 tabs amlodipine 10 mg tablet 10 mg PO DAILY #90 tabs 12/17/23 finasteride 5 mg tablet 5 mg PO DAILY #30 tabs 01/21/24 simvastatin 20 mg tablet 20 mg PO BEDTIME #90 tabs 04/04/24 losartan 100 mg tablet 100 mg PO DAILY #90 tabs 04/11/24 memantine 5 mg tablet 5 mg PO BID #180 tabs 06/22/24 pantoprazole 40 mg tablet,delayed 40 mg PO BID #180 tabs 08/01/24 release tamsulosin 0.4 mg capsule 0.8 mg (2 x 0.4 mg) PO BEDTIME 08/02/24 #180 caps allopurinol 300 mg tablet 300 mg PO DAILY #90 tabs 08/29/24 mirtazapine 15 mg tablet 7.5 mg (1/2 x 15 mg) PO BEDTIME 08/29/24 #45 tabs ciprofloxacin HCl 500 mg tablet 500 mg PO BID #20 tabs 08/31/24 (Cipro) Allergies Allergy/AdvReac Type Severity Reaction Status Date / Time Sulfa (Sulfonamide Allergy Rash Verified 09/04/24 11:33 Antibiotics) donepezil AdvReac Intermediate Diarrhea Verified 09/04/24 11:33 Patient History Medical History (Updated 09/04/24 @ 18:15 by Ivan Todd MD) History of urinary tract infection History of urinary retention Urinary tract infection Urinary frequency Slow transit constipation History of radioisotope therapy Dementia Depression, major, recurrent Incomplete emptying of bladder Urethral stricture High blood pressure Hematuria Obstructive sleep apnea Overweight Personal history of malignant neoplasm of prostate Open angle with borderline findings, low risk, bilateral Trigeminal neuralgia Unspecified lack of coordination Chronic gout, unspecified, without tophus (tophi) Mixed hyperlipidemia Essential hypertension Polyneuropathy, unspecified Type 2 diabetes mellitus with diabetic neuropathy, unspecified Cerebral amyloid angiopathy Nontraumatic intracranial hemorrhage, unspecified Vitiligo Actinic keratosis Pneumonia Pneumothorax Stroke Gout Mumps Measles Chicken pox Vertigo Hearing loss Cataracts, bilateral Hemorrhoid GERD (gastroesophageal reflux disease) Skin cancer Prostate cancer Type 2 diabetes mellitus Surgical History History of prostate biopsy Anesthesia History of eye surgery History of cataract removal with insertion of prosthetic lens (~1999) History of tonsillectomy (~1947) H/O blepharoplasty Family History Father History of heart disease Mother Stroke Brother Cancer Hypertension Hearing impairment Sister Cancer Stroke Hypertension Social History marital status: number of children: 2 household members: spouse Smoking Status: Former smoker alcohol intake: current Type(s) of exercise: other frequency: 1-2 times per week Smoking Status: Former smoker alcohol intake frequency: a few times a week Alcohol type: wine Exam Narrative Exam Narrative: Elderly male who appears to be in no distress. Borderline hypotensive blood pressure. Has a Nguyễn catheter in place with about 300 cc of sudhakar urine in the bag Initial Vital Signs Initial Vital Signs: Vital Signs Temperature 98.3 F 09/04/24 11:33 Pulse Rate 61 09/04/24 11:33 Respiratory Rate 16 09/04/24 11:33 Blood Pressure 86/54 L 09/04/24 11:33 Pulse Oximetry 97 09/04/24 11:33 Oxygen Delivery Method Room Air 09/04/24 11:33 Cardio Other: Normal respiratory effort GI Other: Abdomen is soft, it feels as though he has a distended bladder there is some suprapubic tenderness. Course Orders Ordered: ED Orders 09/04/24 11:42 XR chest 1V Stat EKG-12 Lead Stat 09/04/24 12:10 Complete Blood Count AUTO DIFF Stat Comprehensive Metabolic Panel Stat Lipase Stat Magnesium Stat NT-proBNP (BNP-Adult 18+) Stat PTT Partial Thromboplastin Ahsan Stat Prothrombin Time INR Stat Troponin & CK Cardiac Panel Stat 09/04/24 13:37 UA Complete [Urinalysis and Microscopic] Stat 09/04/24 16:02 Troponin I Stat Acetaminophen (Acetaminophen 325 Mg Tablet) 650 mg PO Q6H PRN PRN Reason: Fever/Mild Pain (1-3) Heparin Sodium (Porcine) (Heparin 5,000 Unit/Ml Vial) 5,000 unit SUBCUT BID REBECA Magnesium Sulfate (Magnesium Sulfate) 2 gm in 50 mls @ 25 mls/hr IV NOW ONE Stop: 09/04/24 18:29 Last Admin: 09/04/24 16:57 Dose: 25 mls/hr Documented By: MIKKI Co-signed By: DARSHANA Dextrose ([id number]) 100 mls @ 999 mls/hr IV PRN PRN PRN Reason: Hypoglycemia Insulin Human Lispro (Insulin Lispro 100 Unit/Ml 3ml Vial) 0 unit SUBCUT ACHS REBECA; Protocol Morphine Sulfate (Morphine 2 Mg/Ml Inj) 2 mg IV Q5MIN PRN PRN Reason: Chest Pain Naloxone HCl (Naloxone 0.4 Mg/Ml Vial) 0.2 mg IV Q2MIN PRN PRN Reason: Opiate Reversal Naloxone HCl (Naloxone 0.4 Mg/Ml Vial) 0.2 mg IV Q2MIN PRN PRN Reason: Opiate Reversal Nitroglycerin (Nitroglycerin 0.4 Mg Sl Tab) 0.4 mg SL [id number] PRN PRN Reason: chest pain Discontinued Medications Aspirin (Aspirin 81 Mg Chew Tab) 324 mg PO NOW ONE Stop: 09/04/24 11:43 Last Admin: 09/04/24 14:33 Dose: Not Given Documented By: TC Sodium Chloride (Normal Saline 0.9%) 1,000 mls @ 1,000 mls/hr IV BOLUS ONE Stop: 09/04/24 16:59 Last Infusion: 09/04/24 16:29 Dose: Infused Documented By: Admin: 09/04/24 16:07 Dose: 1,000 mls/hr Documented By: TC Consultations Consultation #1: Case discussed with Dr. Coronel, we will admit Vital Signs Vital signs: Vital Signs - 8 hr 09/04/24 11:33 09/04/24 11:56 09/04/24 11:59 Temperature 98.3 F Pulse Rate 61 64 Respiratory Rate 16 Blood Pressure 86/54 L 86/50 L Pulse Oximetry 97 98 Oxygen Delivery Method Room Air 09/04/24 11:59 09/04/24 12:00 09/04/24 12:09 Temperature Pulse Rate 65 65 Respiratory Rate Blood Pressure 99/59 L Pulse Oximetry 98 97 Oxygen Delivery Method Room Air 09/04/24 12:09 09/04/24 12:30 09/04/24 12:31 Temperature Pulse Rate 62 64 Respiratory Rate 14 Blood Pressure 100/59 L Pulse Oximetry 96 95 Oxygen Delivery Method 09/04/24 12:31 09/04/24 13:00 09/04/24 13:00 Temperature Pulse Rate 62 88 Respiratory Rate 14 13 Blood Pressure 102/55 L Pulse Oximetry 96 95 Oxygen Delivery Method Room Air Room Air 09/04/24 13:30 09/04/24 13:30 09/04/24 14:00 Temperature Pulse Rate 69 Respiratory Rate 25 H Blood Pressure 106/55 L 101/58 L Pulse Oximetry 97 Oxygen Delivery Method 09/04/24 14:00 09/04/24 14:30 09/04/24 14:30 Temperature Pulse Rate 66 68 Respiratory Rate 16 14 Blood Pressure 105/67 Pulse Oximetry 94 96 Oxygen Delivery Method 09/04/24 15:00 09/04/24 15:30 09/04/24 15:35 Temperature Pulse Rate 71 72 Respiratory Rate 14 14 Blood Pressure 113/65 Pulse Oximetry 95 96 Oxygen Delivery Method Room Air 09/04/24 15:35 09/04/24 16:00 09/04/24 16:00 Temperature Pulse Rate 63 77 Respiratory Rate 16 17 Blood Pressure 116/69 Pulse Oximetry 98 95 Oxygen Delivery Method MDM - Male Genitourinary Medical Records Medical records narrative: Reviewed ED note from 2 days ago Lab Data Lab results narrative: CBC shows a normal white count. CMP is remarkable for elevated creatinine at 2.41 this is an acute kidney injury, baseline creatinine 1.4 for 2 days earlier. 09/04/24 12:10 09/04/24 12:10 Labs: Lab Results 09/04/24 09/04/24 09/04/24 Range/Units 12:10 13:37 14:59 WBC 9.2 (4.5-11.0) X10^3/uL RBC 2.97 L (4.5-5.9) X10^6/uL Hgb 9.8 L (13.5-17.5) g/dL Hct 29.1 L (41-53) % MCV 97.9 (80-100) fL MCH 33.1 (26-34) PG MCHC 33.8 (30-36) % RDW 15.9 H (11.6-14.8) % Plt Count 261 (150-400) X10^3/uL Neut % (Auto) 68.2 (50-75) % Lymph % (Auto) 18.0 L (25-40) % [place] % (Auto) 8.8 (3-14) % Eos % (Auto) 4.4 H (2-4) % Baso % (Auto) 0.6 (0-2) % Neut # (Auto) 6300 (1564-4616) /uL Lymph # (Auto) 1600 (4660-4455) /uL [place] # (Auto) 800 (0-900) /uL Eos # (Auto) 400 (0-450) /uL Baso # (Auto) 100 (0-100) /uL PT 12.5 (9.4-12.5) SECONDS INR 1.1 (0.9-1.3) APTT 23 L (25.1-36.5) SECONDS Sodium 135 L (137-145) mmol/L Potassium 3.7 (3.4-5.1) mmol/L Chloride 104 (98-107) mmol/L Carbon Dioxide 21 L (22-32) mmol/L BUN 41 H (9-20) mg/dL Creatinine 2.14 H (0.66-1.25) mg/dL Estimated GFR 29 L (>60) mL/min BUN/Creatinine Ratio 19.2 (6-22) Glucose 123 H (80-110) mg/dL Calcium 8.3 L (8.4-10.2) mg/dL Magnesium 1.2 L (1.6-2.3) mg/dL Total Bilirubin 0.5 (0.2-1.3) mg/dL AST 38 (17-59) IU/L ALT 18 (<50) IU/L Alkaline Phosphatase 52 (38-126) U/L Total Creatine Kinase 104 (55-170) U/L Troponin I 2.560 H* (0.01-0.034) ng/mL NT-Pro-B Natriuret Pep 38794 H (<450) pg/mL Total Protein 6.3 (6.3-8.2) g/dL Albumin 3.6 (3.5-5.0) g/dL Globulin 2.7 (1.7-4.1) g/dL Albumin/Globulin Ratio 1.3 (1.0-2.8) Lipase 68 (23-300) U/L Urine Color Yellow Urine Appearance Cloudy Urine pH 5.5 (4.5-8.0) Ur Specific [place] <=1.005 (1.000-1.035) Urine Protein Negative (Negative) Urine Glucose (UA) Negative (Negative) g/dL Urine Ketones Negative (NEGATIVE) Urine Occult Blood 3+ H (Negative) Urine Nitrate Negative (Negative) Urine Bilirubin Negative (NEGATIVE) Urine Urobilinogen 0.2 (0.2) E.U./dL Ur Leukocyte Esterase 3+ H D (NEGATIVE) Urine RBC 1-5/hpf D (0-5/HPF) Urine WBC 30-100/hpf H (0-5/HPF) Ur Squamous Epith Cells None seen (0-5/HPF) Ur Transition Epith Cell 0-1/hpf (0-5/HPF) Amorphous Sediment 1+ Urine Bacteria Moderate (10-30) H (None) Urine Mucus 1+ H (Negative) Ur Culture Indicated? Specimen cultured Vol Urine Centrifuged 10ml (spun) Fluid Color Cancelled Fluid Appearance Cancelled Fluid RBC Cancelled Fld Tot Nucleated Cell Cancelled Fluid Neutrophils % Cancelled Fluid Lymphocytes % Cancelled Fluid Eosinophils % Cancelled Fluid Basophils % Cancelled Fluid Meso/Macro/[place] % Cancelled Fluid Abnormal Cells Cancelled Body Fluid Clot Cancelled Fluid Comment Cancelled 09/04/24 Range/Units 16:02 WBC (4.5-11.0) X10^3/uL RBC (4.5-5.9) X10^6/uL Hgb (13.5-17.5) g/dL Hct (41-53) % MCV (80-100) fL MCH (26-34) PG MCHC (30-36) % RDW (11.6-14.8) % Plt Count (150-400) X10^3/uL Neut % (Auto) (50-75) % Lymph % (Auto) (25-40) % [place] % (Auto) (3-14) % Eos % (Auto) (2-4) % Baso % (Auto) (0-2) % Neut # (Auto) (4435-8671) /uL Lymph # (Auto) (0686-0790) /uL [place] # (Auto) (0-900) /uL Eos # (Auto) (0-450) /uL Baso # (Auto) (0-100) /uL PT (9.4-12.5) SECONDS INR (0.9-1.3) APTT (25.1-36.5) SECONDS Sodium (137-145) mmol/L Potassium (3.4-5.1) mmol/L Chloride (98-107) mmol/L Carbon Dioxide (22-32) mmol/L BUN (9-20) mg/dL Creatinine (0.66-1.25) mg/dL Estimated GFR (>60) mL/min BUN/Creatinine Ratio (6-22) Glucose (80-110) mg/dL Calcium (8.4-10.2) mg/dL Magnesium (1.6-2.3) mg/dL Total Bilirubin (0.2-1.3) mg/dL AST (17-59) IU/L ALT (<50) IU/L Alkaline Phosphatase (38-126) U/L Total Creatine Kinase (55-170) U/L Troponin I 2.350 H* (0.01-0.034) ng/mL NT-Pro-B Natriuret Pep (<450) pg/mL Total Protein (6.3-8.2) g/dL Albumin (3.5-5.0) g/dL Globulin (1.7-4.1) g/dL Albumin/Globulin Ratio (1.0-2.8) Lipase (23-300) U/L Urine Color Urine Appearance Urine pH (4.5-8.0) Ur Specific [place] (1.000-1.035) Urine Protein (Negative) Urine Glucose (UA) (Negative) g/dL Urine Ketones (NEGATIVE) Urine Occult Blood (Negative) Urine Nitrate (Negative) Urine Bilirubin (NEGATIVE) Urine Urobilinogen (0.2) E.U./dL Ur Leukocyte Esterase (NEGATIVE) Urine RBC (0-5/HPF) Urine WBC (0-5/HPF) Ur Squamous Epith Cells (0-5/HPF) Ur Transition Epith Cell (0-5/HPF) Amorphous Sediment Urine Bacteria (None) Urine Mucus (Negative) Ur Culture Indicated? Vol Urine Centrifuged Fluid Color Fluid Appearance Fluid RBC Fld Tot Nucleated Cell Fluid Neutrophils % Fluid Lymphocytes % Fluid Eosinophils % Fluid Basophils % Fluid Mes[place]/Macro/[place] % Fluid Abnormal Cells Body Fluid Clot Fluid Comment Imaging Data Chest x-ray: My Impression: Independent review of chest x-ray, cardiomegaly no acute infiltrate interstitial prominence Radiologist's Impression: [address] [address] XRay Report Signed Patient: Elder Willett MR#: [id number] : 1935 Acct:[id number] Age/Sex: 89 / M Date of Service: 09/04/24 Loc: ED Accession Number: [id number] Procedure: XR chest 1V Ordering Provider: Ivan Todd MD PROCEDURE: XR CHEST 1V INDICATIONS: chest pain TECHNIQUE: One view of the chest was acquired. COMPARISON: [facility], CR, XR CHEST 1V, 07/23/2023, 11:45. [facility], CR, XR CHEST 2V, 07/14/2023, 17:37. FINDINGS: Surgical changes and devices: None. Lungs and pleura: Low lung volumes are noted. This causes a crowded appearance to the lung markings and limits evaluation. There is blunting of the left costophrenic angle. Mild generalized interstitial prominence can be seen. Mediastinum: The cardiac contours are moderately enlarged. The aorta demonstrates calcification and tortuosity. Bones and chest wall: No suspicious bony lesions. Age-appropriate bony degenerative changes are seen. Overlying soft tissues appear unremarkable. IMPRESSION: There is cardiomegaly with a left-sided pleural effusion. Mild interstitial prominence can be seen. This may be related to pulmonary edema versus artifact. Please consider CHF. Dictated by: Lex Preston M.D. on 09/04/2024 at 11:54 Approved by: Lex Preston M.D. on 09/04/2024 at 11:55 ECG Data Interpretation: ECG shows sinus rhythm at 72 normal intervals, PVCs are present no acute ST elevation MDM Narrative Medical decision making narrative: 81-year-old male with a catheter in place and a history of metastatic prostate cancer. He presents today with concerns about decreased urine output. He is noted to have an acute kidney injury. Nguyễn was placed 2 days ago. Had no postvoid residual, urine does not appear to be obviously infected and I think waiting for cultures reasonable. I started hydration ordered a renal ultrasound to exclude the possibility of ureteral obstruction. Started some IV hydration and he will be admitted to the hospitalist service. Additionally he had an unexpected finding of an elevated troponin. He is not having chest pain or shortness of breath. Given his lack of symptoms and kidney failure plan at this point is to trend it and hydrate the patient hopefully this will resolve. Discharge Plan Departure Patient Disposition: Admitted As Inpatient Clinical Impression: Acute kidney injury, Elevated troponin Admit Date/Time: 09/04/24 16:10 Admit Provider: Janelle Coronel
[2024-09-04 12:42] LABS: NT-proBNP (BNP-Adult 18+) 28700 pg/mL (<450)
--- NOTE | 2024-09-04 14:47 | EKG_ITS ---
[address] [address] [place] [address] Test Date: 2024-09-04 Pat Name: Elder Willett Department: Room: 220 Gender: Male [employer]: SITA : 1935 Requested By: Order Number: [id number] Reading MD: Pa Joaquin Measurements Intervals [place] Rate: 71 P: 13 DE: 192 QRS: 22 QRSD: 164 T: 126 QT: 496 QTc: 538 Interpretive Statements Sinus rhythm with premature supraventricular complexes and with frequent premature ventricular complexes Right bundle branch block Septal infarct , age undetermined T wave abnormality, consider lateral ischemia Electronically Signed On 09-05-2024 17:07:48 PST by Pa Joaquin
[2024-09-04] MEDS: SODIUM CHLORIDE 0.9% 1,000 ML 1000 ML IV (16:07)
[2024-09-04] MEDS: MAGNESIUM SULFATE 2 GM/50 ML PIGGYBACK IV (16:57)
[2024-09-04 16:58] LABS: Bilirubin Urine UA NEGATIVE (NEGATIVE); Color Urine UA YELLOW; Glucose Urine UA NEGATIVE (Negative); Ketones Urine UA NEGATIVE (NEGATIVE); Leukocyte Esterase Urine UA 3+ (NEGATIVE); Nitrite Urine UA NEGATIVE (Negative); Occult Blood Urine UA 3+ (Negative); Protein Urine UA NEGATIVE (Negative); Specific Gravity Urine UA <=1.005 (1.000-1.035); Urobilinogen Urine UA 0.2 E.U./dL (0.2); pH Urine UA 5.5 (4.5-8.0)
[2024-09-04 16:59] LABS: Appearance Urine UA CLOUDY
[2024-09-04 17:12] LABS: Bacteria Urine Moderate (10-30); RBC Urine 1-5/HPF (0-5/HPF); Urine Volume 10mL (spun); WBC Urine 30-100/HPF (0-5/HPF)
[2024-09-04 17:13] LABS: Amorphous Sediment Urine 1+; Culture Indicated Urine Specimen Cultured; Mucus Urine 1+ (Negative); Squamous Epithelial Cell Urine None Seen (0-5/HPF); Transitional Epi Cells Urine 0-1/HPF (0-5/HPF)
--- NOTE | 2024-09-04 18:00 | DI.US.S_ITS ---
PROCEDURE: US RENAL COMPLETE INDICATIONS: acute kidney injury TECHNIQUE: Real-time scanning was performed of the kidneys and bladder, with image documentation. COMPARISON: [facility], CT, CT IVP A/P W/WO, 03/08/2022, 13:17. FINDINGS: Kidneys: Kidneys are normal in size. Right kidney measures 11.3 cm long; left kidney measures 10.3 cm long. Right renal cortical thickness is 1.3 cm; left renal cortical thickness is 1.5 cm. Renal cortical echotexture is normal. No hydronephrosis. No suspicious solid mass lesions. There is a 5 mm nonobstructing stone seen within the inferior left kidney. Bladder: A Nguyễn catheter is seen, which decompresses the bladder. Miscellaneous: No free pelvic fluid. IMPRESSION: Negative for hydronephrosis. Nonobstructing 5 mm left-sided kidney stone seen by ultrasound. No similar stone can be seen on the prior CT, so this may be related to artifact, however. Dictated by: Lex Preston M.D. on 09/04/2024 at 18:19 Approved by: Lex Preston M.D. on 09/04/2024 at 18:21
--- NOTE | 2024-09-04 19:01 | PC.NURSE ---
Patient arrived this evening at approximately 1710 from ED. He is A&Ox2, at baseline with dementia. He is pleasant and slow to respond. He is unsteady on his feet and week from gurney to bed, needing lots of cueing. Noted +3 edema to BLE's. LS diminished and clear, he is on RA. He denies dizziness, N/V, SOB, CP. Troponins critical but trending down. MD aware. He is placed on tele - R BBB w /PVC's Very light clear yellow urine draining from mckeon, UA sent to lab. is very supportive at bedside. 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 He is encouraged to eat and drink this evening however intake is poor. Bg 124. MD discussing patient/ evaluating patient at length tonight with at bedside. Continuous monitoring
--- NOTE | 2024-09-04 19:04 | P.HP_ITS ---
History of Present Illness History of Present Illness Chief complaint: Urine output issue Narrative: 89-year-old gentleman with remote history of prostate cancer with residual urethral stricture who had his chronic indwelling Nguyễn catheter removed in June of 2024. He had been doing well on a combination of Flomax, finasteride, and myrbetriq at that time. myrbetriq was subsequently either discontinued or reduced in dose (spouse is a bit fuzzy on the details). He reportedly was in for follow-up postvoid residual nurse visits in June as well as late July. But up both of those visits, he had no significant postvoid residuals. He recently developed increasing difficulty with emptying his bladder. He has been having to force the urine out. He would typically move his bowels at the same time as urinating due to the amount of pushing he had to do. He evidently saw Dr. Abel last week and was found to have a UTI. It was noted in that visit that he had had a UTI with a urine culture on August 29 for which he was placed on Cipro. It appears on August 30, patient was restarted on myrbetriq [address] Abel also recommended the patient see Dr. Crespo for consideration of placement due to his increasing care needs. He was seen by Dr. Crespo on September 01 for his routine 3 month follow-up. Lab work was ordered inclusive of a BMP, CBC, and hemoglobin A1c. Labs revealed a hemoglobin of 10.7, BUN 25, creatinine 1.44, hemoglobin A1c was 6.8%. At baseline, creatinine is 1.0. Patient presented to the emergency department on September 03 secondary to inability to empty his bladder since the evening prior. Approximately 400 cc of urine drained. It was clear, nonbloody, no clot. UA was negative. Labs were deferred secondary to them having been done just on the afternoon of September 01. After the Nguyễn catheter was placed, they return home. Patient's spouse reports that very little urine drain. She attempted to get him to drink fluids, but it was quite difficult. Her neighbor was able to get him to take approximately 2 cups of fluid via spoon through the day yesterday. Spouse notes that he did have a trickle of urine after that. Quickly, she was able to get him to drink 2 cups of fluid last night. Again she was able to get a trickle of urine. However, this morning she noticed that there was no urine draining from the catheter. She subsequently brought him back into the emergency department due to concerns about no urine output. A bladder scan was done which revealed no urine in the bladder. On arrival, temp was 98.3?, heart rate 61, respiratory rate 16, BP 86/54, O2 sats 97% on room air. After receiving a gentle fluid bolus, blood pressures did come up to the low 100s systolic. Labs revealed a white blood cell count of 9.2, hemoglobin 9.8, platelets of 261. Chemistry revealed a sodium of 135, potassium 3.7, BUN of 41 up from 25 on September 01, creatinine up to 2.14. Glucose was 123. Magnesium was low at 1.2. Initial troponin was elevated at 2.56, follow-up was improved at 2.35. BNP [place] [address]. UA revealed 3+ blood 3+ leukocyte esterase 30-100 white cells per high-powered field, moderate bacteria and 1+ mucus. Chest x-ray revealed cardiomegaly with a left-sided pleural effusion. Mild interstitial prominence can be seen. May be related to pulmonary edema versus artifact. CHF should be considered. A renal ultrasound was ordered by the ED as well. Patient reports he does not have much of an appetite. He denies any chest pain/tightness/pressure. Denies any shortness of breath. No nausea. No abdominal pain. His notes that typically he is up and ambulatory. He helps his with the dishes and dusting. He does move about the rooms of his home. Over the last week he has not been doing those usual activities. She has not noted any specific leg edema. [facility] Medical History (Updated 09/04/24 @ 18:15 by Ivan Todd MD) History of urinary tract infection History of urinary retention Urinary tract infection Urinary frequency Slow transit constipation History of radioisotope therapy Dementia Depression, major, recurrent Incomplete emptying of bladder Urethral stricture High blood pressure Hematuria Obstructive sleep apnea Overweight Personal history of malignant neoplasm of prostate Open angle with borderline findings, low risk, bilateral Trigeminal neuralgia Unspecified lack of coordination Chronic gout, unspecified, without tophus (tophi) Mixed hyperlipidemia Essential hypertension Polyneuropathy, unspecified Type 2 diabetes mellitus with diabetic neuropathy, unspecified Cerebral amyloid angiopathy Nontraumatic intracranial hemorrhage, unspecified Vitiligo Actinic keratosis Pneumonia Pneumothorax Stroke Gout Mumps Measles Chicken pox Vertigo Hearing loss Cataracts, bilateral Hemorrhoid GERD (gastroesophageal reflux disease) Skin cancer Prostate cancer Type 2 diabetes mellitus Surgical History History of prostate biopsy Anesthesia History of eye surgery History of cataract removal with insertion of prosthetic lens (~1999) History of tonsillectomy (~1947) H/O blepharoplasty Family History Father History of heart disease Mother Stroke Brother Cancer Hypertension Hearing impairment Sister Cancer Stroke Hypertension Social History marital status: number of children: 2 household members: spouse Smoking Status: Former smoker alcohol intake: current Type(s) of exercise: other frequency: 1-2 times per week Meds Home Medications and Allergies Home Medications Medication Instructions Recorded Confirmed Type brimonidine 0.2 %-timolol 0.5 % 1 drp EYE-RIGHT BID 06/03/21 09/04/24 History eye drops (Combigan) cholecalciferol (vitamin D3) 25 25 mcg PO DAILY 11/07/21 09/04/24 History mcg (1,000 unit) capsule metformin 500 mg tablet 1,000 mg (2 x 500 mg) PO BID #360 10/07/23 09/04/24 Rx tabs amlodipine 10 mg tablet 10 mg PO DAILY #90 tabs 12/17/23 09/04/24 Rx finasteride 5 mg tablet 5 mg PO DAILY #30 tabs 01/21/24 09/04/24 Rx netarsudil 0.02 %-latanoprost 1 drp EYE-RIGHT DAILY 03/01/24 09/04/24 History 0.005 % eye drops (Rocklatan) simvastatin 20 mg tablet 20 mg PO BEDTIME #90 tabs 04/04/24 09/04/24 Rx mirabegron 25 mg tablet,extended 50 mg PO DAILY PRN overactive 04/05/24 09/04/24 History release 24 hr bladder losartan 100 mg tablet 100 mg PO DAILY #90 tabs 04/11/24 09/04/24 Rx docusate sodium 100 mg capsule 100 mg PO DAILY PRN Constipation 04/22/24 09/04/24 History (Colace) brinzolamide 1 % eye 1 drp EYE-BOTH DAILY 05/05/24 09/04/24 History drops,suspension memantine 5 mg tablet 5 mg PO BID #180 tabs 06/22/24 09/04/24 Rx pantoprazole 40 mg tablet,delayed 40 mg PO BID #180 tabs 08/01/24 09/04/24 Rx release tamsulosin 0.4 mg capsule 0.8 mg (2 x 0.4 mg) PO BEDTIME 08/02/24 09/04/24 Rx #180 caps allopurinol 300 mg tablet 300 mg PO DAILY #90 tabs 08/29/24 09/04/24 Rx mirtazapine 15 mg tablet 7.5 mg (1/2 x 15 mg) PO BEDTIME 08/29/24 09/04/24 Rx #45 tabs ciprofloxacin HCl 500 mg tablet 500 mg PO BID #20 tabs 08/31/24 09/04/24 Rx (Cipro) Allergies Allergy/AdvReac Type Severity Reaction Status Date / Time Sulfa (Sulfonamide Allergy Rash Verified 09/04/24 11:33 Antibiotics) donepezil AdvReac Intermediate Diarrhea Verified 09/04/24 11:33 Review of Systems Review of Systems Narrative: All other systems were reviewed negative Exam Vital Signs (past 8 hours): - 09/04/24 11:33 09/04/24 11:56 09/04/24 11:59 Temperature 98.3 F Pulse Rate 61 64 Respiratory Rate 16 Blood Pressure 86/54 L 86/50 L Pulse Oximetry 97 98 Oxygen Delivery Method Room Air 09/04/24 11:59 09/04/24 12:00 09/04/24 12:09 Temperature Pulse Rate 65 65 Respiratory Rate Blood Pressure 99/59 L Pulse Oximetry 98 97 Oxygen Delivery Method Room Air 09/04/24 12:09 09/04/24 12:30 09/04/24 12:31 Temperature Pulse Rate 62 64 Respiratory Rate 14 Blood Pressure 100/59 L Pulse Oximetry 96 95 Oxygen Delivery Method 09/04/24 12:31 09/04/24 13:00 09/04/24 13:00 Temperature Pulse Rate 62 88 Respiratory Rate 14 13 Blood Pressure 102/55 L Pulse Oximetry 96 95 Oxygen Delivery Method Room Air Room Air 09/04/24 13:30 09/04/24 13:30 09/04/24 14:00 Temperature Pulse Rate 69 Respiratory Rate 25 H Blood Pressure 106/55 L 101/58 L Pulse Oximetry 97 Oxygen Delivery Method 09/04/24 14:00 09/04/24 14:30 09/04/24 14:30 Temperature Pulse Rate 66 68 Respiratory Rate 16 14 Blood Pressure 105/67 Pulse Oximetry 94 96 Oxygen Delivery Method 09/04/24 15:00 09/04/24 15:30 09/04/24 15:35 Temperature Pulse Rate 71 72 Respiratory Rate 14 14 Blood Pressure 113/65 Pulse Oximetry 95 96 Oxygen Delivery Method Room Air 09/04/24 15:35 09/04/24 16:00 09/04/24 16:00 Temperature Pulse Rate 63 77 Respiratory Rate 16 17 Blood Pressure 116/69 Pulse Oximetry 98 95 Oxygen Delivery Method 09/04/24 16:29 09/04/24 16:30 09/04/24 17:20 Temperature 98.8 F Pulse Rate 66 60 Respiratory Rate 13 17 Blood Pressure 118/57 L 102/68 Pulse Oximetry 95 94 Oxygen Delivery Method Room Air Oxygen Delivery Method Room Air Narrative Exam Narrative: GEN: Elderly male, Alert and oriented x1-2, no acute distress HEENT: Normocephalic, face symmetric, pupils equal round reactive to light, extraocular movements intact, sclerae anicteric, conjunctiva mildly injected, right greater than left, nares patent, oropharynx reveals an intact soft and hard palate with moist mucous membranes, dentition is fair NECK: Supple, no lymphadenopathy, thyroid without enlargement or nodularity, carotids no bruits CHEST: Respiratory excursions symmetric, diminished but clear to auscultation bilaterally CV: Irregular, no murmurs, rubs, gallops, PMI difficult to appreciate ABD: Soft, nontender, nondistended, bowel sounds present in all 4 quadrants, no organomegaly or masses appreciated EXTR: Warm, well perfused, no clubbing/cyanosis/2+ ankle edema, trace pretibial edema bilaterally SKIN: Warm and dry, without rash NEURO: Alert and oriented x1-2, grossly intact PSYCH: Mood and affect is within normal limits, judgment and insight are poor Objective Labs 09/04/24 12:10 09/04/24 12:10 Labs: Laboratory Results - last 24 hr 09/04/24 09/04/24 09/04/24 12:10 13:37 14:59 WBC 9.2 RBC 2.97 L Hgb 9.8 L Hct 29.1 L MCV 97.9 MCH 33.1 MCHC 33.8 RDW 15.9 H Plt Count 261 Neut % (Auto) 68.2 Lymph % (Auto) 18.0 L Cotton % (Auto) 8.8 Eos % (Auto) 4.4 H Baso % (Auto) 0.6 Neut # (Auto) 6300 Lymph # (Auto) 1600 Cotton # (Auto) 800 Eos # (Auto) 400 Baso # (Auto) 100 PT 12.5 INR 1.1 APTT 23 L Sodium 135 L Potassium 3.7 Chloride 104 Carbon Dioxide 21 L BUN 41 H Creatinine 2.14 H Estimated GFR 29 L BUN/Creatinine Ratio 19.2 Glucose 123 H Calcium 8.3 L Magnesium 1.2 L Total Bilirubin 0.5 AST 38 ALT 18 Alkaline Phosphatase 52 Total Creatine Kinase 104 Troponin I 2.560 H* NT-Pro-B Natriuret Pep 44770 H Total Protein 6.3 Albumin 3.6 Globulin 2.7 Albumin/Globulin Ratio 1.3 Lipase 68 Urine Color Yellow Urine Appearance Cloudy Urine pH 5.5 Ur Specific [place] <=1.005 Urine Protein Negative Urine Glucose (UA) Negative Urine Ketones Negative Urine Occult Blood 3+ H Urine Nitrate Negative Urine Bilirubin Negative Urine Urobilinogen 0.2 Ur Leukocyte Esterase 3+ H D Urine RBC 1-5/hpf D Urine WBC 30-100/hpf H Ur Squamous Epith Cells None seen Ur Transition Epith Cell 0-1/hpf Amorphous Sediment 1+ Urine Bacteria Moderate (10-30) H Urine Mucus 1+ H Ur Culture Indicated? Specimen cultured Vol Urine Centrifuged 10ml (spun) Fluid Color Cancelled Fluid Appearance Cancelled Fluid RBC Cancelled Fld Tot Nucleated Cell Cancelled Fluid Neutrophils % Cancelled Fluid Lymphocytes % Cancelled Fluid Eosinophils % Cancelled Fluid Basophils % Cancelled Fluid Meso/Macro/[place]otton % Cancelled Fluid Abnormal Cells Cancelled Body Fluid Clot Cancelled Fluid Comment Cancelled 09/04/24 16:02 WBC RBC Hgb Hct MCV MCH MCHC RDW Plt Count Neut % (Auto) Lymph % (Auto) Cotton % (Auto) Eos % (Auto) Baso % (Auto) Neut # (Auto) Lymph # (Auto) Cotton # (Auto) Eos # (Auto) Baso # (Auto) PT INR APTT Sodium Potassium Chloride Carbon Dioxide BUN Creatinine Estimated GFR BUN/Creatinine Ratio Glucose Calcium Magnesium Total Bilirubin AST ALT Alkaline Phosphatase Total Creatine Kinase Troponin I 2.350 H* NT-Pro-B Natriuret Pep Total Protein Albumin Globulin Albumin/Globulin Ratio Lipase Urine Color Urine Appearance Urine pH Ur Specific [place] Urine Protein Urine Glucose (UA) Urine Ketones Urine Occult Blood Urine Nitrate Urine Bilirubin Urine Urobilinogen Ur Leukocyte Esterase Urine RBC Urine WBC Ur Squamous Epith Cells Ur Transition Epith Cell Amorphous Sediment Urine Bacteria Urine Mucus Ur Culture Indicated? Vol Urine Centrifuged Fluid Color Fluid Appearance Fluid RBC Fld Tot Nucleated Cell Fluid Neutrophils % Fluid Lymphocytes % Fluid Eosinophils % Fluid Basophils % Fluid Meso/Macro/[place]ot[place] % Fluid Abnormal Cells Body Fluid Clot Fluid Comment Assessment & Plan Assessment & Plan narrative: 1. Acute kidney injury with oliguria Suspect secondary to poor oral intake in the setting of UTI and urinary retention initially. He now has 400 cc of dilute appearing urine in his Nguyễn bag since receiving fluids in the ED. 1 L fluid bolus was ordered in the ED. Given his elevated BNP, I am going to slow that down to 100 cc/hour until that bag is complete and then saline lock his IV as he is at risk for congestive heart failure based on both his BNP, chest x-ray findings, and troponin bump. Certainly, he was hypotensive on arrival to the ED and that is improved with IV fluids. He likely has some degree of intravascular volume depletion with 3rd spacing secondary to some congestive heart failure. Will hold metformin, his ARB, and recheck labs in the morning. Await renal ultrasound findings. 2. Serratia UTI Will resume ciprofloxacin, but will decrease to 250 mg b.i.d. for renally dosing. 3. NSTEMI EKG was reviewed which appears essentially unchanged compared to previous EKG from approximately 1 year ago. He does have a right bundle branch block, sinus rhythm with frequent PVCs. He was noted to have significant hypomagnesemia and this is being repleted as noted below. This will likely help with his PVCs. Echocardiogram has been ordered for the morning to assess for any wall motion abnormalities or global LV dysfunction. 4. Hypomagnesemia As noted, he is having some ectopy as noted on his EKG. Will place on telemetry. Will replete with IV magnesium. Recheck in the morning. 5. Anemia Normocytic. His hemoglobin has gradually been trending down since July of last year, at which time it was 12.0. He has no evidence of any GI bleeding. 6. Elevated BNP, possible congestive heart failure Patient did have a significantly elevated BNP, some left-sided pleural effusion with cardiomegaly on chest x-ray and some ankle edema bilaterally. He has no crackles on examination. He has no dyspnea. Certainly given the degree of BNP elevation along with his elevated troponin, he is at risk for cardiomyopathy. There is no prior echocardiogram on file. Await echocardiogram in the morning. 7. Cerebrovascular disease and associated dementia Patient has cerebral angiopathy diagnosed in May of 2021. He does have cognitive deficits. There has been some discussion with the patient's spouse for consideration of placement. Would benefit from social work/discharge planning assessment to determine whether this would be indicated at this time. 8. Diabetes mellitus type [address] on fingersticks and sliding scale as well as controlled carb diet. 9. Hypertension Continue amlodipine. Hold losartan given his LUIS. 10. Hyperlipidemia On simvastatin on an outpatient basis 11. GERD On pantoprazole on an outpatient basis. Await medication reconciliation Code status Will be full code by default for now. However, he does have an advanced directive scanned into [employer] that does state he would like to be DNR in the event of a terminal prognosis of [address] or less[address] Prophylaxis Will place on heparin Disposition Admit to acute inpatient medical floor Time-Based Coding :: [TOTAL MINUTES] spent with patient and on the chart (including review of chart, obtaining history, exam, reviewing outside data, placing orders, documenting exam and treatment plan, and counseling patient) on [DATE]. Quality VTE Deep Vein Thrombosis/Pulmonary Embolism Present on Admission: No
[2024-09-04] MEDS: CIPROFLOXACIN 250 MG TABLET 500 MG PO (21:17)
[2024-09-04] MEDS: HEPARIN 5,000 UNIT/ML VIAL 5000 UNIT SUBCUT (21:17)
[2024-09-05] VITALS: BP 96/54; PULSE 64; RESP 16; TEMP 36.2; O2SAT 94
[2024-09-05 04:00] VITALS: BP 106/64; PULSE 69; RESP 20; TEMP 36.3; O2SAT 93
[2024-09-05 06:03] LABS: Add Manual Diff / Slide Review NO; Basophils Absolute Auto 100 /uL (0-100); Basophils Percent Auto 0.8 % (0-2); Eosinophils Absolute Auto 500 /uL (0-450); Eosinophils Percent Auto 6.3 % (2-4); Hematocrit 28.3 % (41-53); Hemoglobin 9.8 g/dL (13.5-17.5); Lymphocytes Absolute Auto 1700 /uL (1100-4500); Lymphocytes Percent Auto 20.3 % (25-40); Mean Corpuscular HGB Conc 34.7 % (30-36); Mean Corpuscular Hemoglobin 33.9 PG (26-34); Mean Corpuscular Volume 97.8 fL (80-100); Monocytes Absolute Auto 900 /uL (0-900); Monocytes Percent Auto 10.7 % (3-14); Neutrophils Absolute Auto 5100 /uL (1500-7000); Neutrophils Percent Auto 61.9 % (50-75); Platelet Count 252 X10^3/uL (150-400); White Blood Cell Count 8.3 X10^3/uL (4.5-11.0)
[2024-09-05 06:16] LABS: BUN Creatinine Ratio 22.2 (6-22); Blood Urea Nitrogen 34 mg/dL (9-20); Calcium 8.6 mg/dL (8.4-10.2); Carbon Dioxide 22 mmol/L (22-32); Chloride 108 mmol/L (98-107); Estimated Glomerular Filt Rate 43 mL/min (>60); Glucose 106 mg/dL (80-110); HEMOLYSIS < 15 (0-50); Potassium 3.8 mmol/L (3.4-5.1); Sodium 139 mmol/L (137-145)
--- NOTE | 2024-09-05 07:55 | PM.PN.1 ---
Subjective Subjective Interval history: Summary: 89-year-old gentleman with remote history of prostate cancer with residual urethral stricture who had his chronic indwelling Nguyễn catheter removed in June of 2024. He had been doing well on a combination of Flomax, finasteride, and myrbetriq at that time. myrbetriq was subsequently either discontinued or reduced in dose (spouse is a bit fuzzy on the details). He reportedly was in for follow-up postvoid residual nurse visits in June as well as late July. But up both of those visits, he had no significant postvoid residuals. He recently developed increasing difficulty with emptying his bladder. He has been having to force the urine out. He would typically move his bowels at the same time as urinating due to the amount of pushing he had to do. He evidently saw Dr. Abel last week and was found to have a UTI. It was noted in that visit that he had had a UTI with a urine culture on August 29 for which he was placed on Cipro. It appears on August 30, patient was restarted on myrbetriq [address] Abel also recommended the patient see Dr. Crespo for consideration of placement due to his increasing care needs. He was seen by Dr. Crespo on September 01 for his routine 3 month follow-up. Lab work was ordered inclusive of a BMP, CBC, and hemoglobin A1c. Labs revealed a hemoglobin of 10.7, BUN 25, creatinine 1.44, hemoglobin A1c was 6.8%. At baseline, creatinine is 1.0. Patient presented to the emergency department on September 03 secondary to inability to empty his bladder since the evening prior. Approximately 400 cc of urine drained. It was clear, nonbloody, no clot. UA was negative. Labs were deferred secondary to them having been done just on the afternoon of September 01. After the Nguyễn catheter was placed, they return home. Patient's spouse reports that very little urine drain. She attempted to get him to drink fluids, but it was quite difficult. Her neighbor was able to get him to take approximately 2 cups of fluid via spoon through the day yesterday. Spouse notes that he did have a trickle of urine after that. Quickly, she was able to get him to drink 2 cups of fluid last night. Again she was able to get a trickle of urine. However, this morning she noticed that there was no urine draining from the catheter. She subsequently brought him back into the emergency department due to concerns about no urine output. A bladder scan was done which revealed no urine in the bladder. On arrival, temp was 98.3?, heart rate 61, respiratory rate 16, BP 86/54, O2 sats 97% on room air. After receiving a gentle fluid bolus, blood pressures did come up to the low 100s systolic. Labs revealed a white blood cell count of 9.2, hemoglobin 9.8, platelets of 261. Chemistry revealed a sodium of 135, potassium 3.7, BUN of 41 up from 25 on September 01, creatinine up to 2.14. Glucose was 123. Magnesium was low at 1.2. Initial troponin was elevated at 2.56, follow-up was improved at 2.35. BNP was 89308. UA revealed 3+ blood 3+ leukocyte esterase 30-100 white cells per high-powered field, moderate bacteria and 1+ mucus. Chest x-ray revealed cardiomegaly with a left-sided pleural effusion. Mild interstitial prominence can be seen. May be related to pulmonary edema versus artifact. CHF should be considered. A renal ultrasound was ordered by the ED as well. Patient reports he does not have much of an appetite. He denies any chest pain/tightness/pressure. Denies any shortness of breath. No nausea. No abdominal pain. His notes that typically he is up and ambulatory. He helps his with the dishes and dusting. He does move about the rooms of his home. Over the last week he has not been doing those usual activities. She has not noted any specific leg edema. S: I met with he in his . He was having delirium hallucinations she notes. He has been diagnosed with dementia recently. They have been for 67 years. He does not know where he was and denies any pain. He appeared to be dehydrated upon arrival. Unfortunately, he was echo revealed systolic dysfunction with an EF of 25%. His troponin is mildly elevated at 1.5. He denies chest pain. Exam Vital Signs (past 8 hours): - 09/05/24 00:00 09/05/24 04:00 Temperature 97.1 F L 97.3 F L Pulse Rate 64 69 Respiratory Rate 16 20 Blood Pressure 96/54 L 106/64 Pulse Oximetry 94 93 Oxygen Flow Rate 0 0 Oxygen Delivery Method Room Air Oxygen Flow Rate 0 Narrative Exam Narrative: NAD, alert and oriented to person. Fluent speech. He was confused and having some hallucinations. Lungs are clear, normal rate and effort. Heart is regular, no murmur gallop or rub. Abdomen is soft, non distended. Extremities are free of edema. Objective ECG Impression: Sinus rhythm with frequent and consecutive premature ventricular complexes Right bundle branch block Inferior infarct , age undetermined T wave abnormality, consider lateral ischemia Labs 09/05/24 05:27 09/05/24 05:27 Labs: Laboratory Results - last 24 hr 09/04/24 09/04/24 09/04/24 12:10 13:37 14:59 WBC 9.2 RBC 2.97 L Hgb 9.8 L Hct 29.1 L MCV 97.9 MCH 33.1 MCHC 33.8 RDW 15.9 H Plt Count 261 Neut % (Auto) 68.2 Lymph % (Auto) 18.0 L [place] % (Auto) 8.8 Eos % (Auto) 4.4 H Baso % (Auto) 0.6 Neut # (Auto) 6300 Lymph # (Auto) 1600 [place] # (Auto) 800 Eos # (Auto) 400 Baso # (Auto) 100 PT 12.5 INR 1.1 APTT 23 L Sodium 135 L Potassium 3.7 Chloride 104 Carbon Dioxide 21 L BUN 41 H Creatinine 2.14 H Estimated GFR 29 L BUN/Creatinine Ratio 19.2 Glucose 123 H Calcium 8.3 L Magnesium 1.2 L Total Bilirubin 0.5 AST 38 ALT 18 Alkaline Phosphatase 52 Total Creatine Kinase 104 Troponin I 2.560 H* NT-Pro-B Natriuret Pep 50265 H Total Protein 6.3 Albumin 3.6 Globulin 2.7 Albumin/Globulin Ratio 1.3 Lipase 68 Urine Color Yellow Urine Appearance Cloudy Urine pH 5.5 Ur Specific [place] <=1.005 Urine Protein Negative Urine Glucose (UA) Negative Urine Ketones Negative Urine Occult Blood 3+ H Urine Nitrate Negative Urine Bilirubin Negative Urine Urobilinogen 0.2 Ur Leukocyte Esterase 3+ H D Urine RBC 1-5/hpf D Urine WBC 30-100/hpf H Ur Squamous Epith Cells None seen Ur Transition Epith Cell 0-1/hpf Amorphous Sediment 1+ Urine Bacteria Moderate (10-30) H Urine Mucus 1+ H Ur Culture Indicated? Specimen cultured Vol Urine Centrifuged 10ml (spun) Fluid Color Cancelled Fluid Appearance Cancelled Fluid RBC Cancelled Fld Tot Nucleated Cell Cancelled Fluid Neutrophils % Cancelled Fluid Lymphocytes % Cancelled Fluid Eosinophils % Cancelled Fluid Basophils % Cancelled Fluid Meso/Macro/Clearwater % Cancelled Fluid Abnormal Cells Cancelled Body Fluid Clot Cancelled Fluid Comment Cancelled 09/04/24 09/05/24 16:02 05:27 WBC 8.3 RBC 2.90 L Hgb 9.8 L Hct 28.3 L MCV 97.8 MCH 33.9 MCHC 34.7 RDW 16.0 H Plt Count 252 Neut % (Auto) 61.9 Lymph % (Auto) 20.3 L [place] % (Auto) 10.7 Eos % (Auto) 6.3 H Baso % (Auto) 0.8 Neut # (Auto) 5100 Lymph # (Auto) 1700 [place] # (Auto) 900 Eos # (Auto) 500 H Baso # (Auto) 100 PT INR APTT Sodium 139 Potassium 3.8 Chloride 108 H Carbon Dioxide 22 BUN 34 H Creatinine 1.53 H Estimated GFR 43 L BUN/Creatinine Ratio 22.2 H Glucose 106 Calcium 8.6 Magnesium Total Bilirubin AST ALT Alkaline Phosphatase Total Creatine Kinase Troponin I 2.350 H* 1.610 H* NT-Pro-B Natriuret Pep Total Protein Albumin Globulin Albumin/Globulin Ratio Lipase Urine Color Urine Appearance Urine pH Ur Specific [place] Urine Protein Urine Glucose (UA) Urine Ketones Urine Occult Blood Urine Nitrate Urine Bilirubin Urine Urobilinogen Ur Leukocyte Esterase Urine RBC Urine WBC Ur Squamous Epith Cells Ur Transition Epith Cell Amorphous Sediment Urine Bacteria Urine Mucus Ur Culture Indicated? Vol Urine Centrifuged Fluid Color Fluid Appearance Fluid RBC Fld Tot Nucleated Cell Fluid Neutrophils % Fluid Lymphocytes % Fluid Eosinophils % Fluid Basophils % Fluid Meso/Macro/[place] % Fluid Abnormal Cells Body Fluid Clot Fluid Comment [facility] Medical History History of urinary tract infection History of urinary retention Urinary tract infection Urinary frequency Slow transit constipation History of radioisotope therapy Dementia Depression, major, recurrent Incomplete emptying of bladder Urethral stricture High blood pressure Hematuria Obstructive sleep apnea Overweight Personal history of malignant neoplasm of prostate Open angle with borderline findings, low risk, bilateral Trigeminal neuralgia Unspecified lack of coordination Chronic gout, unspecified, without tophus (tophi) Mixed hyperlipidemia Essential hypertension Polyneuropathy, unspecified Type 2 diabetes mellitus with diabetic neuropathy, unspecified Cerebral amyloid angiopathy Nontraumatic intracranial hemorrhage, unspecified Vitiligo Actinic keratosis Pneumonia Pneumothorax Stroke Gout Mumps Measles Chicken pox Vertigo Hearing loss Cataracts, bilateral Hemorrhoid GERD (gastroesophageal reflux disease) Skin cancer Prostate cancer Type 2 diabetes mellitus Surgical History History of prostate biopsy Anesthesia History of eye surgery History of cataract removal with insertion of prosthetic lens (~1999) History of tonsillectomy (~1947) H/O blepharoplasty Family History Father History of heart disease Mother Stroke Brother Cancer Hypertension Hearing impairment Sister Cancer Stroke Hypertension Social History marital status: number of children: 2 household members: spouse Smoking Status: Former smoker alcohol intake: current Type(s) of exercise: other frequency: 1-2 times per week Assessment & Plan Assessment & Plan narrative: 1. Acute kidney injury with oliguria (dehydration) Suspect secondary to poor oral intake in the setting of UTI and urinary retention initially. He now has 400 cc of dilute appearing urine in his Nguyễn bag since receiving fluids in the ED. 1 L fluid bolus was ordered in the ED. Given his elevated BNP, I am going to slow that down to 100 cc/hour until that bag is complete and then saline lock his IV as he is at risk for congestive heart failure based on both his BNP, chest x-ray findings, and troponin bump. Certainly, he was hypotensive on arrival to the ED and that is improved with IV fluids. He likely has some degree of intravascular volume depletion with 3rd spacing secondary to some congestive heart failure. Will hold metformin, his ARB, and recheck labs in the morning. Await renal ultrasound findings. 2. Serratia UTI, present on admission and active. Will resume ciprofloxacin, but will decrease to 250 mg b.i.d. for renally dosing. 3. NSTEMI, present on admission and active. EKG was reviewed which appears essentially unchanged compared to previous EKG from approximately 1 year ago. He does have a right bundle branch block, sinus rhythm with frequent PVCs. He was noted to have significant hypomagnesemia and this is being repleted as noted below. This will likely help with his PVCs. Echocardiogram has been ordered for the morning to assess for any wall motion abnormalities or global LV dysfunction. 4. Hypomagnesemia, present on admission and improved. As noted, he is having some ectopy as noted on his EKG. Will place on telemetry. Will replete with IV magnesium. Recheck in the morning. 5. Anemia, stable. Normocytic. His hemoglobin has gradually been trending down since July of last year, at which time it was 12.0. He has no evidence of any GI bleeding. 6. Acute systolic heart failure by echo, present on admission and active. Patient did have a significantly elevated BNP, some left-sided pleural effusion with cardiomegaly on chest x-ray and some ankle edema bilaterally. He has no crackles on examination. He has no dyspnea. C 7. Cerebrovascular disease and associated dementia, stable. Patient has cerebral angiopathy diagnosed in May of 2021. He does have cognitive deficits. There has been some discussion with the patient's spouse for consideration of placement. Would benefit from social work/discharge planning assessment to determine whether this would be indicated at this time. 8. Diabetes mellitus type 2, stable. Well controlled. Will place on fingersticks and sliding scale as well as controlled carb diet. 9. Hypertension, stable. Continue amlodipine. Hold losartan given his LUIS. 10. Hyperlipidemia, stable. On simvastatin on an outpatient basis 11. GERD, stable. On pantoprazole on an outpatient basis. Await medication reconciliation PLAN: -monitor UOP. -ECHO complete, results above. -review cardiac medications -start low-dose beta blockade. -start statin. Code status Will be full code by default for now. However, he does have an advanced directive scanned into [employer] that does state he would like to be DNR in the event of a terminal prognosis of [address] or less. Prophylaxis Will place on heparin Disposition: unclear. He and his live in a house in [place]. She is looking at caregivers. Time-Based Coding :: [TOTAL MINUTES] spent with patient and on the chart (including review of chart, obtaining history, exam, reviewing outside data, placing orders, documenting exam and treatment plan, and counseling patient) on [DATE]. Quality VTE Deep Vein Thrombosis/Pulmonary Embolism Present on Admission: No
[2024-09-05 08:00] VITALS: BP 110/78; PULSE 63; RESP 18; TEMP 36.3; O2SAT 93
--- NOTE | 2024-09-05 08:00 | DI.ECHO.S_ITS ---
[place] [facility]+ [facility] : : [id number] [place] [address] : : [id number] : : Phone: [phone] Echocardiogram Report + + :Name: WOLF MEANS Study Date: 09/05/2024 Height: 67 in : :Hospital ReadingLocation: Weight: 168 lb : : Gender: Male BSA: 1.9 m2 : :: 1935 Age: 89 yrs BP: 106/64 mmHg: :Reason For Study: ACUTE IA : :Ordering Physician: MARGARET, : :ANDREW Performed By: Tara Jones : :Referring: ANDREW ROBLES : + + Interpretation Summary The ejection fraction is estimated to be 25-30%. The left ventricle is mild-moderately dilated. The LV lateral wall is akinetic. Grade II diastolic dysfunction. The right ventricular systolic function is normal. The right ventricular systolic pressure is estimated to be at least 35 mmHg based on an estimated right atrial pressure of 3 mm Hg. The left atrium is severely dilated. There is moderate mitral regurgitation. There is mild aortic stenosis. Procedure: A two-dimensional transthoracic echocardiogram with color flow and Doppler was performed. The study quality was technically adequate. There is no prior echocardiogram noted for this patient. The patient was in sinus rhythm with heart rates between 64-83 bpm during the exam. Left Ventricle: The left ventricle is mild-moderately dilated. There is normal left ventricular wall thickness. The ejection fraction is estimated to be 25-30%. The LV lateral wall is akinetic. Grade II diastolic dysfunction. Right Ventricle: The right ventricle is mildly dilated. The right ventricular systolic function is normal. Atria: The left atrium is severely dilated. Right atrial size is normal. The right atrium is mildly dilated. There is no Doppler evidence for an interatrial shunt. Mitral Valve: The mitral valve leaflets are mildly calcified. There is mild mitral annular calcification. There is moderate mitral regurgitation. Aortic Valve: The aortic valve is trileaflet. The aortic valve is moderately calcified. The peak aortic velocity is 1.7 m/sec. The aortic valve mean gradient is 6 mmHg. The calculated aortic valve area is 1.6 cm2. There is mild aortic stenosis. There is trace aortic regurgitation. Tricuspid Valve: The tricuspid valve leaflets are thin and pliable. There is mild tricuspid regurgitation. The right ventricular systolic pressure is estimated to be at least 35 mmHg based on an estimated right atrial pressure of 3 mm Hg. Pulmonic Valve: The pulmonic valve leaflets are thin and pliable; valve motion is normal. There is no pulmonic valvular regurgitation. Great Vessels: The aortic root is normal size. The dimensions of the ascending aorta are normal. The IVC is of normal diameter and collapses greater than 50% with a sniff. This suggests a low right atrial pressure of 3 mm Hg. Pericardium/ Pleura There is a trivial pericardial effusion noted. There is no pleural effusion. MMode/2D Measurements & Calculations LVIDd: 6.5 cm LVOT diam: 2.1 cm LVIDs: 5.9 cm Ao root diam: 3.2 cm FS: 9.9 % asc Aorta Diam: 3.4 cm EPSS: 2.2 cm Ao Arch Diam (Prox Trans): 3.0 cm IVSd: 0.96 cm LVPWd: 0.99 cm LV gray. diameter/BSA (cm/m^2): 3.5 LV sys. diameter/BSA (cm/m^2): 3.1 LA A2 area: 26.8 cm2 RA long axis: 6.1 cm LA A4 area: 32.4 cm2 RA area: 21.2 cm2 LA length (vol): 6.9 cm RA vol: 62.2 ml LA vol: 107.3 ml RA : 33.1 ml/m2 LA vol index: 57.1 ml/m2 IVC diam: 2.0 cm RVD1 (basal): 4.2 cm RVD2 (mid): 3.3 cm TAPSE: 2.3 cm Doppler Measurements & Calculations Ao V2 max: 170.9 cm/sec LVOT Max Raza: 74.4 cm/sec Ao V2 mean: 116.3 cm/sec LV V1 max P.2 mmHg Ao max P.7 mmHg LV V1 VTI: 13.8 cm Ao mean P.9 mmHg SEEMA(I,D): 1.6 cm2 Ao V2 VTI: 32.1 cm SEEMA(V,D): 1.6 cm2 sev ratio: 0.43 SEEMA indexed to BSA (cm^2/m^2): 0.83 MV E max raza: 83.4 cm/sec TR max raza: 282.3 cm/sec MV A max raza: 93.6 cm/sec TR max P.9 mmHg MV E/A: 0.89 PA V2 max: 85.1 cm/sec Med Peak E' Raza: 5.4 cm/sec PA V2 mean: 61.4 cm/sec E/E' med: 15.4 PA mean P.7 mmHg Lat Peak E' Raza: 8.1 cm/sec PA pr(Accel): 49.5 mmHg E/E' lat: 10.3 E/e' average: 12.9 MV dec time: 0.23 sec MR ERO: 0.23 cm2 MR PISA: 3.8 cm2 SV(LVOT): 49.9 ml MR flow rate: 118.5 cm3/sec MR PISA radius: 0.78 cm Reading Physician:10:09 AM
[2024-09-05] MEDS: HEPARIN 5,000 UNIT/ML VIAL 5000 UNIT SUBCUT ×2 (09:17→22:09)
[2024-09-05] MEDS: FINASTERIDE 5 MG TABLET PO (09:17)
[2024-09-05] MEDS: AMLODIPINE 5 MG TABLET 10 MG PO (09:18)
[2024-09-05] MEDS: SODIUM CHLORIDE 0.9% FLUSH 10 ML IV ×2 (10:00→22:10)
[2024-09-05] MEDS: BRIMONIDINE TIMOLOL 1 EACH EYE-RIGHT ×2 (10:00→22:09)
[2024-09-05 12:00] VITALS: BP 106/69; PULSE 67; RESP 12; TEMP 36.3; O2SAT 94
[2024-09-05] MEDS: INSULIN LISPRO 100 UNIT/ML 3ML VIAL SUBCUT (12:45)
[2024-09-05] MEDS: CIPROFLOXACIN 250 MG TABLET 500 MG PO ×2 (13:48→22:08)
[2024-09-05] MEDS: METOPROLOL IR 25 MG TABLET 12.5 MG PO (13:48)
--- NOTE | 2024-09-05 14:58 | CM.DANOTE ---
Addendum entered by FERNANDO Ch 09/05/24 15:25: Per Pippa at [facility], should be good to accept pt back for services. DANO Original Note: DCP Assessment note pt is an 89yo M admitted with LUIS/UTI. urinary retention. PMH Of dementia, pt is mostly total care, caregiver is Daly. PCP [place] Payer Jose Medicare and self pay PARKER reviewed EMR. per provider in morning rounds, RUSSEL unknown, likely another few days. per chart review, pt seeing some hallucinations at this time. PT/OT evals pending. PARKER met with pt and spouse in room. pt pleasant but only oriented to self. mostly met with spouse Daly. Daly reports they lives together in [facility], [place] set up with no stairs and disability friendly. DME walker/shower chair, no steps. hx of [facility], want to resume at ar if possible. currently has 3hrs/week of PP CG from visiting [facility], spouse looking to either increase care with [facility] or alternative CGs. PARKER gave spouse senior resources booklet for additional PP CG information. does not think she needs to expedite hiring PP CGs for this dc. PARKER emailed new referral to [facility]. Need f2f/order. P: Pending medical stability/PT/OT evals, anticipate return home with [facility] pending acceptance. CM team will continue to follow closely for DCP coordination FERNANDO hC Discharge Planning/Care Management CM Discharge Assessment Start: 09/05/24 14:55 Freq: Status: Active Protocol: Document 09/05/24 14:55 DANO (Rec: 09/05/24 14:57 [id number]) Discharge Planning Assessment Assigned [facility] FERNANDO Etienne DPOA/Assigned Designee Name Daly, spouse Contact Information [phone] Advance Directives? Yes: DPOA for HC/Nomination of guardian Advance Directives on File Yes History Provided By Patient Prior Living Arrangements House Household Members spouse Type of transporation used prior to Relies on Others admit Independent with ADL's No Is patient alert and oriented? No Needs Assistance With Bathing,Grooming,Meal Prep, Toileting,Managing Medications ,Home Chores / Shopping Comment [facility] for one day per week 3 hours DME Already Rented / Owned Bath Bench,FWW / Walker Patient/Family Preference Home with Home Health Discharge Plan Home with Home Health Transportation Arrangement family in POV SNF/HH Preference Jie HELLER Whiteboard Updated in Patient Room with Yes name and ext. # of [facility] Review Status In Process Please Provide Date Initial DC 09/05/24 Assessment Was Performed Next Review Type Continued Stay Review
[2024-09-05 16:00] VITALS: BP 100/52; PULSE 62; RESP 12; TEMP 36.4; O2SAT 95
--- NOTE | 2024-09-05 16:30 | PT-IP ANOTE ---
PT checks in on pt who is lethargic and has eyes focused upwards and does not make eye contact with PT. reports he is confused. Will con't PT efforts next date.
[2024-09-05] MEDS: SODIUM CHLORIDE 0.9% 500 ML 1000 ML IV (17:24)
[2024-09-05 20:00] VITALS: BP 111/66; PULSE 72; RESP 20; TEMP 36.6; O2SAT 95
[2024-09-05] MEDS: ATORVASTATIN 20 MG TABLET 40 MG PO (22:08)
[2024-09-05] MEDS: ROCKLATAN 1 EACH EYE-RIGHT (22:11)
[2024-09-06 01:12] VITALS: BP 106/66; PULSE 64; RESP 16; TEMP 37.1; O2SAT 94
[2024-09-06 05:51] LABS: Add Manual Diff / Slide Review NO; Basophils Absolute Auto 0 /uL (0-100); Basophils Percent Auto 0.6 % (0-2); Eosinophils Absolute Auto 300 /uL (0-450); Eosinophils Percent Auto 4.3 % (2-4); Hematocrit 29.9 % (41-53); Hemoglobin 10.3 g/dL (13.5-17.5); Lymphocytes Absolute Auto 1800 /uL (1100-4500); Lymphocytes Percent Auto 23.9 % (25-40); Mean Corpuscular HGB Conc 34.5 % (30-36); Mean Corpuscular Hemoglobin 33.8 PG (26-34); Mean Corpuscular Volume 97.9 fL (80-100); Monocytes Absolute Auto 900 /uL (0-900); Monocytes Percent Auto 11.2 % (3-14); Neutrophils Absolute Auto 4600 /uL (1500-7000); Platelet Count 254 X10^3/uL (150-400); Red Blood Cell Count 3.05 X10^6/uL (4.5-5.9); Red Cell Distribution Width 15.9 % (11.6-14.8); White Blood Cell Count 7.7 X10^3/uL (4.5-11.0)
[2024-09-06 06:00] VITALS: BP 112/68; PULSE 49; RESP 12; TEMP 36.6; O2SAT 97
[2024-09-06 06:05] LABS: BUN Creatinine Ratio 18.6 (6-22); Blood Urea Nitrogen 24 mg/dL (9-20); Calcium 8.6 mg/dL (8.4-10.2); Carbon Dioxide 21 mmol/L (22-32); Chloride 109 mmol/L (98-107); Estimated Glomerular Filt Rate 53 mL/min (>60); Glucose 102 mg/dL (80-110); HEMOLYSIS < 15 (0-50); Potassium 3.4 mmol/L (3.4-5.1); Sodium 138 mmol/L (137-145)
--- NOTE | 2024-09-06 07:38 | PM.PN.1 ---
Subjective Subjective Interval history: S: He was confused, but he does deny chest pain or dyspnea. He has been having hallucinations. Exam Vital Signs (past 8 hours): - 09/06/24 01:12 09/06/24 06:00 Temperature 98.7 F 97.8 F Pulse Rate 64 49 L Respiratory Rate 16 12 Blood Pressure 106/66 112/68 Pulse Oximetry 94 97 Oxygen Flow Rate 0 Oxygen Delivery Method Room Air Oxygen Flow Rate 0 Narrative Exam Narrative: NAD, alert and oriented to self but not place. Fluent speech. Lungs are clear, normal rate and effort. Heart is regular, no murmur gallop or rub. Abdomen is soft, non distended. Extremities are free of edema. Objective Labs 09/06/24 04:58 09/06/24 04:58 Labs: Laboratory Results - last 24 hr 09/06/24 04:58 WBC 7.7 RBC 3.05 L Hgb 10.3 L Hct 29.9 L MCV 97.9 MCH 33.8 MCHC 34.5 RDW 15.9 H Plt Count 254 Neut % (Auto) 60.0 Lymph % (Auto) 23.9 L [place] % (Auto) 11.2 Eos % (Auto) 4.3 H Baso % (Auto) 0.6 Neut # (Auto) 4600 Lymph # (Auto) 1800 [place] # (Auto) 900 Eos # (Auto) 300 Baso # (Auto) 0 Sodium 138 Potassium 3.4 Chloride 109 H Carbon Dioxide 21 L BUN 24 H Creatinine 1.29 H Estimated GFR 53 L BUN/Creatinine Ratio 18.6 Glucose 102 Calcium 8.6 PFSH Medical History History of urinary tract infection History of urinary retention Urinary tract infection Urinary frequency Slow transit constipation History of radioisotope therapy Dementia Depression, major, recurrent Incomplete emptying of bladder Urethral stricture High blood pressure Hematuria Obstructive sleep apnea Overweight Personal history of malignant neoplasm of prostate Open angle with borderline findings, low risk, bilateral Trigeminal neuralgia Unspecified lack of coordination Chronic gout, unspecified, without tophus (tophi) Mixed hyperlipidemia Essential hypertension Polyneuropathy, unspecified Type 2 diabetes mellitus with diabetic neuropathy, unspecified Cerebral amyloid angiopathy Nontraumatic intracranial hemorrhage, unspecified Vitiligo Actinic keratosis Pneumonia Pneumothorax Stroke Gout Mumps Measles Chicken pox Vertigo Hearing loss Cataracts, bilateral Hemorrhoid GERD (gastroesophageal reflux disease) Skin cancer Prostate cancer Type 2 diabetes mellitus Surgical History History of prostate biopsy Anesthesia History of eye surgery History of cataract removal with insertion of prosthetic lens (~1999) History of tonsillectomy (~1947) H/O blepharoplasty Family History Father History of heart disease Mother Stroke Brother Cancer Hypertension Hearing impairment Sister Cancer Stroke Hypertension Social History marital status: number of children: 2 household members: spouse Smoking Status: Former smoker alcohol intake: current Type(s) of exercise: other frequency: 1-2 times per week Assessment & Plan Assessment & Plan narrative: 1. Acute kidney injury with oliguria (dehydration), present on admission and active. Suspect secondary to poor oral intake in the setting of UTI and urinary retention initially. He now has 400 cc of dilute appearing urine in his Nguyễn bag since receiving fluids in the ED. 1 L fluid bolus was ordered in the ED. Given his elevated BNP, I am going to slow that down to 100 cc/hour until that bag is complete and then saline lock his IV as he is at risk for congestive heart failure based on both his BNP, chest x-ray findings, and troponin bump. Certainly, he was hypotensive on arrival to the ED and that is improved with IV fluids. He likely has some degree of intravascular volume depletion with 3rd spacing secondary to some congestive heart failure. Will hold metformin, his ARB, and recheck labs in the morning. Await renal ultrasound findings. 2. Serratia UTI, present on admission and active. Will resume ciprofloxacin, 500 BID (rebal function improved). 3. NSTEMI, present on admission and active. EKG was reviewed which appears essentially unchanged compared to previous EKG from approximately 1 year ago. He does have a right bundle branch block, sinus rhythm with frequent PVCs. He was noted to have significant hypomagnesemia and this is being repleted as noted below. This will likely help with his PVCs. Echocardiogram has been ordered for the morning to assess for any wall motion abnormalities or global LV dysfunction. 4. Hypomagnesemia, present on admission and improved. As noted, he is having some ectopy as noted on his EKG. Will place on telemetry. Will replete with IV magnesium. Recheck in the morning. 5. Anemia, stable. Normocytic. His hemoglobin has gradually been trending down since July of last year, at which time it was 12.0. He has no evidence of any GI bleeding. 6. Acute systolic heart failure by echo, present on admission and active. Patient did have a significantly elevated BNP, some left-sided pleural effusion with cardiomegaly on chest x-ray and some ankle edema bilaterally. He has no crackles on examination. He has no dyspnea. C 7. Cerebrovascular disease and associated dementia, stable. Patient has cerebral angiopathy diagnosed in May of 2021. He does have cognitive deficits. There has been some discussion with the patient's spouse for consideration of placement. Would benefit from social work/discharge planning assessment to determine whether this would be indicated at this time. 8. Diabetes mellitus type 2, stable. Well controlled. Will place on fingersticks and sliding scale as well as controlled carb diet. 9. Hypertension, stable. Continue amlodipine. Hold losartan given his LUIS. 10. Hyperlipidemia, stable. On simvastatin on an outpatient basis 11. GERD, stable. On pantoprazole on an outpatient basis. Await medication reconciliation PLAN: -monitor UOP. -continue cardiac medications -continue low-dose beta blockade. -continue statin. - prefers to bring him home with additional help rather than a facility with his current memory issues. We will discuss the specifics with her. RUSSEL: 1-2 days. May start a low-dose Seroquel HS tonight. We will ask her about this 1st. Code status Will be full code by default for now. However, he does have an advanced directive scanned into [employer] that does state he would like to be DNR in the event of a terminal prognosis of 1 year or less. Prophylaxis Will place on heparin Time-Based Coding :: [TOTAL MINUTES] spent with patient and on the chart (including review of chart, obtaining history, exam, reviewing outside data, placing orders, documenting exam and treatment plan, and counseling patient) on [DATE]. Quality VTE Deep Vein Thrombosis/Pulmonary Embolism Present on Admission: No
[2024-09-06 08:00] VITALS: BP 117/66; PULSE 63; RESP 18; TEMP 36.4; O2SAT 91
[2024-09-06] MEDS: CIPROFLOXACIN 250 MG TABLET 500 MG PO ×2 (08:34→21:15)
[2024-09-06] MEDS: POTASSIUM CHLORIDE 20 MEQ TAB 40 MEQ PO (08:35)
[2024-09-06] MEDS: HEPARIN 5,000 UNIT/ML VIAL 5000 UNIT SUBCUT ×2 (08:56→21:14)
[2024-09-06] MEDS: FINASTERIDE 5 MG TABLET PO (08:57)
[2024-09-06] MEDS: BRIMONIDINE TIMOLOL 1 EACH EYE-RIGHT ×2 (09:42→21:15)
--- NOTE | 2024-09-06 10:20 | PT.IIE ---
Current Diagnoses Acute kidney failure, unspecified (09/04/24) Surgical History (Last Reviewed 09/05/24 @ 07:57 by Pa Joaquin MD) Anesthesia H/O blepharoplasty History of cataract removal with insertion of prosthetic lens (~1999) History of eye surgery History of prostate biopsy History of tonsillectomy (~1947) Medical History (Last Reviewed 09/05/24 @ 07:57 by Pa Joaquin MD) Actinic keratosis Cataracts, bilateral Cerebral amyloid angiopathy Chicken pox Chronic gout, unspecified, without tophus (tophi) Dementia Depression, major, recurrent Essential hypertension GERD (gastroesophageal reflux disease) Gout Hearing loss Hematuria Hemorrhoid High blood pressure History of radioisotope therapy History of urinary retention History of urinary tract infection Incomplete emptying of bladder Measles Mixed hyperlipidemia Mumps Nontraumatic intracranial hemorrhage, unspecified Obstructive sleep apnea Open angle with borderline findings, low risk, bilateral Overweight Personal history of malignant neoplasm of prostate Pneumonia Pneumothorax Polyneuropathy, unspecified Prostate cancer Skin cancer Slow transit constipation Stroke Trigeminal neuralgia Type 2 diabetes mellitus Type 2 diabetes mellitus with diabetic neuropathy, unspecified Unspecified lack of coordination Urethral stricture Urinary frequency Urinary tract infection Vertigo Vitiligo Physical Therapy Inpatient Evaluation/Re-Eval M1 PT/OT-IP Prior Functional Status Start: 09/05/24 15:56 Freq: NEEDED Status: Active Protocol: Document 09/06/24 10:20 AB (Rec: 09/06/24 12:42 AB [id number]) Medical Review Prior Functional Status Medical History Reviewed Yes Communication able to make needs known Mobility and Gait spouse provided pt's PLOF and home set up: spouse stated that pt requires supervision for safety but able to ambulate using a 4WW; spouse assists pt with dressing needs Social History Household Members spouse Number of Floors (Floors) One Floor Number of Stairs To Enter/Railing? no steps to enter Home Environment Standard Height Toilet,Walk in Shower Home Equipment Front Wheel Walker,Four Wheel Walker,Shower Seat with Backrest,Hand Held Shower,Grab Bars Near Toilet,Grab Bars In Shower Additional Social History Comment spouse stated that a caregiver comes in every fridays for ~ 3 hours to assist pt when spouse is away M2 PT-IP Current Condition Start: 09/05/24 15:56 Freq: NEEDED Status: Active Protocol: Document 09/06/24 10:20 AB (Rec: 09/06/24 12:42 AB [id number]) Physical Therapy Current Condition Current Condition Evaluation Date 09/06/24 Treatment Diagnosis UTI; LUIS; difficulty in walking Onset Date 09/04/24 M3 PT-IP Subjective Start: 09/05/24 15:56 Freq: NEEDED Status: Active Protocol: Document 09/06/24 10:20 AB (Rec: 09/06/24 12:42 AB [id number]) Subjective Physical Therapy Visit Type Type Initial Evaluation Visit Start Time 10:20 Visit Stop Time 11:10 Number of ACADEMY EDUCATION DIRECTOR Visits 0 Therapy Pain Assessment Pain When Pain Assessed During Mobility Pain Present Pain Present Pain Reported Location Back Scale Used pain scale not stated Pain Management Techniques Distraction,Modification of Treatment,Re-positioning M4 PT-IP Mobility and Gait Start: 09/05/24 15:56 Freq: NEEDED Status: Active Protocol: Document 09/06/24 10:20 AB (Rec: 09/06/24 12:42 AB [id number]) PT-Bed Mobility Assessment Supine to Sit Supine to Sit Maximum Assistance,1 Person Assistance,2 Person Assistance ,Head of Bed Elevated,Bedrails PT-Transfer Assessment Sit to and From Stand Sit to and from Stand Maximum Assistance,2 Person Assistance,Use of Upper Extremities Equipment Transfer Assistive Device Gait Belt,Front Wheeled Walker Orthotic/Prosthetic Devices or Brace: No Transfers Transfer Destination Chair Transfer Technique Stand Step Pivot Transfer Ability Level of Assist Maximum Assistance,2 Person Assistance,Use of Upper Extremities Comments Mobility Comments pt in bed. pt with eyes closes but responsive to questions. spouse arrived. obtained PLOF and home set up infor from spouse. BP: 131/78 . completed supine to sit max Ax 1-2 and max cues. HOB elevated. pt able to sit on EOB min A and cues. sit to stand x 3 attempts max A x 2 and max cues. c/o LBP. spouse stated that pt has chronic LBP. pt needing increase time to complete all tasks. completed step transfer to chair using FWW max A x 2 and max cues. positioned pt on the chair. call light and table placed within reach. PT-Balance Assessment Sitting Balance and Reactions Static Sitting Balance Ability Fair Dynamic Sitting Balance Ability Poor Standing Balance and Reactions Static Standing Balance Ability Poor Dynamic Standing Balance Ability Poor Device Used FWW M5 PT-IP Objective Assessments Start: 09/05/24 15:56 Freq: NEEDED Status: Active Protocol: Document 09/06/24 10:20 AB (Rec: 09/06/24 12:42 AB [id number]) Orientation Orientation/Cognition Level of Alertness Confusional State Orientation Name Safety Awareness Decreased Safety Awareness Memory Description Short Term Impaired,Furnace Keeper Impaired Strength Lower Extremity Strength Assessment Within Functional Limits Muscle Tone Muscle Tone WNL Yes M6 PT-IP Treatment Start: 09/05/24 15:56 Freq: NEEDED Status: Active Protocol: Document 09/06/24 10:20 AB (Rec: 09/06/24 12:42 AB [id number]) Physical Therapy Treatment Education Education Provided Safety M7 PT-IP Assessment and Plan Start: 09/05/24 15:56 Freq: NEEDED Status: Active Protocol: Document 09/06/24 10:20 AB (Rec: 09/06/24 12:42 AB [id number]) PT Summary Assessment and Plan Potential Rehabilitation Potential Fair Status of Condition at Evaluation Evolving Summary Impairments Pain,ROM,Strength,Balance, Coordination,Sensation,Tone, Cognition,Bed Mobility, Transfers,Gait,Activity Tolerance Assessment Summary pt is an 89 y/o M who is admitted for LUIS, UTI. pt has h/o metastatic prostated CA contributing to current level of assistance. pt continues to has confusion requiring max cues with all tasks. pt requiring max A x 2 for mobility using FWW and unable to ambulate at this time. pt will require 24/7 assist and will benefit from SNF rehab. Goals Bed Mobility Goal Minimal Assistance Transfer Goal Minimal Assistance,Front Wheeled Walker Gait Goal Minimal Assistance,Front Wheel Walker Gait Distance 25 Other Goals improve bed mobility, transfers, ambulation using FWW ~ 100 ft SBA Days to Meet Goals 10 Frequency of Treatment Frequency Of Treatment Once a Day Treatment Plan Physical Therapy Treatment Plan Bed Mobility Training,Transfer Training,Gait Training, Therapeutic Exercise,Balance Retraining,Discharge Planning, Hot or Cold Pack,Neuromuscular Re-ed,Coordination Retraining Precautions Other Precautions falls; contact precautions Recommendations To Nursing Amount of Assist Needed Mechanical Lift Discharge Recommendations PT Discharge Recommendations Home with 24/7 Assist Available,Home Health,SNF Rehab,Home vs SNF Transportation Needs at Discharge Wheelchair/Cabulance,Stretcher /Ambulance
--- NOTE | 2024-09-06 11:18 | PC.NURSE ---
Pt alert, waving hands and arms in the air saying there are shadow people floating around. Pt's speech somewhat garbled to clear. Follows commands with cueing. Eye care done. Pt up to chair with PT. voicing some concerns to RN. RN spoke with Dr. Joaquin who in turn is now speaking with about Pt status and code status.
[2024-09-06 12:00] VITALS: BP 103/57; PULSE 66; RESP 18; TEMP 36.3; O2SAT 95
[2024-09-06] MEDS: SODIUM CHLORIDE 0.9% FLUSH 10 ML IV (12:01)
[2024-09-06] MEDS: INSULIN LISPRO 100 UNIT/ML 3ML VIAL SUBCUT (13:17)
--- NOTE | 2024-09-06 14:18 | OT.IP.EVAL ---
Current Diagnoses Acute kidney failure, unspecified (09/04/24) Past Medical History (Last Reviewed 09/05/24 @ 07:57 by Pa Joaquin MD) Actinic keratosis Cataracts, bilateral Cerebral amyloid angiopathy Chicken pox Chronic gout, unspecified, without tophus (tophi) Dementia Depression, major, recurrent Essential hypertension GERD (gastroesophageal reflux disease) Gout Hearing loss Hematuria Hemorrhoid High blood pressure History of radioisotope therapy History of urinary retention History of urinary tract infection Incomplete emptying of bladder Measles Mixed hyperlipidemia Mumps Nontraumatic intracranial hemorrhage, unspecified Obstructive sleep apnea Open angle with borderline findings, low risk, bilateral Overweight Personal history of malignant neoplasm of prostate Pneumonia Pneumothorax Polyneuropathy, unspecified Prostate cancer Skin cancer Slow transit constipation Stroke Trigeminal neuralgia Type 2 diabetes mellitus Type 2 diabetes mellitus with diabetic neuropathy, unspecified Unspecified lack of coordination Urethral stricture Urinary frequency Urinary tract infection Vertigo Vitiligo Surgical History (Last Reviewed 09/05/24 @ 07:57 by Pa Joaquin MD) Anesthesia H/O blepharoplasty History of cataract removal with insertion of prosthetic lens (~1999) History of eye surgery History of prostate biopsy History of tonsillectomy (~1947) Occupational Therapy Inpatient Evaluation/Re-Eval M1 PT/OT-IP Prior Functional Status Start: 09/05/24 15:56 Freq: NEEDED Status: Active Protocol: Document 09/06/24 14:19 [facility] (Rec: 09/06/24 14:34 [facility] [id number]) Medical Review Prior Functional Status Medical History Reviewed Yes Communication able to make needs known Mobility and Gait spouse provided pt's PLOF and home set up: spouse stated that pt requires supervision for safety but able to ambulate using a 4WW; spouse assists pt with dressing needs and assist to get into and out of the shower. Activities of Daily Living and IADL's Assist to get into the shower and for dressing needs. Social History Household Members spouse Number of Floors (Floors) One Floor Number of Stairs To Enter/Railing? no steps to enter Home Environment Standard Height Toilet,Walk in Shower Home Equipment Front Wheel Walker,Four Wheel Walker,Shower Seat with Backrest,Hand Held Shower,Grab Bars Near Toilet,Grab Bars In Shower Additional Social History Comment spouse stated that a caregiver comes in every fridays for ~ 3 hours to assist pt when spouse is away M2 OT-IP Current Condition Start: 09/06/24 14:19 Freq: Status: Active Protocol: Document 09/06/24 14:19 [facility] (Rec: 09/06/24 14:34 [facility] [id number]) Occupational Therapy Current Condition Current Condition Evaluation Date 09/06/24 Treatment Diagnosis Dehydration, UTI Diagnosis Onset Date 09/04/24 M3 OT- IP Subjective and Pain Start: 09/06/24 14:19 Freq: Status: Active Protocol: Document 09/06/24 14:19 [facility] (Rec: 09/06/24 14:34 [facility] [id number]) OT- Subjective Occupational Therapy Visit Comments Patient Comments Pt's and friend, Mena in the room. Patient/Caregiver Goals Pt ideally wants her to go home. M4 OT- IP ADL's Start: 09/06/24 14:19 Freq: Status: Active Protocol: Document 09/06/24 14:19 [facility] (Rec: 09/06/24 14:34 [facility] [id number]) OT [id number] Comments OT Self-Feeding Comments Pt's states pt had to be fed today. OT ADL-Grooming Comments OT Grooming Comments Pt needing vc to see the wash cloth and cues from his to wash his mouth. Pt not able to follow commands when OT states, wash your face. OT ADL-Oral Care Comments Oral Care Comments Pt having difficulty to follow commands, not performed. OT ADL-Dressing Comments OT Dressing Comments At this time due to decreased ability to follow and comprehend commands- - dependent. OT ADL-Toileting General Evaluation Toileting Ability Total Assistance Comments OT Toileting Comments Nguyễn in place. OT ADL-Bathing Comments OT Bathing Comments Sponge bath more appropriate at this time. M5 OT- IP IADL's Start: 09/06/24 14:19 Freq: Status: Active Protocol: Document 09/06/24 14:19 [facility] (Rec: 09/06/24 14:34 [facility] [id number]) OT-Instrumental Activities of Daily Living Home Safety Awareness Awareness of Need for Assistance at Home Decreased Awareness Ability to Problem Solve Emergency Unable to Problem Solve Situations Medication Management Medication Management Caregiver Administers Money Management Money Management Caregiver Provides Assistance Meal Preparation Meal Preparation Caregiver Provides Assist Senior Tableau Developer Senior Tableau Developer Caregiver Provides Assist M6 OT- IP Functional Cognition Start: 09/06/24 14:19 Freq: Status: Active Protocol: Document 09/06/24 14:19 [facility] (Rec: 09/06/24 14:34 [facility] [id number]) Cognitive Factors Limiting Selfcare Function Cognitive Ability Level of Alertness Confusional State Patient Orientation Name Cognitive Comments Cognitive Assessment Comments Pt only orientated to his name and thought he was at home. Pt fidgeting in the recliner and jimbo on his catheter and needing to give pt wash cloths and blanket to fold to distract him. Pt's states he is very structured at home for his needs. OT- Vision and Hearing OT- Vision Assessment Vision Assessment Comments Pt needing increased time to find the wash cloth for able to wash his face. To further assess. M7 OT- IP Mobility and Balance Start: 09/06/24 14:19 Freq: Status: Active Protocol: Document 09/06/24 14:19 [facility] (Rec: 09/06/24 14:34 [facility] [id number]) OT-Transfer Assessment Comments Mobility Comments Pt not able to follow commands at this time and per nursing best to use lloyd lift to help get pt back to bed later. M8 OT- IP Objective Assessments Start: 09/06/24 14:19 Freq: Status: Active Protocol: Document 09/06/24 14:19 [facility] (Rec: 09/06/24 14:34 [facility] [id number]) OT Strength Comments Strength Comments AT least 3-/5 per observation of pt moving his arms but not able to follow commands at this time. M9 OT- IP Assessment and Plan Start: 09/06/24 14:19 Freq: Status: Active Protocol: Document 09/06/24 14:19 [facility] (Rec: 09/06/24 14:34 [facility] [id number]) OT Summary Assessment and Plan Potential Rehabilitation Potential Fair Analytic Complexity at Evaluation Moderate Summary OT Impairments Strength,Balance,Functional Cognition,Functional Mobility, Self-Feeding,Grooming,Dressing ,Toileting,Bathing,Toilet Transfers,Shower Transfers, Activity Tolerance Progress Towards Goals Slow Progress due to Pain,Slow Progress due to Medical Issues,Slow Progress due to Activity Tolerance,Slow Progress due to Cognition Assessment Summary Pt MOD complexity and main barriers are decreased ability to follow commands and therefore at this time very dependent for all needs and use of mechanical lift for transfers for safety. Pt's is very hopeful to take pt home but at this time appears very overwhelmed and would like to talk to case management tomorrow with her son on the phone to talk about what to do next. OT and pt's friend, Mena trying to educated pt's of benefit for skilled rehab for pt's current level, pt would need use of lloyd lift and two caregivers to be able to assist pt at this time. Goals Self-Feeding Goal Standby Assistance Grooming Goal Standby Assistance Dressing Goal Minimal Assistance Toileting Goal Minimal Assistance Bathing Goal Moderate Assistance Toilet Transfer Goal Contact Guard Assistance Shower Transfer Goal Minimal Assistance Days to Meet Goals 30 Frequency of Treatment Other frequency 5x/week Treatment Plan OT Treatment Plan ADL Training,Functional Mobility,Patient/Family Education,Discharge Planning Other Treatment Recommendations and Next Transfer with FWW with MODA X Treatment Focus 2 to [facility]. Discharge Recommendations OT Discharge Recommendations SNF Rehab Transportation Needs at Discharge Wheelchair/Cabulance
--- NOTE | 2024-09-06 14:23 | CM.DPNOTE ---
DCP Note DERRICK BUILDER reviewed EMR Per provider in morning rounds, could potential dc tomorrow vs next day. Per OT, rec SNF at this time. Friend and partner in room during OT eval. Per OT, friend heavily pushing towards SNF for pt. Per OT, spouse overwhelmed at this time (she may have cog concerns herself) and asked OT for SW to follow up with her and pt tomorrow, she plans to be here around 10am, wants to have son on the phone for SW conversation as well. P: home with [facility] (f2f and order needed), family, and increased PP CG support with [facility] vs SNF (referrals/preferences needed). CM team will continue to follow closely for DCP coordination FERNANDO Ch
[2024-09-06 16:00] VITALS: BP 121/65; PULSE 72; RESP 18; TEMP 36.6; O2SAT 93
[2024-09-06 20:00] VITALS: BP 110/88; PULSE 75; RESP 15; TEMP 36.6; O2SAT 96
[2024-09-06] MEDS: ATORVASTATIN 20 MG TABLET 40 MG PO (21:15)
[2024-09-07] VITALS: BP 110/65; PULSE 65; RESP 14; TEMP 36.6; O2SAT 97
[2024-09-07 04:00] VITALS: BP 121/80; PULSE 64; RESP 15; TEMP 36.8; O2SAT 98
[2024-09-07 05:29] LABS: BUN Creatinine Ratio 18.3 (6-22); Blood Urea Nitrogen 23 mg/dL (9-20); Calcium 8.8 mg/dL (8.4-10.2); Carbon Dioxide 21 mmol/L (22-32); Chloride 110 mmol/L (98-107); Estimated Glomerular Filt Rate 55 mL/min (>60); Glucose 104 mg/dL (80-110); HEMOLYSIS < 15 (0-50); Potassium 3.7 mmol/L (3.4-5.1); Sodium 139 mmol/L (137-145)
--- NOTE | 2024-09-07 07:26 | P.PN_ITS ---
Subjective Subjective Interval history: Summary: A 89-year-old male with history of prostate cancer urethral stricture as well as a chronic indwelling Mckeon. He was recently rice of urology discussed with a UTI. On September 01, Mckeon was placed. The patient was brought in for lethargy and decreased output into the Mckeon. He was found to be volume depleted and has been treated with IV fluids and Cipro IV. He would significant encephalopathy as well as hallucinations. He was began to improve on the 30/12. He lives with his and custodial bed. She was agreeable to [facility] if available. Serratia UTI, improving on Cipro. ECHO reveal new systolic dysfunction with EF 25-30% NSTEMI treated with a simple medical regimen of , BB, and statin. agreeable to SNF if approved by payor. S: No delerium today. Denies pain. Denies dyspnea. Exam Vital Signs (past 8 hours): - 09/07/24 00:00 09/07/24 04:00 Temperature 98 F 98.2 F Pulse Rate 65 64 Respiratory Rate 14 15 Blood Pressure 110/65 121/80 Pulse Oximetry 97 98 Oxygen Delivery Method Room Air Oxygen Flow Rate 0 Narrative Exam Narrative: NAD, somnolent and interactive. Minimal speech. Lungs are clear, normal rate and effort. Heart is regular, no murmur gallop or rub. Abdomen is soft, non distended. Extremities are free of edema. Objective ECG Impression: Sinus rhythm with premature supraventricular complexes and with frequent premature ventricular complexes Right bundle branch block Septal infarct , age undetermined T wave abnormality, consider lateral ischemia Imaging Multiple studies:: Radiologist's impression: ECHO: The ejection fraction is estimated to be 25-30%. The left ventricle is mild-moderately dilated. The LV lateral wall is akinetic. Grade II diastolic dysfunction. The right ventricular systolic function is normal. The right ventricular systolic pressure is estimated to be at least 35 mmHg based on an estimated right atrial pressure of 3 mm Hg. The left atrium is severely dilated. There is moderate mitral regurgitation. There is mild aortic stenosis. Renal US: Negative for hydronephrosis. Nonobstructing 5 mm left-sided kidney stone seen by ultrasound. No similar stone can be seen on the prior CT, so this may be related to artifact, however. CXR: There is cardiomegaly with a left-sided pleural effusion. Mild interstitial prominence can be seen. This may be related to pulmonary edema versus artifact. Please consider CHF. Labs 09/06/24 04:58 09/07/24 04:31 Labs: Laboratory Results - last 24 hr 09/07/24 04:31 Sodium 139 Potassium 3.7 Chloride 110 H Carbon Dioxide 21 L BUN 23 H Creatinine 1.26 H Estimated GFR 55 L BUN/Creatinine Ratio 18.3 Glucose 104 Calcium 8.8 [facility] Medical History History of urinary tract infection History of urinary retention Urinary tract infection Urinary frequency Slow transit constipation History of radioisotope therapy Dementia Depression, major, recurrent Incomplete emptying of bladder Urethral stricture High blood pressure Hematuria Obstructive sleep apnea Overweight Personal history of malignant neoplasm of prostate Open angle with borderline findings, low risk, bilateral Trigeminal neuralgia Unspecified lack of coordination Chronic gout, unspecified, without tophus (tophi) Mixed hyperlipidemia Essential hypertension Polyneuropathy, unspecified Type 2 diabetes mellitus with diabetic neuropathy, unspecified Cerebral amyloid angiopathy Nontraumatic intracranial hemorrhage, unspecified Vitiligo Actinic keratosis Pneumonia Pneumothorax Stroke Gout Mumps Measles Chicken pox Vertigo Hearing loss Cataracts, bilateral Hemorrhoid GERD (gastroesophageal reflux disease) Skin cancer Prostate cancer Type 2 diabetes mellitus Surgical History History of prostate biopsy Anesthesia History of eye surgery History of cataract removal with insertion of prosthetic lens (~1999) History of tonsillectomy (~1947) H/O blepharoplasty Family History Father History of heart disease Mother Stroke Brother Cancer Hypertension Hearing impairment Sister Cancer Stroke Hypertension Social History marital status: number of children: 2 household members: spouse Smoking Status: Former smoker alcohol intake: current Type(s) of exercise: other frequency: 1-2 times per week Assessment & Plan Assessment & Plan narrative: 1. Acute kidney injury with oliguria (dehydration), present on admission and improved. Suspect secondary to poor oral intake in the setting of UTI and urinary retention initially. 2. Serratia UTI associated with catheter, present on admission and improving. Will resume ciprofloxacin, 500 BID (rebal function improved). 3. NSTEMI, present on admission and improved. EKG was reviewed which appears essentially unchanged compared to previous EKG from approximately 1 year ago. He does have a right bundle branch block, sinus rhythm with frequent PVCs. 4. Hypomagnesemia, present on admission and improved. As noted, he is having some ectopy as noted on his EKG. Will place on telemetry. Will replete with IV magnesium. Recheck in the morning. 5. Anemia, stable. Normocytic. His hemoglobin has gradually been trending down since July of last year, at which time it was 12.0. He has no evidence of any GI bleeding. 6. Acute systolic heart failure by echo (possibly new), present on admission and active. Patient did have a significantly elevated BNP, some left-sided pleural effusion with cardiomegaly on chest x-ray and some ankle edema bilaterally. He has no crackles on examination. He has no dyspnea. C 7. Cerebrovascular disease and associated dementia, stable. Patient has cerebral angiopathy diagnosed in May of 2021. He does have cognitive deficits. There has been some discussion with the patient's spouse for consideration of placement. Would benefit from social work/discharge planning assessment to determine whether this would be indicated at this time. 8. Diabetes mellitus type 2, stable. Well controlled. Will place on fingersticks and sliding scale as well as controlled carb diet. 9. Hypertension, stable. Continue amlodipine. Hold losartan given his LUIS. 10. Hyperlipidemia, stable. On simvastatin on an outpatient basis 11. GERD, stable. On pantoprazole on an outpatient basis. Await medication reconciliation 12. Septic encephalopathy, new and improving. PLAN: -monitor UOP. -continue cardiac medications -continue low-dose beta blockade, ASA. -continue statin. -continue Cipro (7-10 days) -mckeon in place. - prefers to bring him home with additional help rather than a facility with his current memory issues. We will discuss the specifics with her. RUSSEL: 1-2 days (07/08-). Looking at SNF referrals. Started this process today. Code status Will be full code by default for now. However, he does have an advanced directive scanned into [facility] that does state he would like to be DNR in the event of a terminal prognosis of 1 year or less. Had long discussion with who stands by a full code at this time. Time-Based Coding :: [TOTAL MINUTES] spent with patient and on the chart (including review of chart, obtaining history, exam, reviewing outside data, placing orders, documenting exam and treatment plan, and counseling patient) on [DATE]. Quality VTE Deep Vein Thrombosis/Pulmonary Embolism Present on Admission: No
[2024-09-07 08:00] VITALS: BP 117/72; PULSE 80; RESP 16; TEMP 36.7; O2SAT 93
[2024-09-07] MEDS: CIPROFLOXACIN 250 MG TABLET 500 MG PO ×2 (08:10→21:10)
[2024-09-07] MEDS: BRIMONIDINE TIMOLOL 1 EACH EYE-RIGHT ×2 (10:31→20:30)
[2024-09-07] MEDS: DOCUSATE 100 MG CAPSULE PO (10:32)
[2024-09-07] MEDS: FINASTERIDE 5 MG TABLET PO (10:32)
[2024-09-07] MEDS: BRINZOLAMIDE 1% 1 EACH EYE-BOTH (10:32)
[2024-09-07] MEDS: HEPARIN 5,000 UNIT/ML VIAL 5000 UNIT SUBCUT ×2 (10:32→21:10)
[2024-09-07] MEDS: SODIUM CHLORIDE 0.9% FLUSH 10 ML IV ×2 (10:33→21:13)
--- NOTE | 2024-09-07 11:35 | PT.IPTN ---
Current Diagnoses Acute kidney failure, unspecified (09/04/24) Physical Therapy Treatment Note M2 PT-IP Current Condition Start: 09/05/24 15:56 Freq: NEEDED Status: Active Protocol: Document 09/06/24 10:20 AB (Rec: 09/06/24 12:42 AB [id number]) Physical Therapy Current Condition Current Condition Evaluation Date 09/06/24 Treatment Diagnosis UTI; LUIS; difficulty in walking Onset Date 09/04/24 M3 PT-IP Subjective Start: 09/05/24 15:56 Freq: NEEDED Status: Active Protocol: Document 09/07/24 11:35 AB (Rec: 09/07/24 13:02 AB [id number]) Subjective Physical Therapy Visit Type Type Treatment Note Visit Start Time 11:35 Visit Stop Time 12:05 Number of RN ORTHOPEDIC Visits 0 Physical Therapy Visit Comments Patient Comments agreeable to get up M4 PT-IP Mobility and Gait Start: 09/05/24 15:56 Freq: NEEDED Status: Active Protocol: Document 09/07/24 11:35 AB (Rec: 09/07/24 13:02 AB [id number]) PT-Bed Mobility Assessment Supine to Sit Supine to Sit Maximum Assistance,1 Person Assistance,Head of Bed Elevated,Bedrails PT-Transfer Assessment Sit to and From Stand Sit to and from Stand Maximum Assistance,1 Person Assistance,2 Person Assistance ,Use of Upper Extremities Equipment Transfer Assistive Device Gait Belt,Front Wheeled Walker Orthotic/Prosthetic Devices or Brace: No Transfers Transfer Destination Chair Transfer Technique ambulated Transfer Ability Level of Assist Maximum Assistance,1 Person Assistance,Use of Upper Extremities Comments Mobility Comments pt in bed and spouse in room. spouse voiced concern about pt sitting on chair for a long time yesterday after PT got pt out of bed. informed spouse to tell nurse when she wants pt back in bed and PT will also let NAC know. spouse understood. pt completed supine to sit max A and max cues with HOB elevated. pt more responsive today and able to open eyes better to make eye contact. NAC in room to assist. pt completed sit to stand max A 1-2 and max cues. continues to have increase retrolean and cues to use FWW for support. pt ambulated ~ 8 ft in room using FWW max A x 1-2 and max cues and with chair follow. positioned pt on the chair. call light and table placed within reach. Left pt with spouse and OT. Gait Assessment Gait Gait Assistance Required: Maximum Assistance,1 Person Assist,2 Person Assist Distance (Feet) 8 Able to Maintain Weight Bearing Status Yes During Gait Assistive Devices Assistive Device Gait Belt,Front Wheeled Walker Orthotic/Prosthetic Devices or Brace: No Gait Deviations General Gait Pattern Decreased Stride Length, Decreased Feet Clearance,Step- to Gait Factors Limiting Gait Function Factors Limiting Gait Function Decreased Activity Tolerance, Decreased Strength,Difficulty Following Directions,Limited Range of Motion,Poor Balance, Poor Safety Awareness M5 PT-IP Objective Assessments Start: 09/05/24 15:56 Freq: NEEDED Status: Active Protocol: Document 09/06/24 10:20 AB (Rec: 09/06/24 12:42 AB [id number]) Orientation Orientation/Cognition Level of Alertness Confusional State Orientation Name Safety Awareness Decreased Safety Awareness Memory Description Short Term Impaired,Senior Living Impaired Strength Lower Extremity Strength Assessment Within Functional Limits Muscle Tone Muscle Tone WNL Yes M6 PT-IP Treatment Start: 09/05/24 15:56 Freq: NEEDED Status: Active Protocol: Document 09/07/24 11:35 AB (Rec: 09/07/24 13:02 AB [id number]) Physical Therapy Treatment Education Education Provided Safety M7 PT-IP Assessment and Plan Start: 09/05/24 15:56 Freq: NEEDED Status: Active Protocol: Document 09/07/24 11:35 AB (Rec: 09/07/24 13:02 AB [id number]) PT Summary Assessment and Plan Potential Rehabilitation Potential Fair Summary Impairments Pain,ROM,Strength,Balance, Coordination,Sensation,Tone, Cognition,Bed Mobility, Transfers,Gait,Activity Tolerance Progress Towards Goals Slow Progress due to Medical Issues,Slow Progress due to Activity Tolerance,Slow Progress - Other Assessment Summary pt improving slowly with mobility and able to ambulate ~ 8 ft today using FWW but continues to need max A x1-2 and max cues. pt will benefit from SNF rehab to improve overall strength and function. Goals Bed Mobility Goal Minimal Assistance Transfer Goal Minimal Assistance,Front Wheeled Walker Gait Goal Minimal Assistance,Front Wheel Walker Gait Distance 25 Other Goals improve bed mobility, transfers, ambulation using FWW ~ 100 ft SBA Days to Meet Goals 10 Frequency of Treatment Frequency Of Treatment Once a Day Treatment Plan Physical Therapy Treatment Plan Bed Mobility Training,Transfer Training,Gait Training, Therapeutic Exercise,Balance Retraining,Discharge Planning, Hot or Cold Pack,Neuromuscular Re-ed,Coordination Retraining Precautions Other Precautions falls; contact precautions Recommendations To Nursing Amount of Assist Needed 2 Person Assist Discharge Recommendations PT Discharge Recommendations Home with 02/02 Assist Available,Home Health,SNF Rehab,Home vs SNF Transportation Needs at Discharge Wheelchair/Cabulance
--- NOTE | 2024-09-07 12:13 | OT.IP.TRT ---
Current Diagnoses Acute kidney failure, unspecified (09/04/24) Occupational Therapy Treatment Note M2 OT-IP Current Condition Start: 09/06/24 14:19 Freq: Status: Active Protocol: Document 09/06/24 14:19 [facility] (Rec: 09/06/24 14:34 [facility] [id number]) Occupational Therapy Current Condition Current Condition Evaluation Date 09/06/24 Treatment Diagnosis Dehydration, UTI Diagnosis Onset Date 09/04/24 M3 OT- IP Subjective and Pain Start: 09/06/24 14:19 Freq: Status: Active Protocol: Document 09/07/24 12:13 [facility] (Rec: 09/07/24 12:19 [facility] [id number]) OT- Subjective Occupational Therapy Visit Type Type Treatment Note Visit Start Time 11:55 Visit Stop Time 12:13 Occupational Therapy Visit Comments Patient Comments Pt just finishing working with PT and still needing two person assist to mobilize at this time. Patient/Caregiver Goals Pt's now open for pt to go to skilled rehab now. OT Pain Assessment Pain When Pain Assessed At Rest Pain Present Pain Present Denied Pain M4 OT- IP ADL's Start: 09/06/24 14:19 Freq: Status: Active Protocol: Document 09/07/24 12:13 [facility] (Rec: 09/07/24 12:19 [facility] [id number]) OT [id number] Comments OT Self-Feeding Comments Not at meal time. Educated pt' s to allow pt to try to eat on his own first and help as needed. OT ADL-Grooming General Evaluation Grooming Ability Standby Assistance Comments OT Grooming Comments Pt able to wash his face todya after set-up. OT ADL-Oral Care General Eval Oral Care Ability Standby Assistance Areas of Assistance Retrieving/Set-Up of Items Comments Oral Care Comments Pt needing cues to help complete task but able to do. Pt needing cues to find the washcloth on the right side. M5 OT- IP IADL's Start: 09/06/24 14:19 Freq: Status: Active Protocol: Document 09/06/24 14:19 [facility] (Rec: 09/06/24 14:34 [facility] [id number]) OT-Instrumental Activities of Daily Living Home Safety Awareness Awareness of Need for Assistance at Home Decreased Awareness Ability to Problem Solve Emergency Unable to Problem Solve Situations Medication Management Medication Management Caregiver Administers Money Management Money Management Caregiver Provides Assistance Meal Preparation Meal Preparation Caregiver Provides Assist Public Relations Director Public Relations Director Caregiver Provides Assist M6 OT- IP Functional Cognition Start: 09/06/24 14:19 Freq: Status: Active Protocol: Document 09/07/24 12:13 [facility] (Rec: 09/07/24 12:19 [facility] [id number]) Cognitive Factors Limiting Selfcare Function Cognitive Ability Level of Alertness Alert Patient Orientation Name Attention Span Ability Capable of Focused Attention, Capable of Sustained Attention Ability to Follow Commands Able to Follow One Step Commands with Increased Time, Able to Follow One Step Commands with Repetition Cognitive Comments Cognitive Assessment Comments Pt able to follow simple commands today. 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 M7 OT- IP Mobility and Balance Start: 09/06/24 14:19 Freq: Status: Active Protocol: Document 09/06/24 14:19 [facility] (Rec: 09/06/24 14:34 [facility] [id number]) OT-Transfer Assessment Comments Mobility Comments Pt not able to follow commands at this time and per nursing best to use lloyd lift to help get pt back to bed later. M8 OT- IP Objective Assessments Start: 09/06/24 14:19 Freq: Status: Active Protocol: Document 09/06/24 14:19 [facility] (Rec: 09/06/24 14:34 [facility] [id number]) OT Strength Comments Strength Comments AT least 3-/5 per observation of pt moving his arms but not able to follow commands at this time. M9 OT- IP Assessment and Plan Start: 09/06/24 14:19 Freq: Status: Active Protocol: Document 09/07/24 12:13 [facility] (Rec: 09/07/24 12:19 [facility] [id number]) OT Summary Assessment and Plan Potential Rehabilitation Potential Good Analytic Complexity at Evaluation Moderate Summary OT Impairments Strength,Balance,Functional Cognition,Functional Mobility, Self-Feeding,Grooming,Dressing ,Toileting,Bathing,Toilet Transfers,Shower Transfers, Activity Tolerance Progress Towards Goals Progressing Toward Goals Assessment Summary Pt able to do his oral care needs today after set-up and cues. Pt much more alert today and able to follow commands better. Pt's now open to having pt go to skilled rehab as pt just completing PT session and still needing two person assist. Pt to go to skilled rehab when medically stable. Goals Self-Feeding Goal Standby Assistance Grooming Goal Standby Assistance Dressing Goal Minimal Assistance Toileting Goal Minimal Assistance Bathing Goal Moderate Assistance Toilet Transfer Goal Contact Guard Assistance Shower Transfer Goal Minimal Assistance Days to Meet Goals 29 Frequency of Treatment Other frequency 5x/week Treatment Plan OT Treatment Plan ADL Training,Functional Mobility,Patient/Family Education,Discharge Planning Other Treatment Recommendations and Next Transfer with FWW with [facility] X Treatment Focus 2 to [facility] [place]. Discharge Recommendations OT Discharge Recommendations SNF Rehab Transportation Needs at Discharge Wheelchair/Cabulance
--- NOTE | 2024-09-07 14:36 | CM.DPNOTE ---
DCP Cont Discharge options reviewed with spouse. Spouse still considering taking patient back home with an increase in care from [facility] vs SNF. Spouse requests the following [facility]: [facility] 3. [facility] Discussed the need for SNF auth from crist[facility] TAB[facility] and spouse states understanding. NITIN Correa, agreed to send these referrals. Hospital exempted PASRR will be needed for PMH: major depression, on Remeron. CM team following closely for coordination of discharge plan. JW
[2024-09-07] MEDS: METOPROLOL IR 25 MG TABLET 12.5 MG PO ×2 (15:06→20:28)
[2024-09-07] MEDS: ASPIRIN EC 81 MG TABLET PO (15:06)
[2024-09-07 16:00] VITALS: BP 106/68; PULSE 66; RESP 18; TEMP 36.2; O2SAT 96
[2024-09-07 19:30] VITALS: BP 116/69; PULSE 72; RESP 16; TEMP 36.6; O2SAT 94
[2024-09-07] MEDS: ACETAMINOPHEN 325 MG TABLET 650 MG PO (20:28)
[2024-09-07] MEDS: ATORVASTATIN 20 MG TABLET 40 MG PO (20:29)
[2024-09-07] MEDS: NETARSUDIL LATANOPROST 1 EACH EYE-RIGHT (21:16)
[2024-09-08 05:04] LABS: Hematocrit 33.6 % (41-53); Hemoglobin 11.3 g/dL (13.5-17.5); Mean Corpuscular HGB Conc 33.6 % (30-36); Mean Corpuscular Hemoglobin 32.9 PG (26-34); Mean Corpuscular Volume 98.1 fL (80-100); Platelet Count 246 X10^3/uL (150-400); Red Blood Cell Count 3.43 X10^6/uL (4.5-5.9); Red Cell Distribution Width 15.9 % (11.6-14.8); White Blood Cell Count 7.7 X10^3/uL (4.5-11.0)
[2024-09-08 05:23] LABS: Blood Urea Nitrogen 25 mg/dL (9-20); Carbon Dioxide 20 mmol/L (22-32); Chloride 108 mmol/L (98-107); Estimated Glomerular Filt Rate 59 mL/min (>60); Glucose 114 mg/dL (80-110); HEMOLYSIS < 15 (0-50); Potassium 3.5 mmol/L (3.4-5.1); Sodium 140 mmol/L (137-145)
[2024-09-08 09:00] VITALS: BP 131/87; PULSE 74; RESP 17; TEMP 36.9; O2SAT 95
[2024-09-08] MEDS: HEPARIN 5,000 UNIT/ML VIAL 5000 UNIT SUBCUT ×2 (09:00→20:29)
[2024-09-08] MEDS: BRINZOLAMIDE 1% 1 EACH EYE-BOTH (09:00)
[2024-09-08] MEDS: SODIUM CHLORIDE 0.9% FLUSH 10 ML IV ×2 (09:00→20:30)
[2024-09-08] MEDS: METOPROLOL IR 25 MG TABLET 12.5 MG PO ×2 (09:44→20:29)
[2024-09-08] MEDS: FINASTERIDE 5 MG TABLET PO (09:44)
[2024-09-08] MEDS: CIPROFLOXACIN 250 MG TABLET 500 MG PO ×2 (09:44→20:29)
[2024-09-08] MEDS: ASPIRIN EC 81 MG TABLET PO (09:45)
[2024-09-08] MEDS: POTASSIUM CHLORIDE 20 MEQ TAB PO (09:45)
[2024-09-08] MEDS: BRIMONIDINE TIMOLOL 1 EACH EYE-RIGHT ×2 (09:50→20:23)
--- NOTE | 2024-09-08 11:02 | CM.DPNOTE ---
DCP Cont [facility] [place] [facility] are not contracted with patient's [employer] MCR. Speaking with Kaleb, admissions at [facility] today - [email or web address] [phone], patient has been clinically accepted and auth has been started today 09/08 through [employer]. Updated spouse, explained that Dr Kamara feels patient is medically stable. Further explained that if the SNF auth has not been secured over the next 24-48 hrs, there is a high likelihood that spouse will be asked to take patient home with care assist from [facility] and HH through [facility]. Spouse states understanding. Spouse reports alarm that patient is ready for discharge and asks to speak with Dr Kamara; provider updated. Hospital exempt PASRR completed in anticipation of SNF, signed by Dr Kamara. F2F and HH order completed in the case patient return home with spouse and [facility]- send completed orders and DC Summary to [facility]. Plan: Discharge to [facility] via wheelchair if [employer] auth is secured vs home w/spouse, [facility] and [facility]. team following closely for coordination of discharge plan. ANNIKA
--- NOTE | 2024-09-08 11:10 | PT.IPTN ---
Current Diagnoses Acute kidney failure, unspecified (09/04/24) Physical Therapy Treatment Note M2 PT-IP Current Condition Start: 09/05/24 15:56 Freq: NEEDED Status: Active Protocol: Document 09/06/24 10:20 AB (Rec: 09/06/24 12:42 AB [id number]) Physical Therapy Current Condition Current Condition Evaluation Date 09/06/24 Treatment Diagnosis UTI; LUIS; difficulty in walking Onset Date 09/04/24 M3 PT-IP Subjective Start: 09/05/24 15:56 Freq: NEEDED Status: Active Protocol: Document 09/08/24 10:45 MB (Rec: 09/08/24 11:10 MB [id number]) Subjective Physical Therapy Visit Type Type Treatment Note Visit Start Time 10:45 Visit Stop Time 10:55 Number of REPORTING COORDINATOR Visits 0 Physical Therapy Visit Comments Patient Comments Pt with nearby and pt with confusion, not tracking to PT, often looking to the right when PT is on the left and moving pt's leg to the left. Therapy Pain Assessment Pain When Pain Assessed During Mobility Pain Present Pain Present Pain Reported Location Possibly legs Scale Used PT touches pt's posterior legs and he grimaces M4 PT-IP Mobility and Gait Start: 09/05/24 15:56 Freq: NEEDED Status: Active Protocol: Document 09/08/24 10:45 MB (Rec: 09/08/24 11:10 MB [id number]) PT-Transfer Assessment Comments Mobility Comments Dependent to scoot legs to the left in the bed and pt does not make an effort to assist, PT attempts to move hand to the left rail and he does not medical staff specialist M5 PT-IP Objective Assessments Start: 09/05/24 15:56 Freq: NEEDED Status: Active Protocol: Document 09/06/24 10:20 AB (Rec: 09/06/24 12:42 AB [id number]) Orientation Orientation/Cognition Level of Alertness Confusional State Orientation Name Safety Awareness Decreased Safety Awareness Memory Description Short Term Impaired,Detention Impaired Strength Lower Extremity Strength Assessment Within Functional Limits Muscle Tone Muscle Tone WNL Yes M6 PT-IP Treatment Start: 09/05/24 15:56 Freq: NEEDED Status: Active Protocol: Document 09/07/24 11:35 AB (Rec: 09/07/24 13:02 AB [id number]) Physical Therapy Treatment Education Education Provided Safety M7 PT-IP Assessment and Plan Start: 09/05/24 15:56 Freq: NEEDED Status: Active Protocol: Document 09/08/24 10:45 MB (Rec: 09/08/24 11:10 MB [id number]) PT Summary Assessment and Plan Potential Rehabilitation Potential Fair Status of Condition at Evaluation Evolving Summary Impairments Pain,ROM,Strength,Balance, Coordination,Sensation,Tone, Cognition,Bed Mobility, Transfers,Gait,Activity Tolerance Progress Towards Goals Slow Progress - Other Assessment Summary Pt presents confused and does not track eyes towards PT often, pt looking to the right and PT on pt's left and moving pt's legs to the left to the EOB. Pt A&O to name and only and then makes incomprehensible speech throughout attempted mobility. Left in bed with bed alarm on and nearby as pt cannot participate meaningfully with skilled PT this a.m. Goals Bed Mobility Goal Standby Assistance Transfer Goal Standby Assistance,Front Wheeled Walker Gait Goal Standby Assistance,Front Wheel Walker Gait Distance 50 Days to Meet Goals 10 Frequency of Treatment Frequency Of Treatment Once a Day Other frequency x2 Treatment Plan Physical Therapy Treatment Plan Bed Mobility Training,Transfer Training,Gait Training, Therapeutic Exercise,Balance Retraining,Discharge Planning, Hot or Cold Pack,Neuromuscular Re-ed,Coordination Retraining Precautions Other Precautions falls; contact precautions Recommendations To Nursing Amount of Assist Needed Mechanical Lift Discharge Recommendations PT Discharge Recommendations SNF Rehab Transportation Needs at Discharge Wheelchair/Cabulance,Stretcher /Ambulance
[2024-09-08] MEDS: INSULIN LISPRO 100 UNIT/ML 3ML VIAL SUBCUT ×2 (12:10→17:10)
--- NOTE | 2024-09-08 12:35 | OT.IP.TRT ---
Current Diagnoses Acute kidney failure, unspecified (09/04/24) Occupational Therapy Treatment Note M2 OT-IP Current Condition Start: 09/06/24 14:19 Freq: Status: Active Protocol: Document 09/06/24 14:19 [facility] (Rec: 09/06/24 14:34 [facility] [id number]) Occupational Therapy Current Condition Current Condition Evaluation Date 09/06/24 Treatment Diagnosis Dehydration, UTI Diagnosis Onset Date 09/04/24 M3 OT- IP Subjective and Pain Start: 09/06/24 14:19 Freq: Status: Active Protocol: Document 09/08/24 13:43 [facility] (Rec: 09/08/24 13:52 [facility] [id number]) OT- Subjective Occupational Therapy Visit Type Type Treatment Note Visit Start Time 11:40 Visit Stop Time 12:35 Occupational Therapy Visit Comments Patient Comments Pt agreed to try to get up. Pt 's present in the room. Patient/Caregiver Goals Pt's for pt to go to skilled rehab. OT Pain Assessment Pain When Pain Assessed At Rest Pain Present Pain Present Pain Reported Location Possibly legs Pain Behaviors Calling Out,Facial Grimacing M4 OT- IP ADL's Start: 09/06/24 14:19 Freq: Status: Active Protocol: Document 09/08/24 13:43 [facility] (Rec: 09/08/24 13:52 [facility] [id number]) OT DFC-Xrok-Dctmgio Comments OT Self-Feeding Comments NOt at meal time. OT ADL-Grooming General Evaluation Grooming Ability Standby Assistance Comments OT Grooming Comments Pt able to take the wash cloth to wash his mouth and eye after cues. M5 OT- IP IADL's Start: 09/06/24 14:19 Freq: Status: Active Protocol: Document 09/06/24 14:19 [facility] (Rec: 09/06/24 14:34 [facility] [id number]) OT-Instrumental Activities of Daily Living Home Safety Awareness Awareness of Need for Assistance at Home Decreased Awareness Ability to Problem Solve Emergency Unable to Problem Solve Situations Medication Management Medication Management Caregiver Administers Money Management Money Management Caregiver Provides Assistance Meal Preparation Meal Preparation Caregiver Provides Assist Perinatal Technician Perinatal Technician Caregiver Provides Assist M6 OT- IP Functional Cognition Start: 09/06/24 14:19 Freq: Status: Active Protocol: Document 09/08/24 13:43 [facility] (Rec: 09/08/24 13:52 [facility] [id number]) Cognitive Factors Limiting Selfcare Function Cognitive Ability Level of Alertness Alert,Confusional State Patient Orientation Name Attention Span Ability Capable of Focused Attention, Capable of Sustained Attention Ability to Follow Commands Able to Follow One Step Commands with Increased Time, Able to Follow One Step Commands with Repetition Cognitive Comments Cognitive Assessment Comments Pt O xname. Pt able to state his 's name and aware that they have been for more than 60 years. Pt not aware that he is in the hospital. M7 OT- IP Mobility and Balance Start: 09/06/24 14:19 Freq: Status: Active Protocol: Document 09/08/24 13:43 [facility] (Rec: 09/08/24 13:52 [facility] [id number]) OT- Bed Mobility Assessment Supine to Sit Supine to Sit Assist Maximum Assistance,1 Person Assistance,2 Person Assistance Scooting Scooting to Edge of Bed Maximum Assistance,1 Person Assistance,Bedrails OT-Transfer Assessment Sit to and From Stand Sit to and from Stand Maximum Assistance,2 Person Assistance Transfers Transfer Ability Moderate Assistance,Maximum Assistance,2 Person Assistance Technique Transfer Destination Bed,Chair Devices Transfer Assistive Devices Gait Belt,Front Wheeled Walker Comments Mobility Comments Pt needing increased time to follow commands. Pt needing time to rest in between the task at hand. MAXA with HOB up to help get to the edge of the bed. Initially, pt able to move his legs a little to the edge of bed and then needing physical assist. MAX AX 2 to help get all the way up. Pt complaining of pain around his legs/penis area, nursing aid notified. MAX XA 2 to stand to the FWW and able to transfer with MOD/MAXAX 2 to the FWW with increased time and lots of cues. OT- Balance Assessment Sitting Balance and Reactions Static Sitting Balance Ability Good Standing Balance and Reactions Static Standing Balance Ability Poor Dynamic Standing Balance Ability Poor M8 OT- IP Objective Assessments Start: 09/06/24 14:19 Freq: Status: Active Protocol: Document 09/06/24 14:19 [facility] (Rec: 09/06/24 14:34 [facility] [id number]) OT Strength Comments Strength Comments AT least 3-/5 per observation of pt moving his arms but not able to follow commands at thsi time. M9 OT- IP Assessment and Plan Start: 09/06/24 14:19 Freq: Status: Active Protocol: Document 09/08/24 13:43 [facility] (Rec: 09/08/24 13:52 [facility] [id number]) OT Summary Assessment and Plan Potential Rehabilitation Potential Good Analytic Complexity at Evaluation Moderate Summary OT Impairments Strength,Balance,Functional Cognition,Functional Mobility, Self-Feeding,Grooming,Dressing ,Toileting,Bathing,Toilet Transfers,Shower Transfers, Activity Tolerance Progress Towards Goals Progressing Toward Goals Assessment Summary Pt needing increased time to follow command and to participate in mobility needs today. Pt needing concrete simple cues to follow. Pt once on his feet able to stand with COLLINS x1 with FWW, however needing 2 person assist for transfer due to high fear of falling and decreased vision and assist to guide the FWW. Pt to go to skilled rehab when medically stable. Goals Self-Feeding Goal Standby Assistance Grooming Goal Standby Assistance Dressing Goal Minimal Assistance Toileting Goal Minimal Assistance Bathing Goal Moderate Assistance Toilet Transfer Goal Contact Guard Assistance Shower Transfer Goal Minimal Assistance Days to Meet Goals 28 Frequency of Treatment Other frequency 5x/week Treatment Plan OT Treatment Plan ADL Training,Functional Mobility,Patient/Family Education,Discharge Planning Other Treatment Recommendations and Next Transfer with FWW with MODA X Treatment Focus 2 to [facility]. Discharge Recommendations OT Discharge Recommendations SNF Rehab Transportation Needs at Discharge Wheelchair/Cabulance
--- NOTE | 2024-09-08 16:21 | PM.PN.1 ---
Subjective Subjective Interval history: Summary: A 89-year-old male with history of prostate cancer urethral stricture as well as a chronic indwelling Nguyễn. He was recently diagnosed and treated with a UTI by Urology. On September 01, Nguyễn was placed. The patient was brought in for lethargy and decreased output into the Nguyễn. He was found to be volume depleted and has been treated with IV fluids and Cipro IV. He would significant encephalopathy as well as hallucinations. Serratia UTI, improving on Cipro. ECHO reveal new systolic dysfunction with EF 25-30% NSTEMI treated with a simple medical regimen of , BB, and statin. agreeable to SNF if approved by payor. Updates: No overnight events reported but spouse states he has mild hallucinations and is lethargic again today. Cr is slowly improving. Discussed possibility of dementia vs continued delirium, agreeable to trial of seroquel this evening. Exam Vital Signs (past 8 hours): - 09/08/24 09:00 Temperature 98.5 F Pulse Rate 74 Respiratory Rate 17 Blood Pressure 131/87 Pulse Oximetry 95 Oxygen Flow Rate 0 Oxygen Delivery Method Room Air Oxygen Flow Rate 0 Narrative Exam Narrative: NAD, somnolent, minimally interactive today, more responsive to spouse. Minimal speech. Lungs are clear, normal rate and effort. Heart is regular, no murmur gallop or rub. Abdomen is soft, non distended. Extremities are free of edema. Objective Labs 09/08/24 04:32 09/08/24 04:32 Labs: Laboratory Results - last 24 hr 09/08/24 04:32 WBC 7.7 RBC 3.43 L Hgb 11.3 L Hct 33.6 L MCV 98.1 MCH 32.9 MCHC 33.6 RDW 15.9 H Plt Count 246 Sodium 140 Potassium 3.5 Chloride 108 H Carbon Dioxide 20 L BUN 25 H Creatinine 1.19 Estimated GFR 59 L BUN/Creatinine Ratio 21.0 Glucose 114 H Calcium 9.0 PFSH Medical History History of urinary tract infection History of urinary retention Urinary tract infection Urinary frequency Slow transit constipation History of radioisotope therapy Dementia Depression, major, recurrent Incomplete emptying of bladder Urethral stricture High blood pressure Hematuria Obstructive sleep apnea Overweight Personal history of malignant neoplasm of prostate Open angle with borderline findings, low risk, bilateral Trigeminal neuralgia Unspecified lack of coordination Chronic gout, unspecified, without tophus (tophi) Mixed hyperlipidemia Essential hypertension Polyneuropathy, unspecified Type 2 diabetes mellitus with diabetic neuropathy, unspecified Cerebral amyloid angiopathy Nontraumatic intracranial hemorrhage, unspecified Vitiligo Actinic keratosis Pneumonia Pneumothorax Stroke Gout Mumps Measles Chicken pox Vertigo Hearing loss Cataracts, bilateral Hemorrhoid GERD (gastroesophageal reflux disease) Skin cancer Prostate cancer Type 2 diabetes mellitus Surgical History History of prostate biopsy Anesthesia History of eye surgery History of cataract removal with insertion of prosthetic lens (~1999) History of tonsillectomy (~1947) H/O blepharoplasty Family History Father History of heart disease Mother Stroke Brother Cancer Hypertension Hearing impairment Sister Cancer Stroke Hypertension Social History marital status: number of children: 2 household members: spouse Smoking Status: Former smoker alcohol intake: current Type(s) of exercise: other frequency: 1-2 times per week Assessment & Plan Assessment & Plan narrative: 1. Sepsis with acute metabolic encephalopathy, Acute kidney injury with oliguria (dehydration), present on admission and improving, - continue antibiotics noted below - secondary to #2 below - continue ciprofloxacin - LUIS improved, continues to have waxing and waning mentation over the last few days, a large decline from his baseline per spouse. Will start seroquel tonight to see if improvement with confusion. 2. Serratia UTI associated with catheter, present on admission and improving. Continue ciprofloxacin, 500 BID (renal function improved) continue 5 days total therapy here, urine cultures negative. 3. NSTEMI, present on admission and improved. EKG was reviewed which appears essentially unchanged compared to previous EKG from approximately 1 year ago. He does have a right bundle branch block, sinus rhythm with frequent PVCs. - medically manage currently with asa, statin, beta kobe and raciel inhibition. Outpatient cardiology consultation if within the goals of care depending on his state of recovery. 4. Hypomagnesemia, present on admission and improved. As noted, he is having some ectopy as noted on his EKG. Will place on telemetry. Will replete with IV magnesium. Recheck in the morning. 5. Anemia, stable. Normocytic. His hemoglobin has gradually been trending down since July of last year, at which time it was 12.0. He has no evidence of any GI bleeding. 6. Acute systolic heart failure by echo (possibly new), present on admission and active. Patient did have a significantly elevated BNP, some left-sided pleural effusion with cardiomegaly on chest x-ray and some ankle edema bilaterally. He has no crackles on examination. He has no dyspnea. Started on GDMT with ASA, statin, beta kobe. Will start low dose raciel inhibitor tomorrow. 7. Cerebrovascular disease and associated dementia, stable. Patient has cerebral angiopathy diagnosed in May of 2021. He does have cognitive deficits. There has been some discussion with the patient's spouse for consideration of placement. Would benefit from social work/discharge planning assessment to determine whether this would be indicated at this time. - continue memantine - start seroquel tonight 8. Diabetes mellitus type 2, stable. Well controlled. Will place on fingersticks and sliding scale as well as controlled carb diet. 9. Hypertension, stable. Continue amlodipine. Hold losartan given his LUIS. 10. Hyperlipidemia, stable. On simvastatin on an outpatient basis 11. GERD, stable. On pantoprazole on an outpatient basis. Await medication reconciliation RUSSEL: 1-2 days (07/08-). Looking at SNF right now, currently requiring lloyd lift in the room today. Code status Will be full code by default for now. However, he does have an advanced directive scanned into [employer] that does state he would like to be DNR in the event of a terminal prognosis of 1 year or less. Had long discussion with who stands by a full code at this time. Time-Based Coding :: [TOTAL MINUTES] spent with patient and on the chart (including review of chart, obtaining history, exam, reviewing outside data, placing orders, documenting exam and treatment plan, and counseling patient) on [DATE]. Quality VTE Deep Vein Thrombosis/Pulmonary Embolism Present on Admission: No
[2024-09-08 17:00] VITALS: BP 127/70; PULSE 72; RESP 15; TEMP 36.8; O2SAT 97
[2024-09-08] MEDS: NETARSUDIL LATANOPROST 1 EACH EYE-RIGHT (20:23)
[2024-09-08] MEDS: QUETIAPINE 25 MG TABLET PO (20:29)
[2024-09-08] MEDS: ATORVASTATIN 20 MG TABLET 40 MG PO (20:29)
[2024-09-08 21:00] VITALS: BP 121/69; PULSE 68; RESP 18; TEMP 36.6; O2SAT 100
[2024-09-09 04:33] VITALS: BP 128/76; PULSE 69; RESP 17; TEMP 36.4; O2SAT 95
[2024-09-09 08:00] VITALS: BP 135/79; PULSE 72; RESP 14; TEMP 36.3; O2SAT 95
[2024-09-09 08:27] LABS: Hematocrit 34.3 % (41-53); Hemoglobin 11.5 g/dL (13.5-17.5); Mean Corpuscular HGB Conc 33.5 % (30-36); Mean Corpuscular Volume 98.6 fL (80-100); Platelet Count 254 X10^3/uL (150-400); Red Blood Cell Count 3.48 X10^6/uL (4.5-5.9); Red Cell Distribution Width 15.9 % (11.6-14.8); White Blood Cell Count 10.2 X10^3/uL (4.5-11.0)
[2024-09-09 08:48] LABS: BUN Creatinine Ratio 22.8 (6-22); Blood Urea Nitrogen 26 mg/dL (9-20); Calcium 8.9 mg/dL (8.4-10.2); Carbon Dioxide 22 mmol/L (22-32); Chloride 108 mmol/L (98-107); Estimated Glomerular Filt Rate > 60 mL/min (>60); Glucose 137 mg/dL (80-110); HEMOLYSIS < 15 (0-50); Potassium 3.6 mmol/L (3.4-5.1); Sodium 141 mmol/L (137-145)
--- NOTE | 2024-09-09 09:18 | PT.IPTN ---
Current Diagnoses Acute kidney failure, unspecified (09/04/24) Physical Therapy Treatment Note M2 PT-IP Current Condition Start: 09/05/24 15:56 Freq: NEEDED Status: Active Protocol: Document 09/06/24 10:20 [facility] (Rec: 09/06/24 12:42 AB [id number]) Physical Therapy Current Condition Current Condition Evaluation Date 09/06/24 Treatment Diagnosis UTI; LUIS; difficulty in walking Onset Date 09/04/24 M3 PT-IP Subjective Start: 09/05/24 15:56 Freq: NEEDED Status: Active Protocol: Document 09/09/24 09:18 AB (Rec: 09/09/24 10:14 AB [id number]) Subjective Physical Therapy Visit Type Type Treatment Note Visit Start Time 09:18 Visit Stop Time 09:44 Number of INTERVENTIONAL NEURORADIOLOGIST Visits 0 M4 PT-IP Mobility and Gait Start: 09/05/24 15:56 Freq: NEEDED Status: Active Protocol: Document 09/09/24 09:18 AB (Rec: 09/09/24 10:14 AB [id number]) PT-Bed Mobility Assessment Supine to Sit Supine to Sit Maximum Assistance,1 Person Assistance,2 Person Assistance ,Head of Bed Elevated,Bedrails Scooting Scooting to Edge of Bed Maximum Assistance PT-Transfer Assessment Sit to and From Stand Sit to and from Stand Maximum Assistance,2 Person Assistance,Use of Upper Extremities Equipment Transfer Assistive Device Gait Belt,Front Wheeled Walker Orthotic/Prosthetic Devices or Brace: No Transfers Transfer Destination Chair Transfer Technique Stand Step Pivot Transfer Ability Level of Assist Maximum Assistance,Total Assistance,2 Person Assistance ,Use of Upper Extremities Comments Mobility Comments pt in bed and agreed to get up . BP: 137/78 . pt completed supine to sit max A x 1-2 and max cues with HOB elevated. pt requiring increase time to complete tasks and repeated cues. pt able to sit on EOB min A. needed max A for scooting to EOB. pt continues to have confusion but able to response to questions but inconsistent with following directions needing repeated cues. completed sit to stand max A x 2 and max cues and step transfer to chair using FWW max A x 2 to total A x 2. pt needing total assist x 2 towards end of transfer with freezing episode. positioned pt on the chair. call light and table placed within reach. M5 PT-IP Objective Assessments Start: 09/05/24 15:56 Freq: NEEDED Status: Active Protocol: Document 09/06/24 10:20 [facility] (Rec: 09/06/24 12:42 AB [id number]) Orientation Orientation/Cognition Level of Alertness Confusional State Orientation Name Safety Awareness Decreased Safety Awareness Memory Description Short Term Impaired,Fpc Impaired Strength Lower Extremity Strength Assessment Within Functional Limits Muscle Tone Muscle Tone WNL Yes M6 PT-IP Treatment Start: 09/05/24 15:56 Freq: NEEDED Status: Active Protocol: Document 09/09/24 09:18 AB (Rec: 09/09/24 10:14 AB [id number]) Physical Therapy Treatment Education Education Provided Safety M7 PT-IP Assessment and Plan Start: 09/05/24 15:56 Freq: NEEDED Status: Active Protocol: Document 09/09/24 09:18 AB (Rec: 09/09/24 10:14 AB [id number]) PT Summary Assessment and Plan Potential Rehabilitation Potential Fair Summary Impairments Pain,ROM,Strength,Balance, Coordination,Sensation,Tone, Cognition,Bed Mobility, Transfers,Gait,Activity Tolerance Progress Towards Goals Slow Progress due to Medical Issues,Slow Progress due to Activity Tolerance,Slow Progress - Other Assessment Summary pt requiring max A x 2 to total A x 2 with mobility and max cues with all tasks. pt continues to have confusion needing max cues and increase time to complete all tasks. pt will benefit from SNF rehab. will continue to assess. Goals Bed Mobility Goal Standby Assistance Transfer Goal Standby Assistance,Front Wheeled Walker Gait Goal Standby Assistance,Front Wheel Walker Gait Distance 50 Days to Meet Goals 10 Frequency of Treatment Frequency Of Treatment Once a Day Treatment Plan Physical Therapy Treatment Plan Bed Mobility Training,Transfer Training,Gait Training, Therapeutic Exercise,Balance Retraining,Discharge Planning, Hot or Cold Pack,Neuromuscular Re-ed,Coordination Retraining Precautions Other Precautions falls; contact precautions Recommendations To Nursing Amount of Assist Needed Mechanical Lift Discharge Recommendations PT Discharge Recommendations SNF Rehab Transportation Needs at Discharge Wheelchair/Cabulance,Stretcher /Ambulance
--- NOTE | 2024-09-09 10:57 | CM.DPNOTE ---
DCP Continued: Reviewed EMR and team rounds for pt?s medical status. Per hospitalist, pt is lethargic and could be a candidate for hospice, pending family discussion. DCP called Kaleb at [facility] and it is reported pt transfer is still dependent on a [employer] insurance authorization. DCP entered room, introduced self and role. Present in the room is pt's , Daly. DCP updated on pending insurance auth, she is agreeable with SNF placement plan for patient. She states the ultimate goal is to obtain more support in the home long-term as she is primary caregiver at this time. Plan: Pending insurance authorization at [facility]. CM Team will continue to follow for coordination of discharge plans. AV SandySW
[2024-09-09] MEDS: METOPROLOL IR 25 MG TABLET 12.5 MG PO ×2 (11:45→21:59)
[2024-09-09] MEDS: CIPROFLOXACIN 250 MG TABLET 500 MG PO ×2 (11:45→21:59)
[2024-09-09] MEDS: FINASTERIDE 5 MG TABLET PO (11:45)
[2024-09-09] MEDS: HEPARIN 5,000 UNIT/ML VIAL 5000 UNIT SUBCUT ×2 (11:46→21:59)
[2024-09-09] MEDS: lisinopriL 5 MG TABLET PO (11:46)
[2024-09-09] MEDS: ASPIRIN EC 81 MG TABLET PO (11:46)
[2024-09-09] MEDS: BRIMONIDINE TIMOLOL 1 EACH EYE-RIGHT ×2 (11:48→22:00)
[2024-09-09] MEDS: SODIUM CHLORIDE 0.9% FLUSH 10 ML IV ×2 (12:00→22:03)
[2024-09-09] MEDS: INSULIN LISPRO 100 UNIT/ML 3ML VIAL SUBCUT (12:13)
[2024-09-09] MEDS: ACETAMINOPHEN 325 MG TABLET 650 MG PO (13:29)
--- NOTE | 2024-09-09 15:17 | P.PN_ITS ---
Subjective Subjective Interval history: Summary: A 89-year-old male with history of prostate cancer urethral stricture as well as a chronic indwelling Nguyễn. He was recently diagnosed and treated with a UTI by Urology. On September 01, Nguyễn was placed. The patient was brought in for lethargy and decreased output into the Nguyễn. He was found to be volume depleted and has been treated with IV fluids and Cipro IV. He would significant encephalopathy as well as hallucinations. Serratia UTI, improving on Cipro. ECHO reveal new systolic dysfunction with EF 25-30% NSTEMI treated with a simple medical regimen of , BB, and statin. agreeable to SNF if approved by payor. Updates: No overnight events reported. He was a bit groggy this morning, did not eat. But this afternoon he was much more alert and interactive, doing quite well per spouse and he ate most of his lunch. Exam Vital Signs (past 8 hours): - 09/09/24 08:00 Temperature 97.3 F L Pulse Rate 72 Respiratory Rate 14 Blood Pressure 135/79 Pulse Oximetry 95 Oxygen Flow Rate 0 Oxygen Delivery Method Room Air Oxygen Flow Rate 0 Narrative Exam Narrative: NAD, somnolent and interactive. Minimal speech. Lungs are clear, normal rate and effort. Heart is regular, no murmur gallop or rub. Abdomen is soft, non distended. Extremities are free of edema. Objective Labs 09/09/24 08:08 09/09/24 08:08 Labs: Laboratory Results - last 24 hr 09/09/24 08:08 WBC 10.2 RBC 3.48 L Hgb 11.5 L Hct 34.3 L MCV 98.6 MCH 33.0 MCHC 33.5 RDW 15.9 H Plt Count 254 Sodium 141 Potassium 3.6 Chloride 108 H Carbon Dioxide 22 BUN 26 H Creatinine 1.14 Estimated GFR > 60 BUN/Creatinine Ratio 22.8 H Glucose 137 H Calcium 8.9 PFSH Medical History History of urinary tract infection History of urinary retention Urinary tract infection Urinary frequency Slow transit constipation History of radioisotope therapy Dementia Depression, major, recurrent Incomplete emptying of bladder Urethral stricture High blood pressure Hematuria Obstructive sleep apnea Overweight Personal history of malignant neoplasm of prostate Open angle with borderline findings, low risk, bilateral Trigeminal neuralgia Unspecified lack of coordination Chronic gout, unspecified, without tophus (tophi) Mixed hyperlipidemia Essential hypertension Polyneuropathy, unspecified Type 2 diabetes mellitus with diabetic neuropathy, unspecified Cerebral amyloid angiopathy Nontraumatic intracranial hemorrhage, unspecified Vitiligo Actinic keratosis Pneumonia Pneumothorax Stroke Gout Mumps Measles Chicken pox Vertigo Hearing loss Cataracts, bilateral Hemorrhoid GERD (gastroesophageal reflux disease) Skin cancer Prostate cancer Type 2 diabetes mellitus Surgical History History of prostate biopsy Anesthesia History of eye surgery History of cataract removal with insertion of prosthetic lens (~1999) History of tonsillectomy (~194) H/O blepharoplasty Family History Father History of heart disease Mother Stroke Brother Cancer Hypertension Hearing impairment Sister Cancer Stroke Hypertension Social History marital status: number of children: 2 household members: spouse Smoking Status: Former smoker alcohol intake: current Type(s) of exercise: other frequency: 1-2 times per week Assessment & Plan Assessment & Plan narrative: 1. Sepsis with acute metabolic encephalopathy, Acute kidney injury with oliguria (dehydration), present on admission and improving, - continue antibiotics noted below - secondary to #2 below - continue ciprofloxacin - LUIS improved, continues to have waxing and waning mentation over the last few days, a large decline from his baseline per spouse. Much better after seroquel but will reduce dose given somnolence this morning. 2. Serratia UTI associated with catheter, present on admission and improving. Continue ciprofloxacin, 500 BID (renal function improved) continue 5 days total therapy here, urine cultures negative. 3. NSTEMI, present on admission and improved. EKG was reviewed which appears essentially unchanged compared to previous EKG from approximately 1 year ago. He does have a right bundle branch block, sinus rhythm with frequent PVCs. - medically manage currently with asa, statin, beta kobe and raciel inhibition. Outpatient cardiology consultation if within the goals of care depending on his state of recovery. 4. Hypomagnesemia, present on admission and improved. As noted, he is having some ectopy as noted on his EKG. Will place on telemetry. Will replete with IV magnesium. Recheck in the morning. 5. Anemia, stable. Normocytic. His hemoglobin has gradually been trending down since July of last year, at which time it was 12.0. He has no evidence of any GI bleeding. 6. Acute systolic heart failure by echo (possibly new), present on admission and active. Patient did have a significantly elevated BNP, some left-sided pleural effusion with cardiomegaly on chest x-ray and some ankle edema bilaterally. He has no crackles on examination. He has no dyspnea. Started on GDMT with ASA, statin, beta kobe. Will start low dose raciel inhibitor tomorrow. 7. Cerebrovascular disease and associated dementia, stable. Patient has cerebral angiopathy diagnosed in May of 2021. He does have cognitive deficits. - continue memantine - started seroquel 25 mg with improvement today, decrease to 12.5 mg tonight as he was a bit somnolent this morning but did sleep well per spouse's report. Will need to stabilize dose prior to discharge to [facility]. 8. Diabetes mellitus type 2, stable. Well controlled. Will place on fingersticks and sliding scale as well as controlled carb diet. 9. Hypertension, stable. Continue amlodipine. Hold losartan given his LUIS. 10. Hyperlipidemia, stable. On simvastatin on an outpatient basis 11. GERD, stable. On pantoprazole on an outpatient basis. Await medication reconciliation RUSSEL: 1-2 days while adjusting seroquel dosing. Earliest per [facility] with adjustment tonight would be 3/2 (Thursday). Also still awaiting SNF authorization. Code status Will be full code by default for now. However, he does have an advanced directive scanned into [employer] that does state he would like to be DNR in the event of a terminal prognosis of 1 year or less. Had long discussion with who stands by a full code at this time. Time-Based Coding :: [TOTAL MINUTES] spent with patient and on the chart (including review of chart, obtaining history, exam, reviewing outside data, placing orders, documenting exam and treatment plan, and counseling patient) on [DATE]. Quality VTE Deep Vein Thrombosis/Pulmonary Embolism Present on Admission: No
[2024-09-09 16:00] VITALS: BP 87/56; PULSE 53; RESP 15; TEMP 36; O2SAT 94
--- NOTE | 2024-09-09 16:10 | DIET.CONS ---
Dietary Consultation Note Admission Date: 09/04/2024 16:10 Assessment: 89 y M admitted for sepsis/uti. Dietitian screened for LOS. Spoke to spouse in room about pt's food preferences. reports pt usually with good appetite outside hospital, eating full 3 meals per day and Ensure. Weight is usually around 70.5-75 kg (155-165 lb). Pt only eats with . She is not here in morning, so unsure what his PO intakes in the morning have been. Discussed foods he would be most likely to eat in the morning: cereal hot or cold with low fat milk. Additionally, she notes he would prefer veggie tray with dip/dressing over salad. At home drinks Ensure max 1x/d chocolate. Has been getting them BID here. Reports used to do Enlive/plus but started to gain too much weight. Ensure max keeps weight stable. Pt has been eating less than he does at home (avg. recorded PO intakes 30%). open to do Ensure plus/Enlive while he is here to help meet EER. Ht: 170.18 cm Wt: 76.204 kg BMI: 26.3 UBW: 72.575 kg on 08/09/24, weight usually 70.5-75 kg per Last BM: 09/03/24 (09/04/24 17:17) MNA: Mitch Score: 18 Diet: 09/04/24 Dinner Carbohydrate Consistent Diet Diet Modifications: 2 gram sodium Carbohydrate level: Medium (3 CHO) Reflex DM orders: No Food Texture: Level 7 - [id number] Liquid Consistency: Level 0 - Thin Carbohydrate Consistent Diet Diet Modifications: low sodium diet Carbohydrate level: Medium (3 CHO) Reflex DM orders: No Food Texture: Level 7 - Regular Liquid Consistency: Level 0 - Thin Courtesy Tray (Peds, comfort care) Diet Modifications: 09/09/24 Lunch Courtesy Tray (Peds, comfort care) Diet Modifications: Nutrition Percent Meal Consumed 25% 09/08/24 18:00 Percent Meal Consumed 50% 09/08/24 14:00 Percent Meal Consumed 25% 09/07/24 18:00 Labs: RBC 3.48 X10^6/uL (4.5-5.9) L 09/09/24 08:08 Hgb 11.5 g/dL (13.5-17.5) L 09/09/24 08:08 Hct 34.3 % (41-53) L 09/09/24 08:08 Creatinine 1.14 mg/dL (0.66-1.25) 09/09/24 08:08 NT-Pro-B Natriuret Pep 23736 pg/mL (<450) H 09/04/24 12:10 Nutrition Diagnosis: Inadequate oral intakes r/t change in environment and decreased appetite aeb average PO intakes during stay <50% x5 days Interventions: -Changed Ensure max to Ensure enlive/plus while PO intakes <50% -Coordinated preferences with unit host and ordered breakfast preferences ahead of time EER: 1700 kcals (22 kcals/kg per BMI/sepsis) Monitoring/Evaluations: PO intakes, breakfast tolerance Electronically Signed by: Willa Lentz 09/09/24 16:10 Clinical Dietitian [address] [address]
[2024-09-09 17:00] VITALS: BP 101/61
[2024-09-09 20:10] VITALS: BP 106/66; PULSE 70; RESP 17; TEMP 36.5; O2SAT 96
[2024-09-09] MEDS: QUETIAPINE 25 MG TABLET 12.5 MG PO (21:59)
[2024-09-09] MEDS: NETARSUDIL LATANOPROST 1 EACH EYE-RIGHT (22:02)
[2024-09-09] MEDS: ATORVASTATIN 20 MG TABLET 40 MG PO (22:02)
[2024-09-09] MEDS: BRINZOLAMIDE 1% 1 EACH EYE-RIGHT (22:06)
[2024-09-10 05:48] VITALS: BP 99/62; PULSE 64; RESP 18; TEMP 36.2; O2SAT 94
--- NOTE | 2024-09-10 10:55 | PT.IPTN ---
Current Diagnoses Acute kidney failure, unspecified (09/04/24) Physical Therapy Treatment Note M2 PT-IP Current Condition Start: 09/05/24 15:56 Freq: NEEDED Status: Active Protocol: Document 09/06/24 10:20 AB (Rec: 09/06/24 12:42 AB [id number]) Physical Therapy Current Condition Current Condition Evaluation Date 09/06/24 Treatment Diagnosis UTI; LUIS; difficulty in walking Onset Date 09/04/24 M3 PT-IP Subjective Start: 09/05/24 15:56 Freq: NEEDED Status: Active Protocol: Document 09/10/24 10:55 AB (Rec: 09/10/24 12:25 AB [id number]) Subjective Physical Therapy Visit Type Type Treatment Note Visit Start Time 10:55 Visit Stop Time 11:25 Number of [employer] TECHNICIAN Visits 0 Physical Therapy Visit Comments Patient Comments agreeable to do PT M4 PT-IP Mobility and Gait Start: 09/05/24 15:56 Freq: NEEDED Status: Active Protocol: Document 09/10/24 10:55 AB (Rec: 09/10/24 12:25 AB [id number]) PT-Bed Mobility Assessment Supine to Sit Supine to Sit Minimal Assistance PT-Transfer Assessment Sit to and From Stand Sit to and from Stand Moderate Assistance,1 Person Assistance,Use of Upper Extremities Equipment Transfer Assistive Device Gait Belt,Front Wheeled Walker Orthotic/Prosthetic Devices or Brace: No Transfers Transfer Destination Chair Transfer Technique Stand Step Pivot Transfer Ability Level of Assist Maximum Assistance,1 Person Assistance,Use of Upper Extremities Comments Mobility Comments pt in bed and have his eyes closed. spouse in room. pt able to respond to questions and agreed to get up. pt continues to require max cues with all tasks and increase time to complete tasks. pt completed supine to sit min A and cues. HOB elevated and pt used bed rail. pt able to sit on EOB CGA. pt completed sit to stand mod A and step transfer to chair using FWW max A and max cues. pt refused to ambulate but agreed to stay up on the chair. positioned pt on the chair. call light and table placed within reach. Left pt with spouse. M5 PT-IP Objective Assessments Start: 09/05/24 15:56 Freq: NEEDED Status: Active Protocol: Document 09/06/24 10:20 AB (Rec: 09/06/24 12:42 AB [id number]) Orientation Orientation/Cognition Level of Alertness Confusional State Orientation Name Safety Awareness Decreased Safety Awareness Memory Description Short Term Impaired,Fdc Impaired Strength Lower Extremity Strength Assessment Within Functional Limits Muscle Tone Muscle Tone WNL Yes M6 PT-IP Treatment Start: 09/05/24 15:56 Freq: NEEDED Status: Active Protocol: Document 09/10/24 10:55 AB (Rec: 09/10/24 12:25 AB [id number]) Physical Therapy Treatment Education Education Provided Safety M7 PT-IP Assessment and Plan Start: 09/05/24 15:56 Freq: NEEDED Status: Active Protocol: Document 09/10/24 10:55 AB (Rec: 09/10/24 12:25 AB [id number]) PT Summary Assessment and Plan Potential Rehabilitation Potential Fair Summary Impairments Pain,ROM,Strength,Balance, Coordination,Sensation,Tone, Cognition,Bed Mobility, Transfers,Gait,Activity Tolerance Progress Towards Goals Slow Progress due to Medical Issues,Slow Progress due to Activity Tolerance,Slow Progress - Other Assessment Summary pt improving slowly with mobility requiring mod to max A for transfers using fWW. pt continues to have confusion affecting safety awareness and level of assistance needed. pt plans to d/c to SNF pending insurance auth. Goals Bed Mobility Goal Standby Assistance Transfer Goal Standby Assistance,Front Wheeled Walker Gait Goal Standby Assistance,Front Wheel Walker Gait Distance 50 Days to Meet Goals 10 Frequency of Treatment Frequency Of Treatment Once a Day Treatment Plan Physical Therapy Treatment Plan Bed Mobility Training,Transfer Training,Gait Training, Therapeutic Exercise,Balance Retraining,Discharge Planning, Hot or Cold Pack,Neuromuscular Re-ed,Coordination Retraining Precautions Other Precautions falls; contact precautions Recommendations To Nursing Amount of Assist Needed Mechanical Lift Discharge Recommendations PT Discharge Recommendations SNF Rehab Transportation Needs at Discharge Wheelchair/Cabulance
[2024-09-10 10:57] VITALS: BP 116/70; RESP 20; TEMP 36.7; O2SAT 95
[2024-09-10] MEDS: METOPROLOL IR 25 MG TABLET 12.5 MG PO (11:02)
[2024-09-10] MEDS: ASPIRIN EC 81 MG TABLET PO (11:02)
[2024-09-10] MEDS: BRIMONIDINE TIMOLOL 1 EACH EYE-RIGHT ×2 (11:03→11:06)
[2024-09-10] MEDS: HEPARIN 5,000 UNIT/ML VIAL 5000 UNIT SUBCUT (11:03)
[2024-09-10] MEDS: FINASTERIDE 5 MG TABLET PO (11:05)
[2024-09-10] MEDS: SODIUM CHLORIDE 0.9% FLUSH 10 ML IV (11:05)
[2024-09-10] MEDS: BRINZOLAMIDE 1% 1 EACH EYE-RIGHT (11:06)
[2024-09-10] MEDS: CIPROFLOXACIN 250 MG TABLET 500 MG PO (11:08)
--- NOTE | 2024-09-10 11:22 | PM.DS.1 ---
History of Present Illness History of Present Illness Date Patient Seen: 09/10/24 Time Patient Seen: 11:22 Chief complaint: Urine output issue Narrative: Per admitting provider, 89-year-old gentleman with remote history of prostate cancer with residual urethral stricture who had his chronic indwelling Nguyễn catheter removed in June of 2024. He had been doing well on a combination of Flomax, finasteride, and myrbetriq at that time. myrbetriq was subsequently either discontinued or reduced in dose (spouse is a bit fuzzy on the details). He reportedly was in for follow-up postvoid residual nurse visits in June as well as late July. But up both of those visits, he had no significant postvoid residuals. He recently developed increasing difficulty with emptying his bladder. He has been having to force the urine out. He would typically move his bowels at the same time as urinating due to the amount of pushing he had to do. He evidently saw Dr. Abel last week and was found to have a UTI. It was noted in that visit that he had had a UTI with a urine culture on August 29 for which he was placed on Cipro. It appears on August 30, patient was restarted on myrbetriq [address] Abel also recommended the patient see Dr. Crespo for consideration of placement due to his increasing care needs. He was seen by Dr. Crespo on September 01 for his routine 3 month follow-up. Lab work was ordered inclusive of a BMP, CBC, and hemoglobin A1c. Labs revealed a hemoglobin of 10.7, BUN 25, creatinine 1.44, hemoglobin A1c was 6.8%. At baseline, creatinine is 1.0. Patient presented to the emergency department on September 03 secondary to inability to empty his bladder since the evening prior. Approximately 400 cc of urine drained. It was clear, nonbloody, no clot. UA was negative. Labs were deferred secondary to them having been done just on the afternoon of September 01. After the Nguyễn catheter was placed, they return home. Patient's spouse reports that very little urine drain. She attempted to get him to drink fluids, but it was quite difficult. Her neighbor was able to get him to take approximately 2 cups of fluid via spoon through the day yesterday. Spouse notes that he did have a trickle of urine after that. Quickly, she was able to get him to drink 2 cups of fluid last night. Again she was able to get a trickle of urine. However, this morning she noticed that there was no urine draining from the catheter. She subsequently brought him back into the emergency department due to concerns about no urine output. A bladder scan was done which revealed no urine in the bladder. On arrival, temp was 98.3?, heart rate 61, respiratory rate 16, BP 86/54, O2 sats 97% on room air. After receiving a gentle fluid bolus, blood pressures did come up to the low 100s systolic. Labs revealed a white blood cell count of 9.2, hemoglobin 9.8, platelets of 261. Chemistry revealed a sodium of 135, potassium 3.7, BUN of 41 up from 25 on September 01, creatinine up to 2.14. Glucose was 123. Magnesium was low at 1.2. Initial troponin was elevated at 2.56, follow-up was improved at 2.35. BNP [place] [address]. UA revealed 3+ blood 3+ leukocyte esterase 30-100 white cells per high-powered field, moderate bacteria and 1+ mucus. Chest x-ray revealed cardiomegaly with a left-sided pleural effusion. Mild interstitial prominence can be seen. May be related to pulmonary edema versus artifact. CHF should be considered. A renal ultrasound was ordered by the ED as well. Patient reports he does not have much of an appetite. He denies any chest pain/tightness/pressure. Denies any shortness of breath. No nausea. No abdominal pain. His notes that typically he is up and ambulatory. He helps his with the dishes and dusting. He does move about the rooms of his home. Over the last week he has not been doing those usual activities. She has not noted any specific leg edema. Discharge Providers Provider Date of admission: 09/04/24 16:10 Discharge Date: 09/10/24 Primary care physician: Jsoeph Crespo MD Consults: 09/05/24 14:05 Consult to Occupational Therapy Evaluate & Treat Comment: Physician Instructions: Evaluate and treat Consult to Physical Therapy Evaluate & Treat Comment: Physician Instructions: Evaluate and Treat 09/08/24 11:25 Consult to Home Health Routine Comment: Reason For Exam: If patient discharges home- services Discharge provider: Justin Kamara DO Summary Hospital Course Discharge Diagnosis: 1. Sepsis with acute metabolic encephalopathy, Acute kidney injury with oliguria (dehydration), present on admission and improving, 2. Serratia UTI associated with catheter, present on admission and improving. 3. NSTEMI, present on admission and improved. 4. Hypomagnesemia, present on admission and improved. 5. Anemia, stable. 6. Acute systolic heart failure by echo (possibly new), present on admission and active. 7. Cerebrovascular disease and associated dementia, stable. 8. Diabetes mellitus type 2, stable. 9. Hypertension, stable. 10. Hyperlipidemia, stable. 11. GERD, stable. Hospital Course: This is an 89-year-old male with a past medical history of cerebral angiopathy with dementia, type 2 diabetes, hypertension, hyperlipidemia who was admitted with weakness and an acute encephalopathy, after having difficulties with urine output as described in the HPI. He was found to have a positive urinalysis and started on antibiotics for possible urinary tract infection after recent outpatient therapy. He also had an elevated troponin which was slowly improving. Echocardiogram was performed which showed a newly reduced ejection fraction of 25-30%. He had no chest pain on presentation but was treated initially with medical management only for a possible NSTEMI. Outpatient follow-up with Cardiology is recommended if consistent with a goals of care for him. He was started on an aspirin, statin, beta-kobe, and low-dose MANDI inhibitor for goal-directed medical therapy. He is on minimal beta-kobe and MANDI inhibition due to low normal blood pressures at the time of discharge. He has not required any diuresis for volume overload. He was treated with ciprofloxacin for presumed sepsis as well, and initially continued to have waxing and waning mentation over the course of his admission with occasional hallucinations. This improved with Seroquel at night, though dosing did need to be reduced to 12.5 mg for mild daytime somnolence which improved over the course of the day. He was seen by Physical and Occupational therapy with slow improvement but recommendation for assisted facility for continued therapy prior to ultimate return hopefully home. Time Spent with Patient Time spent: Greater than 30 minutes Exam Vital Signs (past 8 hours): - 09/10/24 05:48 09/10/24 10:57 Temperature 97.2 F L 98.1 F Pulse Rate 64 Respiratory Rate 18 20 Blood Pressure 99/62 116/70 Pulse Oximetry 94 95 Oxygen Flow Rate 0 0 Oxygen Delivery Method Room Air Oxygen Flow Rate 0 Narrative Exam Narrative: NAD, somnolent and interactive. Minimal speech. Lungs are clear, normal rate and effort. Heart is regular, no murmur gallop or rub. Abdomen is soft, non distended. Extremities are free of edema. Objective Labs 09/09/24 08:08 09/09/24 08:08 PENDING SALE TO [facility] Medical History History of urinary tract infection History of urinary retention Urinary tract infection Urinary frequency Slow transit constipation History of radioisotope therapy Dementia Depression, major, recurrent Incomplete emptying of bladder Urethral stricture High blood pressure Hematuria Obstructive sleep apnea Overweight Personal history of malignant neoplasm of prostate Open angle with borderline findings, low risk, bilateral Trigeminal neuralgia Unspecified lack of coordination Chronic gout, unspecified, without tophus (tophi) Mixed hyperlipidemia Essential hypertension Polyneuropathy, unspecified Type 2 diabetes mellitus with diabetic neuropathy, unspecified Cerebral amyloid angiopathy Nontraumatic intracranial hemorrhage, unspecified Vitiligo Actinic keratosis Pneumonia Pneumothorax Stroke Gout Mumps Measles Chicken pox Vertigo Hearing loss Cataracts, bilateral Hemorrhoid GERD (gastroesophageal reflux disease) Skin cancer Prostate cancer Type 2 diabetes mellitus Surgical History History of prostate biopsy Anesthesia History of eye surgery History of cataract removal with insertion of prosthetic lens (~1999) History of tonsillectomy (~1947) H/O blepharoplasty Family History Father History of heart disease Mother Stroke Brother Cancer Hypertension Hearing impairment Sister Cancer Stroke Hypertension Social History marital status: number of children: 2 household members: spouse Smoking Status: Former smoker alcohol intake: current Type(s) of exercise: other frequency: 1-2 times per week Discharge Plan Discharge Plan Patient Disposition: SNF Transfer to: [facility] [place] Provider Discharge Comment: Patient was admitted to the hospital with urine infection and encephalopathy. Has had slow improvement with antibiotics. Also with cognitive impairment, started on seroquel with improvement. Transfer to SNF for ongoing therapies after discharge prior to hopeful return home. Discharge orders & Medications Prescriptions: New hydrocortisone 1 % Cream 1 applic topical TID PRN (Reason: Itching) Qty: 28.35 0RF ciprofloxacin HCl 500 mg tablet 500 mg PO 0700,2100 2 Days Qty: 4 0RF aspirin 81 mg Tablet,Delayed Release (Dr/Ec) 81 mg PO DAILY Qty: 30 0RF atorvastatin 40 mg tablet 40 mg PO BEDTIME Qty: 30 0RF quetiapine 25 mg Tablet 12.5 mg PO BEDTIME 30 Days Qty: 15 0RF acetaminophen 325 mg Tablet 650 mg PO Q6H PRN (Reason: Fever/Mild Pain (1-3)) Qty: 30 0RF metoprolol tartrate 25 mg Tablet 12.5 mg PO BID 30 Days Qty: 30 0RF lisinopril 2.5 mg tablet 2.5 mg PO DAILY Qty: 30 0RF Continued metformin 500 mg tablet 1,000 mg PO BID Qty: 360 3RF memantine 5 mg tablet 5 mg PO BID Qty: 180 3RF pantoprazole 40 mg tablet,delayed release (DR/EC) 40 mg PO BID Qty: 180 3RF tamsulosin 0.4 mg capsule 0.8 mg PO BEDTIME Qty: 180 3RF allopurinol 300 mg tablet 300 mg PO DAILY Qty: 90 3RF mirtazapine 15 mg tablet 7.5 mg PO BEDTIME Qty: 45 3RF Hold Instructions: poss. sedation cholecalciferol (vitamin D3) 25 mcg (1,000 unit) capsule 25 mcg PO DAILY brinzolamide 1 % drops,suspension 1 drp EYE-RIGHT BID brimonidine-timolol [Combigan] 0.2-0.5 % drops 1 drp EYE-RIGHT BID Patient Comments: INSTILL 1 DROP IN THE RIGHT EYE EVERY 12 HOURS mirabegron 25 mg tablet extended release 24 hr 50 mg PO DAILY PRN (Reason: overactive bladder) Hold Instructions: anuria docusate sodium [Colace] 100 mg capsule 100 mg PO DAILY PRN (Reason: Constipation) finasteride 5 mg tablet 5 mg PO DAILY Qty: 30 12RF Rocklatan 0.02-0.005 % drops 1 drp EYE-RIGHT DAILY Discontinued amlodipine 10 mg tablet 10 mg PO DAILY Qty: 90 3RF simvastatin 20 mg tablet 20 mg PO BEDTIME Qty: 90 3RF losartan 100 mg tablet 100 mg PO DAILY Qty: 90 3RF ciprofloxacin HCl [Cipro] 500 mg tablet 500 mg PO BID Qty: 20 0RF Rx Instructions: Patient to hold simvastatin while taking this medication Follow up/Referrals: Joseph Crespo MD [Primary Care Provider] - Visit Report/Discharge Packet Stand Alone Forms: Patient Portal/API Discharge Data Primary Care Provider: Joseph Crespo V Quality VTE Deep Vein Thrombosis/Pulmonary Embolism Present on Admission: No
[2024-09-10] MEDS: INSULIN LISPRO 100 UNIT/ML 3ML VIAL SUBCUT (12:55)
--- NOTE | 2024-09-10 14:40 | CM.DPNOTE ---
DC Note Kaleb at [facility] secured auth through [employer] and can admit patient today. S arranged for fern picker at 1pm. Spouse aware and agreeable to plan. [facility] medical necessity form completed, signed and provided to [facility] crew with FS. Patient is Full Code at this time, confirmed by spouse. Emailed all DC ppk to Kaleb including hospital exempt [facility], DC Summary, DC report, signed med list. Patient discharged on new Rx for seroquel. RN to RN report called by bedside nurse. Plan: Discharge to [facility] via BLS. Hosp exempt [facility] faxed to Brittani Henson, [facility] strategic planning consultant. ANNIKA
--- NOTE | 2024-09-10 15:00 | PC.NURSE ---
Have called facility to give report to Derian. Did not answer. My direct line left on his phone [phone]. Derian can call anytime.
== END 2024-09-10 11:20 | DRG 698 ==
LOC: ED 12:00 → AC 16:11
PROVIDERS: Hospitalist; Admitting Provider Family Medicine; Emergency Provider Emergency Medicine; Family Provider Internal Medicine; PCP Internal Medicine; Referring Provider Emergency Medicine; Visit Provider Family Medicine
DX: T83.511A Infection and inflammatory reaction due to indwelling urethral catheter, initial encounter (principal); A41.9 Sepsis, unspecified organism; G93.41 Metabolic encephalopathy; I21.3 ST elevation (STEMI) myocardial infarction of unspecified site; I50.21 Acute systolic (congestive) heart failure; R65.20 Severe sepsis without septic shock; N17.9 Acute kidney failure, unspecified; F03.92 Unspecified dementia, unspecified severity, with psychotic disturbance; F03.93 Unspecified dementia, unspecified severity, with mood disturbance; N39.0 Urinary tract infection, site not specified; B96.89 Other specified bacterial agents as the cause of diseases classified elsewhere; I45.10 Unspecified right bundle-branch block; I49.3 Ventricular premature depolarization; E83.42 Hypomagnesemia; D64.9 Anemia, unspecified; I67.9 Cerebrovascular disease, unspecified; E11.9 Type 2 diabetes mellitus without complications; E78.5 Hyperlipidemia, unspecified; K21.9 Gastro-esophageal reflux disease without esophagitis; E86.0 Dehydration; R33.9 Retention of urine, unspecified; I11.0 Hypertensive heart disease with heart failure; N35.919 Unspecified urethral stricture, male, unspecified site; M10.9 Gout, unspecified; Y73.1 Therapeutic (nonsurgical) and rehabilitative gastroenterology and urology devices associated with adverse incidents; Z87.891 Personal history of nicotine dependence; Z85.46 Personal history of malignant neoplasm of prostate; Z66 Do not resuscitate; Z79.84 Long term (current) use of oral hypoglycemic drugs; E11.40 Type 2 diabetes mellitus with diabetic neuropathy, unspecified; Z87.440 Personal history of urinary (tract) infections
CPT/HCPCS: 36415; 51702; 51798; 71045; 76770; 80048; 80053; 81001; 82550; 82962; 83036; 83690; 83735; 83880; 84484; 85025; 85027; 85610; 85730; 87086; 93005; 93306; 97163; 97166; 97530; 97535; 99283; 99284; 99406; J1644; J1815; J3475